=== PATIENT | male | born 1950 | race Caucasian/White ===

== ENCOUNTER 2016-05-01 10:56 | Emergency (ER) | payer MEDICARE, OTHER ==
[~2016-05-01] VITALS: Ht 162.6 cm; Wt 80.0 kg
[~2016-05-01 10:56] MED LIST: ASPI-650 PO; ATOR80TA75 PO; BENA10TA48 PO; CARV3.12 PO; CLON0.5T4 PO; FURO-110 PO; ISOS30TA5 PO; MONT10TA24 PO; OMEG500C PO; PYRI50CA PO; RANI150C11 PO; RANO500T2 PO
[2016-05-01 11:00] VITALS: Ht 162.6 cm; Wt 80.0 kg
[2016-05-01] MEDS ORDERED: NAPR-260 PO (12:52)
[2016-05-01] MEDS ORDERED: AMOX1TAB10 PO (12:52)
--- NOTE | 2016-05-01 12:59 | ERD ---
ER Documentation Chief Complaint Date/Time DATE: 05/01/16 TIME: 12:56 Chief Complaint pt bib family with c/o left ear swelling since yesterday HPI This is a 65-year-old male who presents to the emergency department today complaining of left ear pain that is sharp and stabbing and some swelling that started yesterday. Patient states he had a fever yesterday. Patient states he took [place] and ibuprofen. Patient states that 5 year 8- he took amoxicillin as he had many of his teeth removed and had dentures placed. Denies any sore throat, headache. ROS All systems reviewed and are negative except as per history of present illness. Medications Home Meds Active Scripts Naproxen* (Naprosyn*) 500 Mg Tablet, 500 MG PO BID Y for PAIN AND/OR INFLAMMATION, #30 TAB Prov:MALAIKA JUAREZ PA-C 05/01/16 Amoxicillin/Potassium Clav (Amox-Clav 875-125 mg Tablet) 875-125 mg Tab, 1 TAB PO BID for 10 Days, #20 TAB Prov:MALAIKA JUAREZ PA-C 05/01/16 Reported Medications Clonazepam* (Clonazepam*) 0.5 Mg Tablet, 0.5 MG PO DAILY 02/02/14 Pyridoxine Hcl* (Vitamin B-6*) 50 Mg Capsule, 100 MG PO DAILY 02/02/14 Furosemide* (Lasix*) 20 Mg Tablet, 20 MG PO Q48 PT TAKES LASIX 20 MG EVERY OTHER DAY. 02/02/14 Atorvastatin* (Atorvastatin*) 80 Mg Tablet, 80 MG PO DAILY 02/02/14 Montelukast Sodium* (Montelukast Sodium*) 10 Mg Tablet, 10 MG PO DAILY, TAB 0 Refills 07/19/13 [place]-3 Fatty Acids (Fish Oil) 500 Mg Capsule.dr, 1000 MG PO TID 07/19/13 Carvedilol* (Coreg*) 3.125 Mg Tablet, 3.125 MG PO DAILY, TAB 07/19/13 Isosorbide Mononitrate* (Isosorbide Mononitrate*) 30 Mg Tab.er.24h, 90 MG PO DAILY, TAB 07/19/13 Ranolazine* (Ranexa*) 500 Mg Tabsr, 1000 MG PO BID PT TAKES 2 TABS BID 1/16/13 Benazepril Hcl* (Benazepril Hcl*) 10 Mg Tablet, 10 MG PO BID 03/22/12 Aspirin (Aspirin) 81 Mg Tablet, 81 MG PO DAILY, 0 Refills 03/22/12 Ranitidine Hcl (Ranitidine Hcl) 150 Mg Capsule, 150 MG PO BID 03/22/12 Allergies Allergies: Coded Allergies: No Known Drug Allergies (Verified Allergy, Unknown, 07/19/13) PMhx/Soc History of Surgery: Yes (STENTS PLACEMENT X 12 SINCE 2004.) Anesthesia Reaction: No Hx Neurological Disorder: No Hx Respiratory Disorders: No Hx Cardiac Disorders: Yes (ME, HTN, 30%EF) Hx Psychiatric Problems: No Hx Miscellaneous Medical Probl: No Hx Alcohol Use: No Hx Substance Use: No Hx Tobacco Use: No (QUIT IN 2012) Smoking Status: Former smoker Physical Exam Vitals Vital Signs Date Time Temp Pulse Resp B/P Pulse Ox O2 Delivery O2 Flow Rate FiO2 05/01/16 11:00 97.5 68 16 117/65 100 Physical Exam Const: Talkative, laughing, no acute distress Head: Atraumatic Eyes: Normal Conjunctiva ENT: Right ear TM normal. Left ear mild TM erythema. Nose no drainage. Throat no erythema no exudate. Evidence of tooth removal. No evidence of abscess. Nontender tragus. Nontender mastoid. Neck: Full range of motion..~ No meningismus. Resp: Clear to auscultation bilaterally Cardio: Regular rate and rhythm, no murmurs Abd: Soft, non tender, non distended. Normal bowel sounds Skin: No petechiae or rashes Neur: Awake and alert Psych: Normal Mood and Affect Procedures/MDM This 65-year-old male who presents to the emergency department today complaining of left ear pain that started yesterday. Patient indicated that he had fevers. Patient is afebrile at this time. His oxygen saturations 100%. Physical exam patient had some mild TM erythema. There is no evidence of purulent drainage. Patient also had some tenderness down his TMJ joint and patient symptoms at this time may be related to otitis media versus dental pain versus TMJ symptom at this time. Given that the patient recently had surgical work done on his teeth I did give the patient a prescription for Augmentin. Of low suspicion for abscess, otitis externa, mastoiditis. I did instruct both the patient and the daughter to follow-up with her primary care physician in 2 days for further evaluation and management. I have explained to them that there are different antibiotics for different coverage and I felt that given the patient Augmentin at this time was the best choice to cover him for possible dental abscess versus otitis media. I will also give the patient a prescription for Naprosyn. At this time the patient is stable for discharge and outpatient management. Patient should follow up with their PCP in the next 1-2 days. They may return to the emergency department sooner for any persistent or worsening of symptoms. Patient and daughter understood and agreed with the plan. Departure Diagnosis: Primary Impression: Left ear pain Condition: Fair Patient Instructions: Otitis Media, Abx Tx (Adult) Referrals: RAJ MAJANO (ANAIT) (PCP) Additional Instructions: Call your primary care doctor TOMORROW for an appointment during the next 1-2 days.See the doctor sooner or return here if your condition worsens before your appointment time. Antibiotics as prescribed Take Naprosyn or Tylenol or Motrin for pain MALAIKA JUAREZ PA-C May 01, 2016 12:59
== END 2016-05-01 13:03 | disposition home or self-care (01) ==
LOC: FTE 10:56
DX: H92.02 Otalgia, left ear (principal); I10 Essential (primary) hypertension; Z87.891 Personal history of nicotine dependence; Z98.61 Coronary angioplasty status; Z79.82 Long term (current) use of aspirin
CPT/HCPCS: 99283

== ENCOUNTER 2016-06-15 18:44 | Inpatient (IN) | payer MEDICARE, OTHER ==
[~2016-06-15] VITALS: Ht 160 cm; Wt 82.8 kg
[~2016-06-15 18:44] MED LIST changes: +AMOX1TAB10 PO; +NAPR-260 PO
[2016-06-15] MEDS ORDERED: morphine 4 MG/ML VIAL IV STA (18:49)
[2016-06-15] MEDS ORDERED: ONDANSETRON 4 MG INJ IV STA (18:49)
[2016-06-15] MEDS ORDERED: NITROGLYCERIN 2% 1 GM OINT PKT TD STA (18:49)
[2016-06-15] MEDS ORDERED: NITROGLYCERIN (SL) 0.4 MG TAB SL PRN ×2 (19:00→23:00)
[2016-06-15 19:08] LABS: ADD SCAN DIFF NO
[2016-06-15 19:13] LABS: BASOPHILS % 0.2 % (0.0-2.0); EOSINOPHILS # 0.2 10^3/ul (0.0-0.5); EOSINOPHILS % 2.2 % (0.0-7.0); HEMATOCRIT 39.3 % (42.0-52.0); HEMOGLOBIN 13.3 g/dl (14.0-18.0); LYMPHOCYTES # 3.6 10^3/ul (0.8-2.9); LYMPHOCYTES % 44.6 % (15.0-51.0); MEAN CORPUSCULAR HEMOGLOBIN 30.4 pg (29.0-33.0); MEAN CORPUSCULAR HGB CONC 33.8 g/dl (32.0-37.0); MEAN CORPUSCULAR VOLUME 89.7 fl (82.0-101.0); MEAN PLATELET VOLUME 9.9 fl (7.4-10.4); MONOCYTE # 0.7 10^3/ul (0.3-0.9); NEUTROPHIL # 3.5 10^3/ul (1.6-7.5); NEUTROPHILS % 43.8 % (39.0-77.0); PLATELET COUNT 200 10^3/UL (140-415); RED BLOOD COUNT 4.38 10^6/ul (4.70-6.10)
[2016-06-15 19:25] LABS: INR 1.16; PROTIME 14.8 Sec (12.2-14.2); PT RATIO 1.2
[2016-06-15 19:26] LABS: PARTIAL THROMBOPLASTIN TIME 30.9 Sec (25.0-35.0)
[2016-06-15 19:27] LABS: CHLORIDE 107 mmol/L (97-110); POTASSIUM 3.8 mmol/L (3.5-5.1); SODIUM 141 mmol/L (135-144)
[2016-06-15 19:29] LABS: CREATININE 1.03 mg/dl (0.61-1.24)
[2016-06-15 19:30] LABS: ANION GAP 14 (8-16); BLOOD UREA NITROGEN 14 mg/dl (7-20); CARBON DIOXIDE 24 mmol/L (21-31); GLUCOSE 129 mg/dl (70-220)
--- NOTE | 2016-06-15 19:45 | RADRPT ---
PROCEDURE: XR Chest. CLINICAL INDICATION: Chest pain TECHNIQUE: A single portable view of the chest was obtained. COMPARISON: 10/26/2015 FINDINGS: The aorta is tortuous and atherosclerotic. The cardiomediastinal silhouette is otherwise within nor mal limits. The lungs and pleural spaces are clear. The soft tissues and osseous structures demons trate benign age related senescent changes. IMPRESSION: No acute cardiopulmonary disease. RPTAT: HPNM Physician Addison Date Time Electronically viewed and signed by Aj Whitlock Physician on 06/15/2016 19:44 /
[2016-06-15 20:21] LABS: TROPONIN-I < 0.012 ng/ml (0.00-0.12)
[2016-06-15] MEDS ORDERED: ONDANSETRON 4 MG INJ IV PRN ×2 (20:30→23:00)
[2016-06-15] MEDS ORDERED: ACETAMINOPHEN 325 MG TAB PO PRN ×2 (20:30→23:00)
[2016-06-15 21:13] VITALS: PULSE 60
[2016-06-15 21:22] VITALS: Ht 160 cm; Wt 82.8 kg
[2016-06-15 21:23] VITALS: BP 140/65; PULSE 63; RESP 19
[2016-06-15] MEDS ORDERED: RANO10002 PO (21:44)
[2016-06-15] MEDS ORDERED: MONT10TA21 PO (21:44)
[2016-06-15] MEDS ORDERED: CLOP75TA27 PO (21:44)
[2016-06-15] MEDS ORDERED: CHOL500010 PO (21:44)
[2016-06-15] MEDS ORDERED: AMLO2.5T2 PO (21:44)
[2016-06-15] MEDS ORDERED: PYRI50TA80 PO (21:44)
[2016-06-15] MEDS ORDERED: BENA10TA48 PO (21:44)
[2016-06-15] MEDS ORDERED: CARV6.25 PO (21:44)
[2016-06-15] MEDS ORDERED: RANI150C11 PO (21:44)
[2016-06-15] MEDS ORDERED: OMEG-80 PO (21:44)
[2016-06-15] MEDS ORDERED: ROSU20TA27 PO (21:49)
[2016-06-15] MEDS ORDERED: CLON0.5T26 PO (21:49)
[2016-06-15] MEDS ORDERED: ASPI-535 PO (21:49)
[2016-06-15] MEDS ORDERED: PROP50TA2 PO (21:49)
[2016-06-15] MEDS ORDERED: TAMS0.4C2 PO (21:49)
[2016-06-15] MEDS ORDERED: LAS20 PO (21:49)
[2016-06-15] MEDS ORDERED: ISOS60TA PO (21:49)
--- NOTE | 2016-06-15 21:54 | ERA ---
ER Documentation Chief Complaint Date/Time DATE: 06/15/16 TIME: 21:52 Chief Complaint bib ra c/o CP x 30min, intermittant all day, nonprovoked, nonradiating HPI Patient is a 65-year-old male with coronary artery disease and hypertension who presents with chest pain. The patient was brought in by ambulance. The symptoms started this morning. The pain is constant but comes and goes in intensity. He said the pain was initially 10 out of 10 but is now 4 out of 10 after aspirin and nitroglycerin. He is concerned for heart attack and says that he has 13 stents. Upon review of old medical records the patient has multiple visits to the ER for various complaints. 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 ROS All systems reviewed and are negative except as per history of present illness. Medications Home Meds Active Scripts Naproxen* (Naprosyn*) 500 Mg Tablet, 500 MG PO BID Y for PAIN AND/OR INFLAMMATION, #30 TAB Prov:MALAIKA JUAREZ PA-C 05/01/16 Amoxicillin/Potassium Clav (Amox-Clav 875-125 mg Tablet) 875-125 mg Tab, 1 TAB PO BID for 10 Days, #20 TAB Prov:MALAIKA JUAREZ PA-C 05/01/16 Reported Medications Furosemide (Lasix) 20 Mg Tab, 20 MG PO VERY OTHERDAY, TAB 06/15/16 Clonazepam (Clonazepam) 0.5 Mg Tab.rapdis, 0.5 MG PO 06/15/16 Tamsulosin Hcl* (Tamsulosin Hcl*) 0.4 Mg Cap.er.24h, 0.4 MG PO HS, CAP 06/15/16 Propylthiouracil* (Propylthiouracil*) 50 Mg Tablet, 50 MG PO DAILY, TAB 06/15/16 Rosuvastatin Calcium (Rosuvastatin Calcium) 20 Mg Tablet, 20 MG PO DAILY, TAB 06/15/16 Aspirin Ec (Aspir 81) 81 Mg Tablet.dr, 81 MG PO DAILY, #30 TAB 06/15/16 Isosorbide Mononitrate* (Isosorbide Mononitrate*) 60 Mg Tab.er.24h, 60 MG PO DAILY, TAB 06/15/16 Amlodipine Besylate* (Norvasc*) 2.5 Mg Tablet, 2.5 MG PO DAILY, TAB 06/15/16 Carvedilol* (Coreg*) 6.25 Mg Tablet, 6.25 MG PO BID, #60 TAB 06/15/16 Benazepril Hcl* (Benazepril Hcl*) 10 Mg Tablet, 10 MG PO BID, #60 TAB 06/15/16 Ranitidine Hcl (Ranitidine Hcl) 150 Mg Capsule, 150 MG PO BID, #60 CAP 06/15/16 Clopidogrel Bisulfate (Clopidogrel) 75 Mg Tablet, 75 MG PO DAILY, #30 TAB 06/15/16 Montelukast Sodium* (Singulair*) 10 Mg Tablet, 10 MG PO QHS, #30 TAB 06/15/16 Cholecalciferol (Vitamin D3) 5,000 Unit Tablet, 5000 UNIT PO DAILY, TAB 06/15/16 Pyridoxine Hcl (Vitamin B6) 50 Mg Tab, 50 MG PO DAILY, TAB 06/15/16 [place]-3S/Dha/Epa/Fish Oil/D3 (FISH OIL + D3 SOFTGEL) 1 Each Capsule, 1 EACH PO QAM, CAP 06/15/16 Ranolazine* (Ranexa*) 1,000 Mg Tab.sr.12h, 1000 MG PO Q12, TAB 06/15/16 Clonazepam* (Clonazepam*) 0.5 Mg Tablet, 0.5 MG PO DAILY 02/02/14 Pyridoxine Hcl* (Vitamin B-6*) 50 Mg Capsule, 100 MG PO DAILY 02/02/14 Furosemide* (Lasix*) 20 Mg Tablet, 20 MG PO Q48 PT TAKES LASIX 20 MG EVERY OTHER DAY. 02/02/14 Atorvastatin* (Atorvastatin*) 80 Mg Tablet, 80 MG PO DAILY 02/02/14 Montelukast Sodium* (Montelukast Sodium*) 10 Mg Tablet, 10 MG PO DAILY, TAB 0 Refills 07/19/13 [place]-3 Fatty Acids (Fish Oil) 500 Mg Capsule.dr, 1000 MG PO TID 07/19/13 Carvedilol* (Coreg*) 3.125 Mg Tablet, 3.125 MG PO DAILY, TAB 07/19/13 Isosorbide Mononitrate* (Isosorbide Mononitrate*) 30 Mg Tab.er.24h, 90 MG PO DAILY, TAB 07/19/13 Ranolazine* (Ranexa*) 500 Mg Tabsr, 1000 MG PO BID PT TAKES 2 TABS BID 03/22/12 Benazepril Hcl* (Benazepril Hcl*) 10 Mg Tablet, 10 MG PO BID 03/22/12 Aspirin (Aspirin) 81 Mg Tablet, 81 MG PO DAILY, 0 Refills 03/22/12 Ranitidine Hcl (Ranitidine Hcl) 150 Mg Capsule, 150 MG PO BID 03/22/12 Allergies Allergies: Coded Allergies: No Known Drug Allergies (Verified Allergy, Unknown, 07/19/13) PMhx/Soc History of Surgery: Yes (ANGIOGRAN LAST SEPTEMBER 2015) Anesthesia Reaction: No Hx Neurological Disorder: No Hx Respiratory Disorders: No Hx Cardiac Disorders: Yes (5 HEART ATTACKS CAD, ,HTN) Hx Psychiatric Problems: No Hx Miscellaneous Medical Probl: No Hx Alcohol Use: Yes (OCCASSIONALLY) Hx Substance Use: No Hx Tobacco Use: No (QUIT SMOKING 5YRS AGO) Smoking Status: Former smoker FmHx Family History: coronary disease Physical Exam Vitals Vital Signs Date Time Temp Pulse Resp B/P Pulse Ox O2 Delivery O2 Flow Rate FiO2 06/15/16 19:58 Nasal Cannula 2 06/15/16 19:55 65 100 Nasal Cannula 2.0 06/15/16 18:51 98.2 66 20 133/78 100 Physical Exam Const: No acute distress Head: Atraumatic Eyes: Normal Conjunctiva ENT: Normal External Ears, Nose and Mouth. Neck: Full range of motion..~ No meningismus. Resp: Clear to auscultation bilaterally Cardio: Regular rate and rhythm, no murmurs Abd: Soft, non tender, non distended. Normal bowel sounds Skin: No petechiae or rashes Back: No midline or flank tenderness Ext: No cyanosis, or edema Neur: Awake and alert Psych: Normal Mood and Affect Result Diagram: 06/15/16189906/15/161899 Results 24 hrs Laboratory Tests Test 06/15/16 19:00 White Blood Count 8.010^3/ul Red Blood Count 4.3810^6/ul Hemoglobin 13.3g/dl Hematocrit 39.3% Mean Corpuscular Volume 89.7fl Mean Corpuscular Hemoglobin 30.4pg Mean Corpuscular Hemoglobin Concent 33.8g/dl Red Cell Distribution Width 13.0% Platelet Count 34957^3/UL Mean Platelet Volume 9.9fl Neutrophils % 43.8% Lymphocytes % 44.6% Monocytes % 9.0% Eosinophils % 2.2% Basophils % 0.2% Nucleated Red Blood Cells % 0.0/100WBC Neutrophils # 3.510^3/ul Lymphocytes # 3.610^3/ul Monocytes # 0.710^3/ul Eosinophils # 0.210^3/ul Basophils # 0.010^3/ul Nucleated Red Blood Cells # 0.010^3/ul Prothrombin Time 14.8Sec Prothrombin Time Ratio 1.2 INR International Normalized Ratio 1.16 Activated Partial Thromboplast Time 30.9Sec Sodium Level 141mmol/L Potassium Level 3.8mmol/L Chloride Level 107mmol/L Carbon Dioxide Level 24mmol/L Anion Gap 14 Blood Urea Nitrogen 14mg/dl Creatinine 1.03mg/dl Glucose Level 129mg/dl Calcium Level 9.0mg/dl Troponin I < 0.012ng/ml Current Medications Medications (Trade) Dose Ordered Sig/Lenora Route PRN Reason Start Time Stop Time Status Last Admin Dose Admin Nitroglycerin (Nitroglycerin 2% Oint) 1 inch ONCE STAT TD 06/15/16 18:49 06/15/16 18:50 DC 06/15/16 19:11 Nitroglycerin (Nitroglycerin (Sl Tab) 0.4 Mg) 1 tab Q5M UP TO 3 DOSES PRN SL CHEST PAIN 06/15/16 19:00 06/15/16 19:12 Morphine Sulfate (morphine) 4 mg ONCE STAT IV 06/15/16 18:49 06/15/16 18:50 DC Ondansetron HCl (Zofran Inj) 4 mg ONCE STAT IV 06/15/16 18:49 06/15/16 18:50 DC Ondansetron HCl (Zofran Inj) 4 mg ER BRIDGE PRN IV NAUSEA AND/OR VOMITING 06/15/16 20:30 06/16/16 20:29 Acetaminophen (Tylenol Tab) 650 mg ER BRIDGE PRN PO MILD PAIN/FEVER 06/15/16 20:30 06/16/16 20:29 Procedures/MDM EKG read by me: Rate/Rhythm: Regular rate and rhythm at a normal rate Intervals: Normal Impression: No evidence of ischemia or arrhythmia PROCEDURE: XR Chest. CLINICAL INDICATION: Chest pain TECHNIQUE: A single portable view of the chest was obtained. COMPARISON: 10/26/2015 FINDINGS: The aorta is tortuous and atherosclerotic. The cardiomediastinal silhouette is otherwise within normal limits. The lungs and pleural spaces are clear. The soft tissues and osseous structures demonstrate benign age related senescent changes. IMPRESSION: No acute cardiopulmonary disease. RPTAT: HPNM Physician Addison Date Time Electronically viewed and signed by Aj Whitlock Physician on 06/15/2016 19 :44 Patient is a 65-year-old male with multiple cardiac risk factors who presents with chest pain. I am concerned for possible acute coronary syndrome. His initial EKG shows no acute ischemia. Chest x-ray shows no pneumonia or pneumothorax. Troponin was within normal limits. The patient was given aspirin nitroglycerin by paramedics and will be admitted to a telemetry bed. I spoke with the panel team for admission as his primary doctor does not have admitting privileges and he has Medicare A and B. He has anemia but does not require transfusion at this time. Departure Diagnosis: Primary Impression: Chest pain Qualified Code: R07.9 - Chest pain, unspecified type Additional Impression: Anemia Qualified Code: D64.9 - Anemia, unspecified type BRANDI RENEE MD Jun 15, 2016 21:54
[2016-06-15] MEDS ORDERED: morphine 10 MG INJ IM PRN (23:00)
[2016-06-16] VITALS (12 sets, daily range): BP systolic 113–131; BP diastolic 61–71; PULSE 59–67; RESP 16–20
[2016-06-16 01:11] LABS: CREATINE KINASE 73 IU/L (23-200)
[2016-06-16 01:37] LABS: CK-MB 0.67 ng/ml (0.0-2.4); TROPONIN-I < 0.012 ng/ml (0.00-0.12)
--- NOTE | 2016-06-16 03:19 | HP ---
Date/Time of Note Date/Time of Note DATE: 06/16/16 TIME: 03:01 Assessment/Plan VTE Prophylaxis VTE Prophylaxis Intervention: SCD's Lines/Catheters IV Catheter Type (from Nrsg): Saline Lock Urinary Cath still in place: No Assessment/Plan Assessment/Plan 1. Chest Pain - Oxygen, BB, statin, ACEI and as needed nitro and morphine - trop x 1 neg. will trend - Will notify Dr. 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 History of CAD, s/p multiple stent placement, including for in-stent restenosis - see above 3. Hypertension: BP within goal - cont meds with adjustment as needed 4. Dyslipidemia - Cont statin 5. BPH - cont med 6. Hyperthyroidism - cont PTU HPI/ROS Admit Date/Time Admit Date/Time Jun 15, 2016 at 20:32 Hx of Present Illness This is a 65-year-old Sinhala male with a past medical history of hypertension , hyperlipidemia, history of coronary artery disease, status post multiple coronary artery stent placement who was brought to ER for chest pain. He c/o intermittent sharp/pressure-like pain throughout the day acutely worsening with 10/10 intensity about 30 minutes prior to presentation. Pain improved to 4/10 after NGT x 3 and ASA 162 mg given by EMS. During last admission here in September of last year, he was brought in by Dr. August Brooks for a positive stress test and unstable angina and underwent a left heart catheterization which revealed in -stent restenosis. A drug-eluting stent was placed in mid circumflex in-stent restenosis. ER Course: Vitals and labs stable. trop x [address] with no ST elevation or depression. . PMH/Family/Social Past Medical History Medical History: high cholesterol, hypertension, hyperthyroid Past Surgical History Past Surgical Hx: other (cardiac stent) Social History Alcohol Use: occasionally Smoking Status: Former smoker Drug Use: none Exam/Review of Systems Vital Signs Vitals Vital Signs Date Time Temp Pulse Resp B/P Pulse Ox O2 Delivery O2 Flow Rate FiO2 06/16/16 00:46 98.3 66 18 121/63 97 06/15/16 21:54 Nasal Cannula 2.0 Intake and Output 06/15/16 06/15/16 06/16/16 15:00 23:00 07:00 Intake Total 60 ml Balance 60 ml Exam Constitutional: alert, oriented, well developed Head: atraumatic, normocephalic Eyes: EOMI, PERRL Respiratory: clear to auscultation, normal air movement Cardiovascular: nl pulses, regular rate and rhythm Gastrointestinal: non-tender, soft Extremities: normal pulses Labs Result Diagram: 06/15/16189906/15/161899 Medications Medications Current Medications Amlodipine Besylate (Norvasc) 2.5 mg DAILY PO ; Start 06/16/16 at 09:00 Aspirin (Halfprin) 81 mg DAILY PO ; Start 06/16/16 at 09:00 Benazepril HCl (Lotensin) 10 mg BID PO ; Start 06/16/16 at 09:00 Carvedilol (Coreg) 6.25 mg BID PO ; Start 06/16/16 at 09:00 Cholecalciferol (Vitamin D) 5,000 unit DAILY PO ; Start 06/16/16 at 09:00 Clopidogrel Bisulfate (plaVIX) 75 mg DAILY PO ; Start 06/16/16 at 09:00 Furosemide (Lasix) 20 mg DAILY@06 PO ; Start 06/16/16 at 06:00 Isosorbide Mononitrate (Imdur) 60 mg DAILY PO ; Start 06/16/16 at 09:00 Montelukast Sodium (Singulair) 10 mg QHS PO ; Start 06/16/16 at 21:00 Propylthiouracil (Ptu) 50 mg DAILY PO ; Start 06/16/16 at 09:00 Pyridoxine HCl (Vitamin B6) 50 mg DAILY PO ; Start 06/16/16 at 09:00 Ranitidine HCl (Zantac) 150 mg BID PO ; Start 06/16/16 at 09:00 Ranolazine (Ranexa) 1,000 mg Q12 PO ; Start 06/16/16 at 09:00 Tamsulosin HCl (Flomax) 0.4 mg HS PO ; Start 06/16/16 at 21:00 Fish Oil (Fish Oil) 1,000 mg DAILY PO ; Start 06/16/16 at 09:00 Atorvastatin Calcium (Lipitor) 80 mg DAILY@21 PO ; Start 06/16/16 at 21:00 Nitroglycerin (Nitroglycerin (Sl Tab) 0.4 Mg) 1 tab Q5M PRN SL ANGINA; Start at 23:00 Morphine Sulfate (morphine) 3 mg Q4H PRN IM PAIN; Start 06/15/16 at 23:00 Ondansetron HCl (Zofran Inj) 4 mg Q6H PRN IV NAUSEA AND/OR VOMITING; Start 01/21 at 23:00 Acetaminophen (Tylenol Tab) 650 mg Q6H PRN PO PAIN AND OR ELEVATED TEMP; Start 06/15/16 at 23:00 NAVARRO CASILLAS MD Jun 16, 2016 03:13
[2016-06-16] MEDS: FUROSEMIDE 20 MG TAB PO SCH (06:07)
[2016-06-16 07:43] LABS: ADD SCAN DIFF NO
[2016-06-16 07:49] LABS: BASOPHILS % 0.2 % (0.0-2.0); EOSINOPHILS # 0.2 10^3/ul (0.0-0.5); EOSINOPHILS % 1.8 % (0.0-7.0); HEMATOCRIT 41.2 % (42.0-52.0); HEMOGLOBIN 13.8 g/dl (14.0-18.0); LYMPHOCYTES # 3.2 10^3/ul (0.8-2.9); LYMPHOCYTES % 37.8 % (15.0-51.0); MEAN CORPUSCULAR HEMOGLOBIN 30.3 pg (29.0-33.0); MEAN CORPUSCULAR HGB CONC 33.5 g/dl (32.0-37.0); MEAN CORPUSCULAR VOLUME 90.5 fl (82.0-101.0); MEAN PLATELET VOLUME 9.9 fl (7.4-10.4); MONOCYTE # 0.6 10^3/ul (0.3-0.9); MONOCYTES % 7.5 % (0.0-11.0); NEUTROPHIL # 4.4 10^3/ul (1.6-7.5); NEUTROPHILS % 52.5 % (39.0-77.0); PLATELET COUNT 195 10^3/UL (140-415); RED BLOOD COUNT 4.55 10^6/ul (4.70-6.10); WHITE BLOOD COUNT 8.4 10^3/ul (4.8-10.8)
[2016-06-16 08:06] LABS: ALANINE AMINOTRANSFERASE 53 IU/L (13-69); ALBUMIN/GLOBULIN RATIO 1.29; ALKALINE PHOSPHATASE 77 IU/L (42-121); ANION GAP 8 (8-16); ASPARTATE AMINO TRANSFERASE 32 IU/L (15-46); BILIRUBIN,INDIRECT 0.5 mg/dl (0-1.1); BILIRUBIN,TOTAL 0.5 mg/dl (0.2-1.3); BLOOD UREA NITROGEN 14 mg/dl (7-20); CARBON DIOXIDE 27 mmol/L (21-31); CHLORIDE 108 mmol/L (97-110); CHOL/HDL RATIO 3.4 RATIO; CHOLESTEROL 184 mg/dl (100-200); CREATININE 0.92 mg/dl (0.61-1.24); GLUCOSE 86 mg/dl (70-220); HDL CHOLESTEROL 53 mg/dl (30-78); PHOSPHORUS 3.9 mg/dl (2.5-4.9); POTASSIUM 4.4 mmol/L (3.5-5.1); SODIUM 139 mmol/L (135-144); TOTAL PROTEIN 7.1 g/dl (6.1-8.1); TRIGLYCERIDES 188 mg/dl (0-149)
[2016-06-16 08:16] LABS: TROPONIN-I 0.015 ng/ml (0.00-0.12)
[2016-06-16 08:18] LABS: CK-MB 0.75 ng/ml (0.0-2.4)
[2016-06-16 08:52] LABS: THYROID STIMULATING HORMONE < 0.015 MIU/L (0.465-4.680)
[2016-06-16] MEDS: PYRIDOXINE 50 MG TAB PO SCH (08:58)
[2016-06-16] MEDS: RANOLAZINE (SR) 500 MG TAB PO SCH ×2 (08:58→20:44)
[2016-06-16] MEDS: FISH OIL 1,000 MG CAP PO SCH (08:58)
[2016-06-16] MEDS: ASPIRIN (EC) 81 MG TAB PO SCH (08:58)
[2016-06-16] MEDS: CLOPIDOGREL 75 MG TAB PO SCH (08:58)
[2016-06-16] MEDS: BENAZEPRIL 10 MG TAB PO SCH ×2 (08:59→20:46)
[2016-06-16] MEDS: PROPYLTHIOURACIL 50 MG TAB PO SCH (08:59)
[2016-06-16] MEDS: CHOLECALCIFEROL 1,000 UNIT TAB PO SCH (08:59)
[2016-06-16] MEDS: AMLODIPINE 2.5 MG TAB PO SCH (08:59)
[2016-06-16] MEDS: ISOSORBIDE MONONITRATE(SR)60 MG TAB PO SCH (09:00)
[2016-06-16] MEDS: RANITIDINE 150 MG TAB PO SCH ×2 (09:09→20:45)
--- NOTE | 2016-06-16 13:01 | PN ---
Date/Time of Note Date/Time of Note DATE: 06/16/16 TIME: 12:57 Assessment/Plan VTE Prophylaxis VTE Prophylaxis Intervention: LMWH Lines/Catheters [facility] Urinary Cath still in place: No Assessment/Plan Chief Complaint/Hosp Course Subjective: Nonexertional left-sided pressure chest pain at rest. No known aggravating or relieving factors. Lasted 15 minutes. Similar to previous angina. Took nitro and aspirin. Unrelieved and therefore came to ER. States he is adherent to his medications. No recent cough wheezing nausea vomiting travel edema. Positive diaphoresis. Objective: Vital signs stable. Sinus rhythm. Poor R-wave progression/age undetermined anteroseptal injury. Physical examination No pallor JVD Regular no murmur rub gallop CTA B but diminished bilaterally. No tachypnea Bowel sounds present nontender nondistended no RIG Extremities no edema or Homans sign Assessment and plan 1. Chest pain/stable angina. F/u w cardio recomm. Stable cont cont asa/statin/ bb/ACEi. 2. Chr cad/old DC. PCI 2015/in-stent restenosis. Cont asa/Brilinta etc. needs advanced care planning reevaluated 3. Past tobacco 4. COPD 5. Chronic hypertension 6. History of nonadherence 7. Chronic BPH 8. Ischemic cmy? EF =35-50% Problems: Exam/Review of Systems Vital Signs Vitals Vital Signs Date Time Temp Pulse Resp B/P Pulse Ox O2 Delivery O2 Flow Rate FiO2 06/16/16 12:14 59 06/16/16 05:38 98.0 19 131/71 98 Room Air 06/15/16 21:54 2.0 Intake and Output 06/15/16 06/15/16 06/16/16 15:00 23:00 07:00 Intake Total 60 ml 120 ml Balance 60 ml 120 ml Results Result Diagram: 06/16/16 0602 06/16/16 0600 Results 24 hrs Laboratory Tests Test 06/15/16 19:00 06/16/16 00:29 06/16/16 06:00 06/16/16 06:02 White Blood Count 8.0 # 8.4 Red Blood Count 4.38 L 4.55 L Hemoglobin 13.3 L 13.8 L Hematocrit 39.3 L 41.2 L Mean Corpuscular Volume 89.7 90.5 Mean Corpuscular Hemoglobin 30.4 30.3 Mean Corpuscular Hemoglobin Concent 33.8 33.5 Red Cell Distribution Width 13.0 13.0 Platelet Count 200 195 Mean Platelet Volume 9.9 9.9 Neutrophils % 43.8 52.5 Lymphocytes % 44.6 37.8 Monocytes % 9.0 7.5 Eosinophils % 2.2 1.8 Basophils % 0.2 0.2 Nucleated Red Blood Cells % 0.0 0.0 Neutrophils # 3.5 4.4 Lymphocytes # 3.6 H 3.2 H Monocytes # 0.7 0.6 Eosinophils # 0.2 0.2 Basophils # 0.0 0.0 Nucleated Red Blood Cells # 0.0 0.0 Prothrombin Time 14.8 H Prothrombin Time Ratio 1.2 INR International Normalized Ratio 1.16 Activated Partial Thromboplast Time 30.9 Sodium Level 141 139 Potassium Level 3.8 4.4 Chloride Level 107 108 Carbon Dioxide Level 24 27 Anion Gap 14 8 Blood Urea Nitrogen 14 14 Creatinine 1.03 0.92 Glucose Level 129 86 # Calcium Level 9.0 9.0 Troponin I < 0.012 < 0.012 0.015 Creatine Kinase 73 68 Creatine Kinase Index 0.9 1.1 Creatinine Kinase MB (Mass) 0.67 0.75 Hemoglobin A1c 5.4 Phosphorus Level 3.9 Magnesium Level 2.0 Total Bilirubin 0.5 Direct Bilirubin 0.00 Indirect Bilirubin 0.5 Aspartate Amino Transf (AST/SGOT) 32 Alanine Aminotransferase (ALT/SGPT) 53 Alkaline Phosphatase 77 Total Protein 7.1 Albumin 4.0 Globulin 3.10 Albumin/Globulin Ratio 1.29 Triglycerides Level 188 H Cholesterol Level 184 LDL Cholesterol, Calculated 93 HDL Cholesterol 53 Cholesterol/HDL Ratio 3.4 Thyroid Stimulating Hormone (TSH) < 0.015 L Free Thyroxine 1.24 Medications Medications Current Medications Amlodipine Besylate (Norvasc) 2.5 mg DAILY PO Last administered on 06/16/16 08 :59; Admin Dose 2.5 MG; Start 06/16/16 at 09:00 Aspirin (Halfprin) 81 mg DAILY PO Last administered on 06/16/16 08:58; Admin Dose 81 MG; Start 06/16/16 at 09:00 Benazepril HCl (Lotensin) 10 mg BID PO Last administered on 06/16/16 08:59; Admin Dose 10 MG; Start 06/16/16 at 09:00 Carvedilol (Coreg) 6.25 mg BID PO Last administered on 06/16/16 09:00; Admin Dose 6.25 MG; Start 06/16/16 at 09:00 Cholecalciferol (Vitamin D) 5,000 unit DAILY PO Last administered on 06/16/16 08:59; Admin Dose 5,000 UNIT; Start 06/16/16 at 09:00 Clopidogrel Bisulfate (plaVIX) 75 mg DAILY PO Last administered on 06/16/16 08 :58; Admin Dose 75 MG; Start 06/16/16 at 09:00 Furosemide (Lasix) 20 mg DAILY@06 PO Last administered on 06/16/16 06:07; Admin Dose 20 MG; Start 06/16/16 at 06:00 Isosorbide Mononitrate (Imdur) 60 mg DAILY PO Last administered on 06/16/16 09 :00; Admin Dose 60 MG; Start 06/16/16 at 09:00 Montelukast Sodium (Singulair) 10 mg QHS PO ; Start 06/16/16 at 21:00 Propylthiouracil (Ptu) 50 mg DAILY PO Last administered on 06/16/16 08:59; Admin Dose 50 MG; Start 06/16/16 at 09:00 Pyridoxine HCl (Vitamin B6) 50 mg DAILY PO Last administered on 06/16/16 08:58 ; Admin Dose 50 MG; Start 06/16/16 at 09:00 Ranitidine HCl (Zantac) 150 mg BID PO Last administered on 06/16/16 09:09; Admin Dose 150 MG; Start 06/16/16 at 09:00 Ranolazine (Ranexa) 1,000 mg Q12 PO Last administered on 06/16/16 08:58; Admin Dose 1,000 MG; Start 06/16/16 at 09:00 Tamsulosin HCl (Flomax) 0.4 mg HS PO ; Start 06/16/16 at 21:00 Fish Oil (Fish Oil) 1,000 mg DAILY PO Last administered on 06/16/16 08:58; Admin Dose 1,000 MG; Start 06/16/16 at 09:00 Atorvastatin Calcium (Lipitor) 80 mg DAILY@21 PO ; Start 06/16/16 at 21:00 Nitroglycerin (Nitroglycerin (Sl Tab) 0.4 Mg) 1 tab Q5M PRN SL ANGINA; Start at 23:00 Morphine Sulfate (morphine) 3 mg Q4H PRN IM PAIN; Start 06/15/16 at 23:00 Ondansetron HCl (Zofran Inj) 4 mg Q6H PRN IV NAUSEA AND/OR VOMITING; Start 01/21 at 23:00 Acetaminophen (Tylenol Tab) 650 mg Q6H PRN PO PAIN AND OR ELEVATED TEMP; Start 06/15/16 at 23:00 AGUSTIN AVENDAÑO MD Jun 16, 2016 13:01
[2016-06-16] MEDS ORDERED: ENOXAPARIN 80 MG/0.8 ML SYG SC SCH (13:30)
--- NOTE | 2016-06-16 15:01 | CONS ---
DATE OF ADMISSION: 06/15/2016 DATE OF CONSULTATION: 06/16/2016 REASON FOR CONSULTATION: Chest pain concerning for angina, assess for acute coronary syndrome. REQUESTING PHYSICIAN: Dr. Nair from the hospitalist service. HISTORY OF PRESENT ILLNESS: Mr. Anguiano is a 65-year-old male with history of hypertension, dysli pidemia, cardiomyopathy with decreased left ventricular ejection fraction, prior myocardial infarcti on, multiple prior PTCA and stent placement procedures, most recently receiving a PTCA and stent x1 to mid circumflex with 3.0 x 16 and PTCA with a cutting balloon to midcircumflex, PTCA with AngioScu lpt to in-stent restenosis in the LAD and additionally AngioSculpt to in-stent restenotic side and m id LAD x2, who now presents with complaints of recurrent substernal chest pain, worse with exertiona l activity. He describes a pressure-like sensation concerning for recurrent angina. Upon arrival, temperature of 98.2, blood pressure 133/78, pulse 60, respiratory rate 20, saturating 100%. The pat ient's labs revealed a white count of 8, hemoglobin 13.2, platelet count 200. Sodium of 141, potass ium 3.8, creatinine 1.0, BUN 14. Troponin negative. INR 1.1. The patient underwent a chest x-ray revealing no acute cardiopulmonary abnormalities. The patient's electrocardiogram with normal sinus rhythm, rate of 62, normal axis, normal intervals, with anteros eptal Q's and poor R-wave progression across the anterior precordial leads. Patient subsequently ad mitted to the floor and since admit to the floor continued to have chest pain. The patient has had additional troponins return negative x2 negative troponins. PAST MEDICAL HISTORY: As above in HPI. MEDICATIONS CURRENTLY IN HOSPITAL: 1. Singular. 2. Flomax 0.4 mg daily. 3. Lipitor 80 mg at bedtime. 4. Lovenox 80 mg subQ q.12h. 5. Norvasc 2.5 mg daily. 6. Aspirin 81 mg daily. 7. Benazepril 10 mg b.i.d. 8. Carvedilol 6.25 mg p.o. b.i.d. 9. Plavix 75 mg daily. 10. Imdur 60 mg daily. 11. PTU 50 mg daily. 12. Vitamin B6. 13. Zantac. 14. Ranexa 1000 mg q.12h. 15. Fish oil 1000 mg daily. 16. . 17. Morphine p.r.n. 18. Zofran p.r.n. 19. Tylenol p.r.n. ALLERGIES: NO KNOWN DRUG ALLERGIES. SOCIAL HISTORY: Remote tobacco. Social ETOH. No illicit drug use. FAMILY HISTORY: No history of sudden cardiac or early CAD. REVIEW OF SYSTEMS: As above in HPI. CONSTITUTIONAL: No fevers, chills. PULMONARY: Shortness of breath. CARDIOVASCULAR: Intermittent chest pain. GASTROINTESTINAL: No vomiting. GENITOURINARY: No hematuria. MUSCULOSKELETAL: Degenerative joint disease. PSYCHIATRIC: The patient denies depression. NEUROLOGIC: No documented history of CVA. PHYSICAL EXAMINATION: VITAL SIGNS: Temperature 98, blood pressure 131/71, pulse 60, respiration 19m, saturating 98%. GENERAL: The patient is alert, awake, complaining of substernal chest pain. NECK: JVP approximately 9 cm of water. CHEST: Fair movement throughout with mildly decreased breath sounds at bases bilaterally. HEART: Regular rate and rhythm. Normal S1, S2, I/ systolic murmur, laterally displaced PMI. ABDOMEN: Positive bowel sounds, soft. EXTREMITIES: No edema, 1+ pulses bilaterally, posterior tibial. LABORATORIES: As above in HPI, with most recent from today sodium 139, potassium 4.4, creatinine 0. 9, BUN 14. Hemoglobin A1c of 5.4. LDL 93, HDL 53. TSH suppressed at less than 0.015 with a normal free T4. IMAGING STUDIES: As above in HPI. No further imaging studies for my review at this time. ECG: As above in HPI. No further electrocardiograms for my review at this time. IMPRESSION: 1. Angina, recurrent with a history of multiple prior PTCA and stent placement procedures. 2. History of percutaneous transluminal coronary angioplasty and stent placement, most recently in 09/2015 to circumflex. 3. History of cardiomyopathy, decreased left ventricular ejection fraction last approximately 35% t o 40%. 4. Abnormal electrocardiogram, assess for acute coronary syndrome. 5. Hypertension, reasonable control. 6. Dyslipidemia. 7. History of remote tobacco intake. RECOMMENDATIONS: 1. At this time, would maintain the patient on telemetry monitoring to follow rhythm and rate contr ol closely. 2. Complete the patient's rule out for myocardial infarction to ensure the patient's angina has not resulted in non-ST elevation myocardial infarction or acute myocardial infarction. 3. Continue the patient's current aspirin and Plavix. 4. Additionally, continue the patient's current Norvasc, carvedilol and Imdur for blood pressure co ntrol and antianginal effects. 5. Discontinue the patient's Finasteride afterload reduction. 6. Follow the patient's volume status closely. 7. Continue the patient's statin therapy. We will decrease from 80 to 40 and we will decrease the patient's full dose of anticoagulation at this time given negative troponins. 8. Depending on the patient's ongoing symptomatology of chest pain, EKG abnormalities, the patient will likely benefit from further inpatient evaluation and assessment of anatomy with either stress t est or for ongoing symptoms directly to catheterization for left heart catheterization, given sympto ms consistent with angina. Thank you for allowing me to take part in the care of this patient. I will continue to follow along very closely with you. Further recommendations will be made as the patient progresses through his inpatient hospital clinical course. Dictated By: CHAN BOWDEN/HILDA Conf#: [id number] DID#: [id number] CC: NAVARRO NAIR MD;*EndCC*
[2016-06-16] MEDS: MONTELUKAST 10 MG TAB PO SCH (20:44)
[2016-06-16] MEDS: TAMSULOSIN (SR) 0.4 MG CAP PO SCH (20:45)
[2016-06-16] MEDS: ATORVASTATIN 80 MG TAB PO SCH (20:45)
[2016-06-17] VITALS (26 sets, daily range): BP systolic 101–193; BP diastolic 65–135; PULSE 54–75; RESP 12–26
[2016-06-17] MEDS: FUROSEMIDE 20 MG TAB PO SCH (06:00)
[2016-06-17] MEDS ORDERED: LIDOCAINE 1% (MDV) 20 ML INJ ONE (07:50)
[2016-06-17] MEDS ORDERED: IODIXANOL LOCM 100 ML BTL ONE ×2 (07:50→09:23)
[2016-06-17] MEDS ORDERED: NITROGLYCERIN (IC) 100 MCG/ML INJ ONE (07:51)
[2016-06-17] MEDS ORDERED: VERAPAMIL 5 MG INJ ONE (07:51)
[2016-06-17] MEDS ORDERED: MIDAZOLAM 1 MG/ML 2 ML INJ ONE (07:52)
[2016-06-17] MEDS ORDERED: HEPARIN 1000 UNITS/ML 10 ML INJ ONE (07:52)
[2016-06-17] MEDS ORDERED: FENTAnyl 50 MCG/ML VIAL ONE (07:52)
[2016-06-17] MEDS ORDERED: DIPHENHYDRAMINE 50 MG CAP PO ONE (08:00)
[2016-06-17] MEDS ORDERED: DIAZEPAM 5 MG TAB PO ONE (08:00)
[2016-06-17 08:05] LABS: ADD SCAN DIFF NO
[2016-06-17 08:11] LABS: BASOPHILS % 0.3 % (0.0-2.0); EOSINOPHILS # 0.1 10^3/ul (0.0-0.5); HEMATOCRIT 45.2 % (42.0-52.0); HEMOGLOBIN 14.6 g/dl (14.0-18.0); LYMPHOCYTES # 2.4 10^3/ul (0.8-2.9); LYMPHOCYTES % 34.9 % (15.0-51.0); MEAN CORPUSCULAR HEMOGLOBIN 29.4 pg (29.0-33.0); MEAN CORPUSCULAR HGB CONC 32.3 g/dl (32.0-37.0); MEAN CORPUSCULAR VOLUME 91.1 fl (82.0-101.0); MEAN PLATELET VOLUME 9.8 fl (7.4-10.4); MONOCYTE # 0.6 10^3/ul (0.3-0.9); NEUTROPHIL # 3.8 10^3/ul (1.6-7.5); NEUTROPHILS % 54.4 % (39.0-77.0); PLATELET COUNT 194 10^3/UL (140-415); RED BLOOD COUNT 4.96 10^6/ul (4.70-6.10); RED CELL DISTRIBUTION WIDTH 13.2 % (11.5-14.5)
[2016-06-17 08:21] LABS: INR 1.06; PROTIME 13.8 Sec (12.2-14.2); PT RATIO 1.1
[2016-06-17 08:25] LABS: CALCIUM 9.2 mg/dl (8.4-10.2); CREATININE 0.95 mg/dl (0.61-1.24); MAGNESIUM 2.1 mg/dl (1.7-2.5); PHOSPHORUS 4.2 mg/dl (2.5-4.9); POTASSIUM 4.3 mmol/L (3.5-5.1)
[2016-06-17] MEDS: PYRIDOXINE 50 MG TAB PO SCH (09:00)
[2016-06-17] MEDS: RANOLAZINE (SR) 500 MG TAB PO SCH ×2 (09:00→21:35)
[2016-06-17] MEDS: RANITIDINE 150 MG TAB PO SCH ×2 (09:00→20:49)
[2016-06-17] MEDS: ISOSORBIDE MONONITRATE(SR)60 MG TAB PO SCH (09:00)
[2016-06-17] MEDS: BENAZEPRIL 10 MG TAB PO SCH ×2 (09:00→20:48)
[2016-06-17] MEDS: AMLODIPINE 2.5 MG TAB PO SCH (09:00)
[2016-06-17] MEDS: ASPIRIN (EC) 81 MG TAB PO SCH (09:00)
[2016-06-17] MEDS: FISH OIL 1,000 MG CAP PO SCH (09:00)
[2016-06-17] MEDS: CLOPIDOGREL 75 MG TAB PO SCH (09:00)
[2016-06-17] MEDS: PROPYLTHIOURACIL 50 MG TAB PO SCH (09:00)
[2016-06-17] MEDS: CHOLECALCIFEROL 1,000 UNIT TAB PO SCH (09:00)
--- NOTE | 2016-06-17 09:04 | RADRPT ---
PROCEDURE: XR Chest. CLINICAL INDICATION: CHF. Shortness of breath. TECHNIQUE: Single frontal chest x-ray. COMPARISON: Chest radiograph 10/26/2015. FINDINGS: The cardiomediastinal silhouette is unremarkable. Aortic atherosclerotic vascular calcifications are identified. Mild linear atelectasis in the mid left lung zone. No pneumothorax, pleural effusion or consolidati on is seen. No acute osseous abnormality is noted. IMPRESSION: 1. Mild linear atelectasis in the mid left lung zone. 2. Aortic atherosclerosis. 3. Otherwise no acute cardiopulmonary abnormality. RPTAT: HFN .Kirill Du MD, Date Time Electronically viewed and signed by .Kirill Du MD, MD on 06/17/2016 09:04 .N/
[2016-06-17] MEDS ORDERED: BIVALIRUDIN 250MG /NS 50 ML 50 ML IVPB ONE (09:14)
[2016-06-17] MEDS ORDERED: IOHEXOL 350MG/ML 50 ML BTL ONE (09:23)
[2016-06-17] MEDS ORDERED: ASPIRIN 325 MG TAB ONE (10:12)
[2016-06-17] MEDS ORDERED: CLOPIDOGREL 300 MG TAB ONE (10:13)
[2016-06-17] MEDS ORDERED: SOD CHLORIDE 0.9% 1,000 ML IV SCH (10:18)
[2016-06-17] MEDS ORDERED: ZOLPIDEM 5 MG TAB PO PRN (10:30)
[2016-06-17] MEDS ORDERED: OXYCODONE/ACETAMINOPHEN (5/325) TAB PO PRN (10:30)
[2016-06-17] MEDS ORDERED: ACETAMINOPHEN 325 MG TAB PO PRN (10:30)
[2016-06-17] MEDS ORDERED: morphine 2 MG INJ IV PRN (10:30)
--- NOTE | 2016-06-17 10:47 | CONS ---
Date/Time of Note Date/Time of Note DATE: 06/17/16 TIME: 10:41 Assessment/Plan Assessment/Plan Chief Complaint/Hosp Course IMPRESSION: 1. Angina, recurrent with a history of multiple prior PTCA and stent placement procedures.-negative troponin x 3 but ongoing chest pain. Now POD#0 s/p PTCA alone to in-stent restenosis in mid LAD and in-stent restenosis in mid RCA 2. History of percutaneous transluminal coronary angioplasty and stent placement, most recently in 09/2015 to circumflex. 3. History of cardiomyopathy, decreased left ventricular ejection fraction last approximately 35% to 40%. 4. Abnormal electrocardiogram, assess for acute coronary syndrome. 5. Hypertension, reasonable control. 6. Dyslipidemia.-LDL 93 HDL 53 7. History of remote tobacco intake. Recc: -Tele/ICU post-op -serial ecg's -Continue current asa/Plavix post- cath -Continue curent BB/ACEI/oral nitrates -Continue statin/ranexa -D/C planhning for tomorow AM if stable/asymptomatic on current medications Problems: Consultation Date/Type/Reason Admit Date/Time Jun 15, 2016 at 20:32 Initial Consult Date 06/16/16 Type of Consultation: Cardiology Reason for Consultation Chest pain/angina Referring Provider: YELENA CABRAL MD Exam/Review of Systems Vital Signs Vitals Vital Signs Date Time Temp Pulse Resp B/P Pulse Ox O2 Delivery O2 Flow Rate FiO2 06/17/16 08:11 56 06/17/16 07:20 98.0 18 137/65 94 06/16/16 18:30 Room Air 06/15/16 21:54 2.0 Intake and Output 06/16/16 06/16/16 06/17/16 15:00 23:00 07:00 Intake Total 220 ml Balance 220 ml Exam Review of Systems: CONSTITUTIONAL: No fevers, chills. PULMONARY: No sob CARDIOVASCULAR: Intermittent chest pain GASTROINTESTINAL: No nausea/vomiting. GENITOURINARY: No hematuria/dysuria. MUSCULOSKELETAL: No myagias/arthalgias. PSYCHIATRIC: The patient denies depression. NEUROLOGIC: No weakness Constitutional: alert, oriented Psych: no complaints Head: normocephalic ENMT: mucosa pink and moist Neck: jvd (9 cm water), supple Respiratory: clear to auscultation Cardiovascular: regular rate and rhythm Gastrointestinal: non-tender, soft Extremities: edema (none) Neurological: other Results Result Diagram: 06/17/16 0740 06/17/16 0740 Results 24 hrs Laboratory Tests Test 06/17/16 07:40 White Blood Count 7.0 Red Blood Count 4.96 Hemoglobin 14.6 Hematocrit 45.2 Mean Corpuscular Volume 91.1 Mean Corpuscular Hemoglobin 29.4 Mean Corpuscular Hemoglobin Concent 32.3 Red Cell Distribution Width 13.2 Platelet Count 194 Mean Platelet Volume 9.8 Neutrophils % 54.4 Lymphocytes % 34.9 Monocytes % 8.0 Eosinophils % 2.0 Basophils % 0.3 Nucleated Red Blood Cells % 0.0 Neutrophils # 3.8 Lymphocytes # 2.4 Monocytes # 0.6 Eosinophils # 0.1 Basophils # 0.0 Nucleated Red Blood Cells # 0.0 Prothrombin Time 13.8 Prothrombin Time Ratio 1.1 INR International Normalized Ratio 1.06 Sodium Level 140 Potassium Level 4.3 Chloride Level 107 Carbon Dioxide Level 24 Anion Gap 13 Blood Urea Nitrogen 17 Creatinine 0.95 Glucose Level 101 Hemoglobin A1c 5.4 Calcium Level 9.2 Phosphorus Level 4.2 Magnesium Level 2.1 Lipase 66 Medications Medications Current Medications Amlodipine Besylate (Norvasc) 2.5 mg DAILY PO Last administered on 06/16/16 08 :59; Admin Dose 2.5 MG; Start 06/16/16 at 09:00 Aspirin (Halfprin) 81 mg DAILY PO Last administered on 06/16/16 08:58; Admin Dose 81 MG; Start 06/16/16 at 09:00 Benazepril HCl (Lotensin) 10 mg BID PO Last administered on 06/16/16 20:46; Admin Dose 10 MG; Start 06/16/16 at 09:00 Carvedilol (Coreg) 6.25 mg BID PO Last administered on 06/16/16 20:45; Admin Dose 6.25 MG; Start 06/16/16 at 09:00 Cholecalciferol (Vitamin D) 5,000 unit DAILY PO Last administered on 06/16/16 08:59; Admin Dose 5,000 UNIT; Start 06/16/16 at 09:00 Clopidogrel Bisulfate (plaVIX) 75 mg DAILY PO Last administered on 06/16/16 08 :58; Admin Dose 75 MG; Start 06/16/16 at 09:00 Furosemide (Lasix) 20 mg DAILY@06 PO Last administered on 06/16/16 06:07; Admin Dose 20 MG; Start 06/16/16 at 06:00 Isosorbide Mononitrate (Imdur) 60 mg DAILY PO Last administered on 06/16/16 09 :00; Admin Dose 60 MG; Start 06/16/16 at 09:00 Montelukast Sodium (Singulair) 10 mg QHS PO Last administered on 06/16/16 20: 44; Admin Dose 10 MG; Start 06/16/16 at 21:00 Propylthiouracil (Ptu) 50 mg DAILY PO Last administered on 06/16/16 08:59; Admin Dose 50 MG; Start 06/16/16 at 09:00 Pyridoxine HCl (Vitamin B6) 50 mg DAILY PO Last administered on 06/16/16 08:58 ; Admin Dose 50 MG; Start 06/16/16 at 09:00 Ranitidine HCl (Zantac) 150 mg BID PO Last administered on 06/16/16 20:45; Admin Dose 150 MG; Start 06/16/16 at 09:00 Ranolazine (Ranexa) 1,000 mg Q12 PO Last administered on 06/16/16 20:44; Admin Dose 1,000 MG; Start 06/16/16 at 09:00 Tamsulosin HCl (Flomax) 0.4 mg HS PO Last administered on 06/16/16 20:45; Admin Dose 0.4 MG; Start 06/16/16 at 21:00 Fish Oil (Fish Oil) 1,000 mg DAILY PO Last administered on 06/16/16 08:58; Admin Dose 1,000 MG; Start 06/16/16 at 09:00 Atorvastatin Calcium (Lipitor) 80 mg DAILY@21 PO Last administered on 20:45; Admin Dose 80 MG; Start 06/16/16 at 21:00 Nitroglycerin (Nitroglycerin (Sl Tab) 0.4 Mg) 1 tab Q5M PRN SL ANGINA; Start at 23:00 Morphine Sulfate (morphine) 3 mg Q4H PRN IM PAIN; Start 06/15/16 at 23:00 Ondansetron HCl (Zofran Inj) 4 mg Q6H PRN IV NAUSEA AND/OR VOMITING; Start 01/21 at 23:00 Acetaminophen (Tylenol Tab) 650 mg Q6H PRN PO PAIN AND OR ELEVATED TEMP; Start 06/15/16 at 23:00 Miscellaneous Information (* Miscellaneous Pharmacy Order) Hold all Metformin ... ONCE ONCE XX ; Start 06/17/16 at 10:30; Stop 06/17/16 at 10:31; Status UNV Acetaminophen (Tylenol Tab) 650 mg Q4H PRN PO NON-CARDIAC PAIN LEVEL 1-3; Start 06/17/16 at 10:30; Status UNV Oxycodone/ Acetaminophen (Percocet (5/ 325)) 1 tab Q4H PRN PO REPORTED NON- CARDIAC PAIN 4-7; Start 06/17/16 at 10:30; Status UNV Morphine Sulfate 1 mg 1 mg Q1H PRN IV PAIN NOT RELIEVED BY OTHERS; Start at 10:30; Status UNV Sodium Chloride (NS) 1,000 ml @ 75 mls/hr [id number] IV ; Start 06/17/16 at 10:18 ; Stop 06/17/16 at 23:37; Status UNV CHAN OTTO Jun 17, 2016 10:47
--- NOTE | 2016-06-17 13:54 | PN ---
Date/Time of Note Date/Time of Note DATE: 06/17/16 TIME: 13:51 Assessment/Plan VTE Prophylaxis VTE Prophylaxis Intervention: heparin Lines/Catheters IV [facility]ter [facility] Urinary Cath still in place: No Assessment/Plan Chief Complaint/Hosp Course S: 06/16-Nonexertional left-sided pressure chest pain at rest. No known aggravating or relieving factors. Lasted 15 minutes. Similar to previous angina. Took nitro and aspirin. Unrelieved and therefore came to ER. States he is adherent to his medications. No recent cough wheezing nausea vomiting travel edema. Positive diaphoresis. 06/17- no cp/dyspnea; sp cath O: Vss. PE No pallor JVD Reg; no m/r/g CTAB+/ but dimin bilat. Bs +nt nd r/r/g Ext no edema or Homans sign A/P 1. ACS. In-stent restenosis-mid LAD/mid RCAF. Stable cont cont asa/statin/bb/ ACEi/cnnlhm-hpvivrv-prj. 2. 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 PCI 2015/in-stent restenosis. Cont asa/Brilinta etc. needs advanced care planning reevaluated 3. Past tobacco 4. COPD 5. Chr htn 6. Ho nonadherence 7. Chr BPH 8. Ischemic cmy? EF =35-50% Problems: Exam/Review of Systems Vital Signs Vitals Vital Signs Date Time Temp Pulse Resp B/P Pulse Ox O2 Delivery O2 Flow Rate FiO2 06/17/16 13:00 55 17 122/106 99 Room Air 06/17/16 11:00 97.6 06/15/16 21:54 2.0 Intake and Output 06/16/16 06/16/16 06/17/16 15:00 23:00 07:00 Intake Total 220 ml Balance 220 ml Results Result Diagram: 06/17/16 0740 06/17/16 0740 Results 24 hrs Laboratory Tests Test 06/17/16 07:40 White Blood Count 7.0 Red Blood Count 4.96 Hemoglobin 14.6 Hematocrit 45.2 Mean Corpuscular Volume 91.1 Mean Corpuscular Hemoglobin 29.4 Mean Corpuscular Hemoglobin Concent 32.3 Red Cell Distribution Width 13.2 Platelet Count 194 Mean Platelet Volume 9.8 Neutrophils % 54.4 Lymphocytes % 34.9 Monocytes % 8.0 Eosinophils % 2.0 Basophils % 0.3 Nucleated Red Blood Cells % 0.0 Neutrophils # 3.8 Lymphocytes # 2.4 Monocytes # 0.6 Eosinophils # 0.1 Basophils # 0.0 Nucleated Red Blood Cells # 0.0 Prothrombin Time 13.8 Prothrombin Time Ratio 1.1 INR International Normalized Ratio 1.06 Sodium Level 140 Potassium Level 4.3 Chloride Level 107 Carbon Dioxide Level 24 Anion Gap 13 Blood Urea Nitrogen 17 Creatinine 0.95 Glucose Level 101 Hemoglobin A1c 5.4 Calcium Level 9.2 Phosphorus Level 4.2 Magnesium Level 2.1 Lipase 66 Medications Medications Current Medications Amlodipine Besylate (Norvasc) 2.5 mg DAILY PO Last administered on 06/16/16 08 :59; Admin Dose 2.5 MG; Start 06/16/16 at 09:00 Aspirin (Halfprin) 81 mg DAILY PO Last administered on 06/16/16 08:58; Admin Dose 81 MG; Start 06/16/16 at 09:00 Benazepril HCl (Lotensin) 10 mg BID PO Last administered on 06/16/16 20:46; Admin Dose 10 MG; Start 06/16/16 at 09:00 Carvedilol (Coreg) 6.25 mg BID PO Last administered on 06/16/16 20:45; Admin Dose 6.25 MG; Start 06/16/16 at 09:00 Cholecalciferol (Vitamin D) 5,000 unit DAILY PO Last administered on 06/16/16 08:59; Admin Dose 5,000 UNIT; Start 06/16/16 at 09:00 Clopidogrel Bisulfate (plaVIX) 75 mg DAILY PO Last administered on 06/16/16 08 :58; Admin Dose 75 MG; Start 06/16/16 at 09:00 Furosemide (Lasix) 20 mg DAILY@06 PO Last administered on 06/16/16 06:07; Admin Dose 20 MG; Start 06/16/16 at 06:00 Isosorbide Mononitrate (Imdur) 60 mg DAILY PO Last administered on 06/16/16 09 :00; Admin Dose 60 MG; Start 06/16/16 at 09:00 Montelukast Sodium (Singulair) 10 mg QHS PO Last administered on 06/16/16 20: 44; Admin Dose 10 MG; Start 06/16/16 at 21:00 Propylthiouracil (Ptu) 50 mg DAILY PO Last administered on 06/16/16 08:59; Admin Dose 50 MG; Start 06/16/16 at 09:00 Pyridoxine HCl (Vitamin B6) 50 mg DAILY PO Last administered on 06/16/16 08:58 ; Admin Dose 50 MG; Start 06/16/16 at 09:00 Ranitidine HCl (Zantac) 150 mg BID PO Last administered on 06/16/16 20:45; Admin Dose 150 MG; Start 06/16/16 at 09:00 Ranolazine (Ranexa) 1,000 mg Q12 PO Last administered on 06/16/16 20:44; Admin Dose 1,000 MG; Start 06/16/16 at 09:00 Tamsulosin HCl (Flomax) 0.4 mg HS PO Last administered on 06/16/16 20:45; Admin Dose 0.4 MG; Start 06/16/16 at 21:00 Fish Oil (Fish Oil) 1,000 mg DAILY PO Last administered on 06/16/16 08:58; Admin Dose 1,000 MG; Start 06/16/16 at 09:00 Atorvastatin Calcium (Lipitor) 80 mg DAILY@21 PO Last administered on 20:45; Admin Dose 80 MG; Start 06/16/16 at 21:00 Nitroglycerin (Nitroglycerin (Sl Tab) 0.4 Mg) 1 tab Q5M PRN SL ANGINA; Start at 23:00 Morphine Sulfate (morphine) 3 mg Q4H PRN IM PAIN; Start 06/15/16 at 23:00 Ondansetron HCl (Zofran Inj) 4 mg Q6H PRN IV NAUSEA AND/OR VOMITING; Start 01/21 at 23:00 Acetaminophen (Tylenol Tab) 650 mg Q4H PRN PO NON-CARDIAC PAIN LEVEL 1-3; Start 06/17/16 at 10:30 Oxycodone/ Acetaminophen (Percocet (5/ 325)) 1 tab Q4H PRN PO REPORTED NON- CARDIAC PAIN 4-7 Last administered on 06/17/16 12:21; Admin Dose 1 TAB; Start 06/17/16 at 10:30 Morphine Sulfate 1 mg 1 mg Q1H PRN IV PAIN NOT RELIEVED BY OTHERS; Start at 10:30 Sodium Chloride (NS) 1,000 ml @ 75 mls/hr [id number] IV Last administered on 06/17t 12:13; Admin Dose 75 MLS/HR; Start 06/17/16 at 10:18; Stop 06/17/16 at 23: 37 AGUSTIN AVENDAÑO MD Jun 17, 2016 13:54
[2016-06-17] MEDS: TAMSULOSIN (SR) 0.4 MG CAP PO SCH (20:48)
[2016-06-17] MEDS: ATORVASTATIN 80 MG TAB PO SCH (20:49)
[2016-06-17] MEDS: MONTELUKAST 10 MG TAB PO SCH (20:50)
[2016-06-18] VITALS (11 sets, daily range): BP systolic 102–137; BP diastolic 57–103; PULSE 55–79; RESP 17–20
[2016-06-18 04:45] LABS: ADD SCAN DIFF NO
[2016-06-18 04:53] LABS: BASOPHILS % 0.3 % (0.0-2.0); EOSINOPHILS # 0.2 10^3/ul (0.0-0.5); EOSINOPHILS % 2.4 % (0.0-7.0); HEMATOCRIT 41.4 % (42.0-52.0); HEMOGLOBIN 13.4 g/dl (14.0-18.0); LYMPHOCYTES # 3.1 10^3/ul (0.8-2.9); LYMPHOCYTES % 35.7 % (15.0-51.0); MEAN CORPUSCULAR HEMOGLOBIN 29.8 pg (29.0-33.0); MEAN CORPUSCULAR HGB CONC 32.4 g/dl (32.0-37.0); MEAN PLATELET VOLUME 9.8 fl (7.4-10.4); MONOCYTE # 0.8 10^3/ul (0.3-0.9); MONOCYTES % 9.6 % (0.0-11.0); NEUTROPHIL # 4.5 10^3/ul (1.6-7.5); NEUTROPHILS % 51.7 % (39.0-77.0); PLATELET COUNT 167 10^3/UL (140-415); RED CELL DISTRIBUTION WIDTH 13.2 % (11.5-14.5); WHITE BLOOD COUNT 8.7 10^3/ul (4.8-10.8)
[2016-06-18 05:17] LABS: MAGNESIUM 1.9 mg/dl (1.7-2.5)
[2016-06-18 05:44] LABS: POTASSIUM 4.8 mmol/L (3.5-5.1)
[2016-06-18 05:46] LABS: CREATININE 0.98 mg/dl (0.61-1.24)
[2016-06-18 05:47] LABS: CALCIUM 8.9 mg/dl (8.4-10.2)
[2016-06-18] MEDS: FUROSEMIDE 20 MG TAB PO SCH (05:53)
--- NOTE | 2016-06-18 08:07 | CARRPT ---
DATE OF PROCEDURE: 06/16/2016 TYPE OF PROCEDURE: 1. Left heart catheterization. 2. Measurement of left ventricular end-diastolic pressure. 3. Percutaneous transluminal coronary angioplasty to mid right coronary artery. 4. Percutaneous transluminal coronary angioplasty to mid LAD. ATTENDING PHYSICIAN: Chan Brooks MD REFERRING PHYSICIAN: Self-referred. INDICATIONS: Chest pain consistent with angina, history of PTCA and stent placement. TYPE OF ANESTHESIA: Conscious and local. BRIEF HISTORY AND HOSPITAL COURSE: Mr. Anguiano is a 65-year-old male with history of hypertension , dyslipidemia, coronary artery disease, status post multiple prior PTCA and stent placements, most recently with drug-eluting stent to circumflex and PTCA to LAD in 09/2015, who now represents with c omplaints of chest pain consistent with angina. Given these findings, the patient has been referred and presented today in order to undergo left heart catheterization to assess for the possibility of significant obstructive coronary artery disease lending to symptoms of chest pain and subsequent ad sandi to the hospital. PROCEDURE: After informed consent was obtained, the patient was brought to [facility] cardiac catheterization lab where his right and left groins were prepped and draped in the usual sterile fashion. Lidocaine 2% was infiltrated into the right radial area in order to ac hieve adequate local anesthesia. Using modified Seldinger technique, the radial artery was cannulat ed and a 6-[place]oc[place] arterial sheath was placed. A 6-[place] JL3.5 catheter was used to cannulate the l eft main coronary ostium. With contrast injection, multiple views of the left coronary arterial sys tem were obtained. The JL3.5 was removed over a guidewire and a JR4 was used to cannulate the right coronary arterial ostium. With contrast injection, multiple views of the right coronary arterial s ystem obtained. The JR4 was then used to additionally cross the aortic valve and measure patient's left ventricular end-diastolic pressure, then pulled back across the aortic valve to assess for sign ificant gradient, which there was not and removed. At this time, given the finding of significant r ecurrent obstructive lesion, we moved directly into an interventional procedure. The patient was gi gerard an Angiomax bolus continuous infusion. It should be noted that the patient had received a radia l cocktail at the onset of procedure with units of heparin, 2.5 mg of verapamil and 200 mcg of nitroglycerin. Subsequently, at this time, the patient's left main was cannulated with a XBLAD3 gu elaine and at 0.014 Balance middleweight guidewire was passed distal to the lesion in the LAD. The les ion was treated with initially 3.0 x 12 mm noncompliant up to 22 atmospheres x2. This was removed a nd a 3.5 x 16 mm noncompliant was further used to post-dilate the stent up to 22 atmospheres x2. Th e balloons were removed. Followup angiogram was obtained, now revealing significantly improved lum inal diameter, excellent flow and no signs of complication including perforation or dissection. Sub sequently, at this time, the interventional guide and guidewire were removed, and attention was now turned to the right coronary artery. It had an area of in-stent restenosis in the mid portion. Sub sequently, a JR guide was used to cannulate the right coronary arterial ostium. A 0.014 Balance Mid dleweight guidewire was passed distal to the lesion and the lesion was ballooned with a 3.0 x 12 mm noncompliant balloon throughout the length of the area of in-stent restenosis up to approximately 20 to 22 atmospheres multiple times. The balloon was removed. Followup angiogram was obtained reveal ing excellent result for just a balloon angioplasty, with significantly increased luminal diameter a nd no signs of complication including perforation or dissection. Subsequently, at this time, the in terventional guide and guidewire were removed. This completed the procedure. There were no noted c omplications. FINDINGS: Coronary angiography: Left main 4 mm with an eccentric-appearing hazy most probable 30% distal left main stenosis. The circumflex proximally is a 3 mm vessel and it has a widely patent stent in this section. The circumflex at the AV groove is free of any significant focal stenoses. There is a si zable obtuse marginal that branches midway down that is stented throughout its proximal portion, has in-stent restenosis up to approximately 30% in this vessel. The LAD proximally is a 3 mm vessel an d has a long stented zone from ostium to mid with an area of in-stent restenosis in the midportion u p to approximately 70% and then just at the distal end of the stented zone, patient has area of sten osis up to approximately 40% after the stented zone and an area of the vessel where it becomes a sub -2 mm portion of the vessel. The right coronary artery proximally is a 3 mm vessel, has a long sten freddie zone primarily from proximal to distal with the patient just at the midportion at its bend havin g in-stent restenosis up to approximately 70% and the rest of the stented zone was widely patent wit h minimal in-stent restenosis up to approximately at most 30%. Measurement of left ventricular end-diastolic pressure of 11 to 12. PTCA within the LAD: Prior to PTCA in LAD, the patient had in-stent restenosis up to approximately 70%. Post-PTCA, the patient had residual in-stent restenosis more likely a bend with heavy calcifie d portion outside of the stent up to approximately 30%. PTCA within the right coronary artery: Prior to PTCA in right coronary artery, the patient had an i n-stent restenosis section up to approximately 70% to 80%. Post-PTCA, the patient had in-stent rest enosis in that section up to approximately 20% to 30%. TOTAL FLUOROSCOPY TIME: 21 minutes. TOTAL CONTRAST: 120 mL. IMPRESSION: 1. Multivessel obstructive coronary artery disease involving in-stent restenotic sections in the pa tient's mid right coronary artery in the patient's mid left anterior descending, status post success ful balloon angioplasty with noncompliant balloons to mid right coronary artery in-stent restenosis and to mid left anterior descending in-stent restenotic section. 2. Low normal left heart filling pressures. 3. No significant aortic stenosis by gradient. RECOMMENDATIONS: In light of procedure and findings at this time would: 1. Maximize medical management. 2. Aggressive risk factor reduction. 3. The patient will be readmitted to the floor for post-catheterization observation and probably to the ICU with close followup and continued management of his presenting symptoms. Dictated By: CHAN BOWDEN/HILDA Conf#: [id number] DID#: [id number] CC: YELENA CABRAL MD;*EndCC*
[2016-06-18] MEDS: FISH OIL 1,000 MG CAP PO SCH (08:33)
[2016-06-18] MEDS: BENAZEPRIL 10 MG TAB PO SCH (08:33)
[2016-06-18] MEDS: CHOLECALCIFEROL 1,000 UNIT TAB PO SCH (08:34)
[2016-06-18] MEDS: ASPIRIN (EC) 81 MG TAB PO SCH (08:34)
[2016-06-18] MEDS: AMLODIPINE 2.5 MG TAB PO SCH (08:35)
[2016-06-18] MEDS: PROPYLTHIOURACIL 50 MG TAB PO SCH (08:35)
[2016-06-18] MEDS: ISOSORBIDE MONONITRATE(SR)60 MG TAB PO SCH (08:35)
[2016-06-18] MEDS: RANITIDINE 150 MG TAB PO SCH (08:35)
[2016-06-18] MEDS: CLOPIDOGREL 75 MG TAB PO SCH (08:35)
[2016-06-18] MEDS: RANOLAZINE (SR) 500 MG TAB PO SCH (08:36)
[2016-06-18] MEDS: PYRIDOXINE 50 MG TAB PO SCH (08:36)
--- NOTE | 2016-06-18 10:44 | CONS ---
Date/Time of Note Date/Time of Note DATE: 06/18/16 TIME: 10:42 Assessment/Plan Assessment/Plan Chief Complaint/Hosp Course IMPRESSION: 1. Angina, recurrent with a history of multiple prior PTCA and stent placement procedures.-negative troponin x 3 but ongoing chest pain. Now POD#1 s/p PTCA alone to in-stent restenosis in mid LAD and in-stent restenosis in mid RCA-no recurrent chest pain 2. History of percutaneous transluminal coronary angioplasty and stent placement, most recently in 09/2015 to circumflex. 3. History of cardiomyopathy, decreased left ventricular ejection fraction last approximately 35% to 40%. 4. Abnormal electrocardiogram, assess for acute coronary syndrome. 5. Hypertension, reasonable control. 6. Dyslipidemia.-LDL 93 HDL 53 7. History of remote tobacco intake. Recc: -Tele -Continue current asa/Plavix -Continue curent BB/ACEI/oral nitrates -Continue statin/ranexa -D/C planning with outpatient f/u 2 weeks. Problems: Consultation Date/Type/Reason Admit Date/Time Jun 17, 2016 at 13:55 Initial Consult Date 06/16/16 Type of Consultation: Cardiology Reason for Consultation angina Referring Provider: YELENA CABRAL MD Exam/Review of Systems Vital Signs Vitals Vital Signs Date Time Temp Pulse Resp B/P Pulse Ox O2 Delivery O2 Flow Rate FiO2 06/18/16 10:00 64 19 120/75 97 Room Air 06/18/16 08:00 98.2 06/15/16 21:54 2.0 Intake and Output 06/17/16 06/17/16 06/18/16 15:00 23:00 07:00 Intake Total 390 ml 1135 ml 415 ml Output Total 580 ml 200 ml 500 ml Balance -190 ml 935 ml -85 ml Exam Review of Systems: CONSTITUTIONAL: No fevers, chills. PULMONARY: No sob CARDIOVASCULAR: No chest pain/palpitations GASTROINTESTINAL: No nausea/vomiting. GENITOURINARY: No hematuria/dysuria. MUSCULOSKELETAL: No myagias/arthalgias. PSYCHIATRIC: The patient denies depression. NEUROLOGIC: No weakness Constitutional: alert, oriented Psych: no complaints Head: normocephalic ENMT: mucosa pink and moist Neck: jvd, supple Respiratory: diminished breath sounds Cardiovascular: regular rate and rhythm Gastrointestinal: non-tender, soft Musculoskeletal: muscle tone (normal) Extremities: edema (none) Neurological: other (Nom focal deficits) Results Result Diagram: 06/18/16 0420 06/18/16 0420 Results 24 hrs Laboratory Tests Test 06/18/16 04:20 White Blood Count 8.7 # Red Blood Count 4.50 L Hemoglobin 13.4 L Hematocrit 41.4 L Mean Corpuscular Volume 92.0 Mean Corpuscular Hemoglobin 29.8 Mean Corpuscular Hemoglobin Concent 32.4 Red Cell Distribution Width 13.2 Platelet Count 167 Mean Platelet Volume 9.8 Neutrophils % 51.7 Lymphocytes % 35.7 Monocytes % 9.6 Eosinophils % 2.4 Basophils % 0.3 Nucleated Red Blood Cells % 0.0 Neutrophils # 4.5 Lymphocytes # 3.1 H Monocytes # 0.8 Eosinophils # 0.2 Basophils # 0.0 Nucleated Red Blood Cells # 0.0 Sodium Level 142 Potassium Level 4.8 Chloride Level 108 Carbon Dioxide Level 24 Anion Gap 15 Blood Urea Nitrogen 12 Creatinine 0.98 Glucose Level 90 Calcium Level 8.9 Phosphorus Level 4.0 Magnesium Level 1.9 Cholesterol Level 159 Medications Medications Current Medications Amlodipine Besylate (Norvasc) 2.5 mg DAILY PO Last administered on 06/18/16 08 :35; Admin Dose 2.5 MG; Start 06/16/16 at 09:00 Aspirin (Halfprin) 81 mg DAILY PO Last administered on 06/18/16 08:34; Admin Dose 81 MG; Start 06/16/16 at 09:00 Benazepril HCl (Lotensin) 10 mg BID PO Last administered on 06/18/16 08:33; Admin Dose 10 MG; Start 06/16/16 at 09:00 Carvedilol (Coreg) 6.25 mg BID PO Last administered on 06/18/16 08:34; Admin Dose 6.25 MG; Start 06/16/16 at 09:00 Cholecalciferol (Vitamin D) 5,000 unit DAILY PO Last administered on 06/18/16 08:34; Admin Dose 5,000 UNIT; Start 06/16/16 at 09:00 Clopidogrel Bisulfate (plaVIX) 75 mg DAILY PO Last administered on 06/18/16 08 :35; Admin Dose 75 MG; Start 06/16/16 at 09:00 Furosemide (Lasix) 20 mg DAILY@06 PO Last administered on 06/18/16 05:53; Admin Dose 20 MG; Start 06/16/16 at 06:00 Isosorbide Mononitrate (Imdur) 60 mg DAILY PO Last administered on 06/18/16 08 :35; Admin Dose 60 MG; Start 06/16/16 at 09:00 Montelukast Sodium (Singulair) 10 mg QHS PO Last administered on 06/17/16 20: 50; Admin Dose 10 MG; Start 06/16/16 at 21:00 Propylthiouracil (Ptu) 50 mg DAILY PO Last administered on 06/18/16 08:35; Admin Dose 50 MG; Start 06/16/16 at 09:00 Pyridoxine HCl (Vitamin B6) 50 mg DAILY PO Last administered on 06/18/16 08:36 ; Admin Dose 50 MG; Start 06/16/16 at 09:00 Ranitidine HCl (Zantac) 150 mg BID PO Last administered on 06/18/16 08:35; Admin Dose 150 MG; Start 06/16/16 at 09:00 Ranolazine (Ranexa) 1,000 mg Q12 PO Last administered on 06/18/16 08:36; Admin Dose 1,000 MG; Start 06/16/16 at 09:00 Tamsulosin HCl (Flomax) 0.4 mg HS PO Last administered on 06/16/16 20:45; Admin Dose 0.4 MG; Start 06/16/16 at 21:00 Fish Oil (Fish Oil) 1,000 mg DAILY PO Last administered on 06/18/16 08:33; Admin Dose 1,000 MG; Start 06/16/16 at 09:00 Atorvastatin Calcium (Lipitor) 80 mg DAILY@21 PO Last administered on 20:49; Admin Dose 80 MG; Start 06/16/16 at 21:00 Nitroglycerin (Nitroglycerin (Sl Tab) 0.4 Mg) 1 tab Q5M PRN SL ANGINA; Start at 23:00 Morphine Sulfate (morphine) 3 mg Q4H PRN IM PAIN; Start 06/15/16 at 23:00 Ondansetron HCl (Zofran Inj) 4 mg Q6H PRN IV NAUSEA AND/OR VOMITING; Start 01/21 at 23:00 Acetaminophen (Tylenol Tab) 650 mg Q4H PRN PO NON-CARDIAC PAIN LEVEL 1-3; Start 06/17/16 at 10:30 Oxycodone/ Acetaminophen (Percocet (5/ 325)) 1 tab Q4H PRN PO REPORTED NON- CARDIAC PAIN 4-7 Last administered on 06/17/16t 12:21; Admin Dose 1 TAB; Start 06/17/16 at 10:30 Morphine Sulfate (morphine) 1 mg Q1H PRN IV PAIN NOT RELIEVED BY OTHERS; Start 06/17/16 at 10:30 CHAN OTTO Jun 18, 2016 10:43
--- NOTE | 2016-06-18 12:05 | PDOCDIS ---
Discharge Instructions DIAGNOSIS Discharge Diagnosis: cad CONDITION Patient Condition: Stable HOME CARE INSTRUCTIONS: Special Diet: cardiac diet ACTIVITY: Activity Restrictions: Slowly Increase Activity Do not Drive FOLLOW UP/APPOINTMENTS Appointments PCP 1wk Cardio 2wks AGUSTIN AVENDAÑO MD Jun 18, 2016 12:05
--- NOTE | 2016-06-18 12:28 | DS ---
DATE OF ADMISSION: 06/17/2016 DATE OF DISCHARGE: 06/18/2016 PRIMARY CARE PHYSICIAN: Unknown. CHILDREN'S TUTOR: Dr. Brooks DIAGNOSIS ON ADMISSION: Acute coronary syndrome. DIAGNOSES ON DISCHARGE: 1. Acute coronary syndrome. 2. Past tobacco. 3. Prediabetes. HOSPITAL COURSE: This is a 65-year-old gentleman with coronary artery disease, smoking and stents, admitted with angina-like symptoms. Ruled out for ACS by enzymes and EKG. He underwent cardiac cat heterization under Dr. Brooks. Please see operative report for complete details. Essentially he w as found to have in-stent restenotic sections in the mid RCA and the patient's mid LAD. Both requir ed successful balloon angioplasty. The patient was already maximized medically with active therapy for risk factor modification. Twenty-four hours later the patient left AMA. I am unable to give any instructions, as he is not he re. 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 He needs advanced care planning established, as he has a high risk of a repeat event. We will have to defer to primary once the patient establishes some sort of adherence. 1. Chronic ischemic cardiomyopathy, EF of 35 to 50. 2. Chronic nonadherence. 3. Chronic benign prostatic hypertrophy. 4. Chronic hypertension. 5. Chronic obstructive pulmonary disease. 6. Past tobacco abuse. LABORATORY: BMP unremarkable. Total cholesterol 159, triglycerides 188, LDL of 93, a little high. HDL of 53. Lipase of 66. TSH is 0.015. Free T4 of 1.2. LFTs okay. A1c of 5.4. INR 1. White no l count of 8. Hemoglobin and hematocrit of 13 and 41, platelets of 167. Vital signs stable. STOPPED MEDICATIONS: 1. Clonazepam. 2. Naproxen 3. Crestor, as he is already on Lipitor. CONTINUED MEDICATIONS: 1. Norvasc 2.5 daily. 2. Amoxicillin. 3. Augmentin to finish its course. 4. Aspirin 81. 5. Lipitor 80. 6. Benazepril 10 b.i.d. 7. Coreg 6.25 b.i.d. 8. Vitamin D3 5000 units daily. 9. Plavix 75 daily. 10. Lasix 20 mg every other day. 11. Isosorbide mononitrate 90 mg daily. 12. Singulair 10. 13. [place] 3 three times daily. 14. 50 mg daily. 15. B6 50 mg daily. 16. Ranitidine 150 b.i.d. 17. Ranexa 1000 mg b.i.d. 18. Flomax 0.4 daily. ALTERED MEDICATIONS: None. NEW MEDICATIONS: None. Dictated By: AGUSTIN LIMA/HILDA Conf#: [id number] DID#: [id number] CC: CHAN BROOKS MD;*End*
--- NOTE | 2016-06-18 20:56 | RADRPT ---
Vent Rate: 54 bpm RR Interval: 0 msec [place] Interval: 154 msec QRS Duration: 80 msec QT Interval: 448 msec QTC Interval: 424 msec P-R-T [place]: 65 - -5 - 30 degrees Sinus bradycardia Anteroseptal infarct , age undetermined Abnormal ECG Electronically Signed By: Richard Jaramillo [id number]
--- NOTE | 2016-06-18 20:58 | RADRPT ---
Vent Rate: 55 bpm RR Interval: 0 msec [place] Interval: 154 msec QRS Duration: 74 msec QT Interval: 434 msec QTC Interval: 415 msec P-R-T [place]: 62 - -36 - 40 degrees Sinus bradycardia Left axis deviation Anteroseptal infarct , age undetermined Abnormal ECG Electronically Signed By: Richard Jaramillo [id number]
--- NOTE | 2016-06-18 21:02 | RADRPT ---
Vent Rate: 58 bpm RR Interval: 0 msec [place] Interval: 146 msec QRS Duration: 80 msec QT Interval: 436 msec QTC Interval: 428 msec P-R-T [place]: 62 - -29 - 45 degrees Sinus bradycardia Anteroseptal infarct , age undetermined Abnormal ECG Electronically Signed By: Richard Jaramillo [id number]
[2016-06-22 13:46] LABS: TSH RECEPTOR ANTIBODY 36 (< OR = 16)
== END 2016-06-18 11:06 | disposition left against medical advice (07) | DRG 251 ==
LOC: E/R 18:44 → MS4 20:32 → ICU 06-17 10:34 → OBSVTOIN 06-17 13:55
PROVIDERS: ADMIT Internal Medicine; ATTEND Internal Medicine
PROC: 02713ZZ Dilation of Coronary Artery, Two Arteries, Percutaneous Approach (ICD-10-PCS; principal; 2016-06-16)
PROC: 4A023N7 Measurement of Cardiac Sampling and Pressure, Left Heart, Percutaneous Approach (ICD-10-PCS; 2016-06-16)
PROC: B2011ZZ Plain Radiography of Multiple Coronary Arteries using Low Osmolar Contrast (ICD-10-PCS; 2016-06-16)
DX: T82.855A Stenosis of coronary artery stent, initial encounter (principal); J44.9 Chronic obstructive pulmonary disease, unspecified; I10 Essential (primary) hypertension; I25.119 Atherosclerotic heart disease of native coronary artery with unspecified angina pectoris; E78.5 Hyperlipidemia, unspecified; Z95.5 Presence of coronary angioplasty implant and graft; D64.9 Anemia, unspecified; Z87.891 Personal history of nicotine dependence; N40.0 Benign prostatic hyperplasia without lower urinary tract symptoms; I25.2 Old myocardial infarction
CPT/HCPCS: 36415; 71010; 80048; 80053; 80061; 82465; 82550; 82553; 83036; 83690; 83735; 84100; 84235; 84439; 84443; 84484; 85025; 85610; 85730; 87081; 92920; 93005; 93458; 99217; G0378; C1725; C1769; C1887; J0583; J1644; J2250; J2270; J2405; J3010; J7030; Q9967

== ENCOUNTER 2016-11-27 19:09 | Inpatient (IN) | payer MEDICARE, OTHER ==
[~2016-11-27] VITALS: Ht 160 cm; Wt 83.5 kg
[~2016-11-27 19:09] MED LIST changes: +AMLO2.5T2 PO; +ASPI-535 PO; -CARV3.12 PO; +CARV6.25 PO; +CHOL500010 PO; -CLON0.5T4 PO; +CLOP75TA27 PO; +LAS20 PO; +MONT10TA21 PO; -NAPR-260 PO; +PROP50TA2 PO; +PYRI50TA80 PO; +RANO10002 PO; +TAMS0.4C2 PO
[2016-11-27] MEDS ORDERED: NITROGLYCERIN 50 MG/D5W (PMX) 250 ML IV STA (19:27)
--- NOTE | 2016-11-27 19:30 | ERA ---
ER Documentation Chief Complaint Date/Time DATE: 11/27/16 TIME: 19:29 Chief Complaint PETER RA90 from home,chest pressure pain since 1830,rec'd aspirin & 1 nitro HPI 66-year-old male with history of hypertension, cardiac disease status post multiple PCI's most recently 06/17/2016, COPD and BPH presents to the ED by rescue ambulance for evaluation of chest pain. Patient admits to chronic chest pain for the last 2 weeks has been increasing in intensity and severity. This afternoon while sitting in a chair at unprovoked, severe, nonradiating, pressure -like substernal chest pain with shortness of breath, nausea but no vomiting and diaphoresis. Unrelieved by sublingual nitroglycerin and aspirin hence paramedics were called. Pain is improved from a 7 down to a 6 but still described as severe. Denies leg pain or swelling. No headache or visual changes. Denies leg pain or swelling. No abdominal pain or back pain. No URI symptoms or cough. No fevers or chills. ROS All systems reviewed and are negative except as per history of present illness. Medications Home Meds Active Scripts Amoxicillin/Potassium Clav (Amox-Clav 875-125 mg Tablet) 875-125 mg Tab, 1 TAB PO BID for 10 Days, #20 TAB Prov:MALAIKA JUAREZ PA-C 05/01/16 Reported Medications Furosemide (Lasix) 20 Mg Tab, 20 MG PO VERY OTHERDAY, TAB 06/15/16 Tamsulosin Hcl* (Tamsulosin Hcl*) 0.4 Mg Cap.er.24h, 0.4 MG PO HS, CAP 06/15/16 Propylthiouracil* (Propylthiouracil*) 50 Mg Tablet, 50 MG PO DAILY, TAB 06/15/16 Aspirin Ec (Aspir 81) 81 Mg Tablet.dr, 81 MG PO DAILY, #30 TAB 06/15/16 Amlodipine Besylate* (Norvasc*) 2.5 Mg Tablet, 2.5 MG PO DAILY, TAB 06/15/16 Carvedilol* (Coreg*) 6.25 Mg Tablet, 6.25 MG PO BID, #60 TAB 06/15/16 Benazepril Hcl* (Benazepril Hcl*) 10 Mg Tablet, 10 MG PO BID, #60 TAB 06/15/16 Ranitidine Hcl (Ranitidine Hcl) 150 Mg Capsule, 150 MG PO BID, #60 CAP 06/15/16 Clopidogrel Bisulfate (Clopidogrel) 75 Mg Tablet, 75 MG PO DAILY, #30 TAB 06/15/16 Montelukast Sodium* (Singulair*) 10 Mg Tablet, 10 MG PO QHS, #30 TAB 06/15/16 Cholecalciferol (Vitamin D3) 5,000 Unit Tablet, 5000 UNIT PO DAILY, TAB 06/15/16 Pyridoxine Hcl (Vitamin B6) 50 Mg Tab, 50 MG PO DAILY, TAB 06/15/16 Ranolazine* (Ranexa*) 1,000 Mg Tab.sr.12h, 1000 MG PO Q12, TAB 06/15/16 Pyridoxine Hcl* (Vitamin B-6*) 50 Mg Capsule, 100 MG PO DAILY 02/02/14 Furosemide* (Lasix*) 20 Mg Tablet, 20 MG PO Q48 PT TAKES LASIX 20 MG EVERY OTHER DAY. 02/02/14 Atorvastatin* (Atorvastatin*) 80 Mg Tablet, 80 MG PO DAILY 02/02/14 Montelukast Sodium* (Montelukast Sodium*) 10 Mg Tablet, 10 MG PO DAILY, TAB 0 Refills 07/19/13 [place]-3 Fatty Acids (Fish Oil) 500 Mg Capsule.dr, 1000 MG PO TID 07/19/13 Isosorbide Mononitrate* (Isosorbide Mononitrate*) 30 Mg Tab.er.24h, 90 MG PO DAILY, TAB 07/19/13 Ranolazine* (Ranexa*) 500 Mg Tabsr, 1000 MG PO BID PT TAKES 2 TABS BID 03/22/12 Aspirin (Aspirin) 81 Mg Tablet, 81 MG PO DAILY, 0 Refills 03/22/12 Ranitidine Hcl (Ranitidine Hcl) 150 Mg Capsule, 150 MG PO BID 03/22/12 Allergies Allergies: Coded Allergies: No Known Drug Allergies (Verified Allergy, Unknown, 06/18/16) PMhx/Soc Reviewed in chart. As per HPI. History of Surgery: Yes ([facility] LAST SEPTEMBER 2015) Anesthesia Reaction: No Hx Neurological Disorder: No Hx Respiratory Disorders: No Hx Cardiac Disorders: Yes (5 HEART ATTACKS CAD, ,HTN) Hx Psychiatric Problems: No Hx Miscellaneous Medical Probl: No Hx Alcohol Use: Yes (OCCASSIONALLY) Hx Substance Use: No Hx Tobacco Use: No (QUIT SMOKING 5YRS AGO) Smoking Status: Former smoker FmHx Reviewed in chart. As per HPI. Physical Exam Vitals Vital Signs Date Time Temp Pulse Resp B/P Pulse Ox O2 Delivery O2 Flow Rate FiO2 11/27/16 21:45 58 19 124/79 99 Nasal Cannula 2.0 11/27/16 21:35 62 19 109/90 99 Nasal Cannula 2.0 11/27/16 21:25 60 16 126/70 99 Nasal Cannula 2.0 11/27/16 21:20 60 16 129/84 99 Nasal Cannula 2.0 11/27/16 21:15 60 16 121/71 99 Nasal Cannula 2.0 11/27/16 21:10 60 16 121/70 99 Nasal Cannula 2.0 11/27/16 21:05 59 16 115/69 99 Nasal Cannula 2.0 11/27/16 21:00 60 17 121/71 99 Nasal Cannula 2.0 11/27/16 20:55 60 14 120/65 99 Nasal Cannula 2.0 11/27/16 20:45 68 17 122/76 99 Nasal Cannula 2.0 11/27/16 20:31 62 17 118/65 99 Nasal Cannula 2.0 11/27/16 20:12 66 18 133/75 98 Room Air 2.0 Nasal Cannula 11/27/16 19:23 66 18 129/65 97 Room Air 11/27/16 19:11 98.0 70 18 156/77 97 Physical Exam Const: Alert, Moderate distress Head: Atraumatic Eyes: Normal Conjunctiva ENT: Normal External Ears, Nose and Mouth. Neck: Full range of motion. JVD. Resp: Clear to auscultation bilaterally Cardio: Regular rate and rhythm, no murmurs. No chest wall tenderness. Abd: Soft, non tender, pes, non distended. Normal bowel sounds Skin: No petechiae or rashes Back: No midline or flank tenderness Ext: No cyanosis, or edema Neur: Awake and alert Psych: Normal Mood and Affect Result Diagram: 11/29/1645111/29/16451 Results 24 hrs Laboratory Tests Test 11/27/16 19:35 White Blood Count 9.310^3/ul Red Blood Count 4.4810^6/ul Hemoglobin 13.5g/dl Hematocrit 40.5% Mean Corpuscular Volume 90.4fl Mean Corpuscular Hemoglobin 30.1pg Mean Corpuscular Hemoglobin Concent 33.3g/dl Red Cell Distribution Width 13.8% Platelet Count 31720^3/UL Mean Platelet Volume 9.9fl Neutrophils % 43.4% Lymphocytes % 46.2% Monocytes % 8.0% Eosinophils % 1.8% Basophils % 0.4% Nucleated Red Blood Cells % 0.0/100WBC Neutrophils # 4.010^3/ul Lymphocytes # 4.310^3/ul Monocytes # 0.710^3/ul Eosinophils # 0.210^3/ul Basophils # 0.010^3/ul Nucleated Red Blood Cells # 0.010^3/ul Sodium Level 142mmol/L Potassium Level 4.2mmol/L Chloride Level 107mmol/L Carbon Dioxide Level 24mmol/L Anion Gap 15 Blood Urea Nitrogen 20mg/dl Creatinine 1.34mg/dl Glucose Level 110mg/dl Calcium Level 8.9mg/dl Magnesium Level 1.8mg/dl Total Bilirubin 0.1mg/dl Direct Bilirubin 0.00mg/dl Indirect Bilirubin 0.1mg/dl Aspartate Amino Transf (AST/SGOT) 28IU/L Alanine Aminotransferase (ALT/SGPT) 50IU/L Alkaline Phosphatase 130IU/L Troponin I < 0.012ng/ml B-Type Natriuretic Peptide 213PG/ML Total Protein 7.2g/dl Albumin 4.2g/dl Globulin 3.00g/dl Albumin/Globulin Ratio 1.40 Current Medications Medications (Trade) Dose Ordered Sig/Lenora Route PRN Reason Start Time Stop Time Status Last Admin Dose Admin Nitroglycerin/ Dextrose (Nitroglycerin 50 Mg/D5W (Pmx)) 250 ml @ 6 mls/hr ONCE STAT IV 11/27/16 19:27 11/28/16 10:15 DC 11/27/16 19:42 Morphine Sulfate (morphine) 2 mg STK-MED ONCE .ROUTE 11/27/16 21:27 11/27/16 21:28 DC Ondansetron HCl (Zofran Inj) 4 mg STK-MED ONCE .ROUTE 11/27/16 21:31 11/27/16 21:32 DC Miscellaneous Medication (Gi Cocktail (2)) 40 ml STK-MED ONCE .ROUTE 11/27/16 21:36 11/27/16 21:37 DC Acetaminophen (Tylenol Tab) 325 mg STK-MED ONCE .ROUTE 11/27/16 22:03 11/27/16 22:04 DC EKG: Time: 19: 18. Sinus rhythm with occasional PVCs. Q T waves in leads III and aVF, V1 through V4. No acute ST segment elevation or depression. EP interpretation: Abnormal ECG. EKG: Time: 21:39. Sinus rhythm. Ventricular rate 58. No acute ST segment elevation depression. No ectopy. Unchanged from previous. EP interpretation: Abnormal ECG. EKG: Time: 22:22. During an episode of severe chest pain. Sinus rhythm. Ventricular rate 59. Q waves in leads V1 through V4. No acute ST segment elevation or depression. No ectopy. EP interpretation: Abnormal ECG. Unchanged. PROCEDURE: XR Chest. EP interpretation: Cardiomegaly, NAD, unchanged from CLINICAL INDICATION: Chest pain TECHNIQUE: AP Portable chest. COMPARISON: 10/26/2015 FINDINGS: There is mild cardiomegaly. Atherosclerotic calcifications are noted in the aorta. The lungs are clear. The osseous structures are unremarkable. IMPRESSION: No acute findings. RPTAT: HIKT .Shady Rosales MD, MD Date Time Electronically viewed and signed by .Shady Rosales MD, MD on 11/27/2016 20:45 .T/ Procedures/MDM DOCUMENTS REVIEWED: ED nurse, prior ED, prior records MEDICAL DECISION MAKIN-year-old male with history of hypertension, cardiac disease status post multiple PCI's most recently 06/17/2016, COPD and BPH presents to the ED by rescue ambulance for evaluation of chest pain. Presentation consistent with ACS and unstable angina. Ongoing chest pain despite IV nitro but no acute ischemic EKG changes or elevated troponin. No pneumonia, pneumothorax or CHF. No signs or pumonary embolis or aortic dissection. Admit to ICU for urgent cardiology consultation, further valuation and management. Counseled patient and family regarding diagnosis, diagnostic results and plan for admission. CRITICAL CARE TIME: Due to the high probability of sudden clinically significant respiratory, hemodynamic and cardiovascular cardiovascular deterioration, this patient with chest pain and ACS required multiple, frequent reevaluations of vital signs and response to therapy. Additional critical care time was spent in interpretation of relevant clinical data including labs, seriel EKG's imaging studies, obtaining supplemental history from EMS and family , extensive review of medical records and arranging for admission and ongoing care with Dr Woody. TOTAL CRITICAL CARE TIME: 35 minutes not including other separately reportable procedures. CALLS/CONSULTS: Time 21:00, Dr. Woody. PATIENT CARE TRANSITIONED: Time: 21:00, Dr. Woody. Departure Diagnosis: Primary Impression: Chest pain with high risk for cardiac etiology Additional Impressions: Unstable angina Acute coronary syndrome S/P coronary artery stent placement Hypertension Qualified Code: I10 - Essential hypertension Condition: Critical FERMIN SANDS MD Nov 27, 2016 19:30 11/28/16 09:00 Nitroglycerin/ Dextrose (Nitroglycerin 50 Mg/D5W (Pmx)) 250 ml @ 0 mls/hr TITRATE IV 11/27/16 23:30 EKG: Time: 19: 18. Sinus rhythm with occasional PVCs. Q T waves in leads III and aVF, V1 through V4. No acute ST segment elevation or depression. EP interpretation: Abnormal ECG. EKG: Time: 21:39. Sinus rhythm. Ventricular rate 58. No acute ST segment elevation depression. No ectopy. Unchanged from previous. EP interpretation: Abnormal ECG. EKG: Time: 22:22. During an episode of severe chest pain. Sinus rhythm. Ventricular rate 59. Q waves in leads V1 through V4. No acute ST segment elevation or depression. No ectopy. EP interpretation: Abnormal ECG. Unchanged. PROCEDURE: XR Chest. CLINICAL INDICATION: Chest pain TECHNIQUE: AP Portable chest. COMPARISON: 10/26/2015 FINDINGS: There is mild cardiomegaly. Atherosclerotic calcifications are noted in the aorta. The lungs are clear. The osseous structures are unremarkable. IMPRESSION: No acute findings. RPTAT: HIKT .Shady Rosales MD, MD Date Time Electronically viewed and signed by .Shady Rosales MD, MD on 11/27/2016 20:45 .T/ Procedures/MDM DOCUMENTS REVIEWED: ED nurse, prior ED, prior records PROCEDURES: [] ED COURSE: [] REEXAMINATION/REEVALUATION: Time:[] MEDICAL DECISION MAKIN-year-old male with history of hypertension, cardiac disease status post multiple PCI's most recently 06/17/2016, COPD and BPH presents to the ED by rescue ambulance for evaluation of chest pain. Counseled [patient and family] regarding diagnosis, diagnostic results and plan for admission. CALLS/CONSULTS: Time[], [], Recommends []. PATIENT CARE TRANSITIONED: Time: []Dr. []. Departure Diagnosis: Primary Impression: Chest pain with high risk for cardiac etiology Condition: FERMIN Waggoner MD Nov 27, 2016 19:30
[2016-11-27 19:49] LABS: BASOPHILS % 0.4 % (0.0-2.0); EOSINOPHILS # 0.2 10^3/ul (0.0-0.5); EOSINOPHILS % 1.8 % (0.0-7.0); HEMATOCRIT 40.5 % (42.0-52.0); HEMOGLOBIN 13.5 g/dl (14.0-18.0); LYMPHOCYTES # 4.3 10^3/ul (0.8-2.9); LYMPHOCYTES % 46.2 % (15.0-51.0); MEAN CORPUSCULAR HEMOGLOBIN 30.1 pg (29.0-33.0); MEAN CORPUSCULAR HGB CONC 33.3 g/dl (32.0-37.0); MEAN CORPUSCULAR VOLUME 90.4 fl (82.0-101.0); MEAN PLATELET VOLUME 9.9 fl (7.4-10.4); MONOCYTE # 0.7 10^3/ul (0.3-0.9); NEUTROPHILS % 43.4 % (39.0-77.0); PLATELET COUNT 197 10^3/UL (140-415); RED BLOOD COUNT 4.48 10^6/ul (4.70-6.10); RED CELL DISTRIBUTION WIDTH 13.8 % (11.5-14.5); WHITE BLOOD COUNT 9.3 10^3/ul (4.8-10.8)
[2016-11-27 20:12] LABS: ALANINE AMINOTRANSFERASE 50 IU/L (13-69); ALBUMIN 4.2 g/dl (3.3-4.9); ALKALINE PHOSPHATASE 130 IU/L (42-121); ANION GAP 15 (8-16); ASPARTATE AMINO TRANSFERASE 28 IU/L (15-46); BILIRUBIN,INDIRECT 0.1 mg/dl (0-1.1); BILIRUBIN,TOTAL 0.1 mg/dl (0.2-1.3); BLOOD UREA NITROGEN 20 mg/dl (7-20); CALCIUM 8.9 mg/dl (8.4-10.2); CARBON DIOXIDE 24 mmol/L (21-31); CHLORIDE 107 mmol/L (97-110); CREATININE 1.34 mg/dl (0.61-1.24); GLUCOSE 110 mg/dl (70-220); MAGNESIUM 1.8 mg/dl (1.7-2.5); POTASSIUM 4.2 mmol/L (3.5-5.1); SODIUM 142 mmol/L (135-144); TOTAL PROTEIN 7.2 g/dl (6.1-8.1)
[2016-11-27 20:24] LABS: B-TYPE NATRIURETIC PEPTIDE 213 PG/ML (0-125)
[2016-11-27 20:28] LABS: TROPONIN-I < 0.012 ng/ml (0.00-0.12)
--- NOTE | 2016-11-27 20:45 | RADRPT ---
PROCEDURE: XR Chest. CLINICAL INDICATION: Chest pain TECHNIQUE: AP Portable chest. COMPARISON: 10/26/2015 FINDINGS: There is mild cardiomegaly. Atherosclerotic calcifications are noted in the aorta. The lungs are cl ear. The osseous structures are unremarkable. IMPRESSION: No acute findings. RPTAT: HIKT .Shady Rosales MD, MD Date Time Electronically viewed and signed by .Shady Rosales MD, MD on 11/27/2016 20:45 .T/
[2016-11-27] MEDS ORDERED: morphine 2 MG INJ ONE (21:27)
[2016-11-27] MEDS ORDERED: ONDANSETRON 4 MG INJ ONE (21:31)
[2016-11-27] MEDS: morphine 2 MG INJ IV PRN (21:34)
[2016-11-27] MEDS: ONDANSETRON 4 MG INJ IV PRN (21:34)
[2016-11-27] MEDS ORDERED: LIDOCAINE/MYLANTA 40 ML BTL ONE (21:36)
[2016-11-27] MEDS ORDERED: ACETAMINOPHEN 325 MG TAB ONE (22:03)
[2016-11-27] MEDS ORDERED: BISACODYL (EC) 5 MG TAB PO PRN (23:00)
[2016-11-27] MEDS ORDERED: DOCUSATE SODIUM 100 MG CAP PO PRN (23:00)
[2016-11-27] MEDS ORDERED: NACL 0.9% 3 ML SYG IV SCH (23:00)
[2016-11-27] MEDS ORDERED: ACETAMINOPHEN 650MG/20.3ML CUP PO PRN (23:30)
[2016-11-27] MEDS ORDERED: ONDANSETRON 4 MG INJ IV PRN (23:30)
[2016-11-27] MEDS ORDERED: NITROGLYCERIN 50 MG/D5W (PMX) 250 ML IV SCH (23:30)
[2016-11-27] MEDS: ACETAMINOPHEN 325 MG TAB PO PRN (23:32)
[2016-11-28] VITALS (88 sets, daily range): BP systolic 87–149; BP diastolic 51–91; PULSE 54–68; RESP 10–36; Ht 160 cm; Wt 83.5 kg
[2016-11-28 03:15] LABS: TROPONIN-I 0.016 ng/ml (0.00-0.12)
[2016-11-28 03:30] LABS: CK-MB 1.04 ng/ml (0.0-2.4)
[2016-11-28] MEDS ORDERED: PANTOPRAZOLE 40 MG INJ IV SCH (06:00)
[2016-11-28] MEDS: ONDANSETRON 4 MG INJ IV PRN (06:40)
[2016-11-28] MEDS: morphine 2 MG INJ IV PRN (06:41)
--- NOTE | 2016-11-28 06:52 | HP ---
Date/Time of Note Date/Time of Note DATE: 11/28/16 TIME: 06:40 Assessment/Plan VTE Prophylaxis VTE Prophylaxis Intervention: LMWH, SCD's Lines/Catheters IV Catheter Type (from Nrs): Peripheral IV Assessment/Plan Chief Complaint/Hosp Course This is a 66-year-old male being admitted to the ICU floor for: #1 chest pain: Concern for ACS. Patient has a significant cardiac history. He appeared in active discomfort during my examination. As he needed nitro drip titration he was admitted to the ICU. Will continue to trend cardiac enzymes, first set was negative. Will continue aspirin/Plavix/statin. Will hold off on beta-alexx and MICHAEL inhibitor at this time secondary to borderline hypotension with nitro drip. Will consult cardiology. 2. History of CAD, s/p multiple stent placement, including for in-stent restenosis. Continue Plavix/aspirin/statin. Will hold off on beta-alexx and MICHAEL at this time secondary to patient being on nitro drip for hypotension. 3. Hypertension: Hold medications at this time secondary to patient being on nitro drip and with his blood pressure being borderline hypotensive. 4. Dyslipidemia: Continue statin 5. BPH We will hold Flomax at this time and resume once more stable blood pressures are achieved. 6. Hyperthyroidism: cont PTU, will check a TSH #7 DVT and GI prophylaxis: Lovenox, acid alexx Further treatment strategy will be implemented as per the clinical course Problems: HPI/ROS Admit Date/Time Admit Date/Time Nov 27, 2016 at 22:34 Hx of Present Illness Chief complaint: Left-sided chest pain 66-year-old male with history of hypertension, cardiac disease status post multiple PCI's most recently 06/17/2016, COPD and BPH presents to the ED by rescue ambulance for evaluation of chest pain. Patient admits to chronic chest pain for the last 2 weeks has been increasing in intensity and severity. This afternoon while sitting in a chair at unprovoked, severe, nonradiating, pressure -like substernal chest pain with shortness of breath, nausea but no vomiting and diaphoresis. Unrelieved by sublingual nitroglycerin and aspirin hence paramedics were called. Pain is improved from a 7 down to a 6 but still described as severe. Denies leg pain or swelling. No headache or visual changes. Denies leg pain or swelling. No abdominal pain or back pain. No URI symptoms or cough. No fevers or chills. Upon my examination at the bedside patient continued to have chest pain while on nitro drip. Nitro drip required titration. He also received morphine, though patient states that he gets a odd feeling when he has morphine including nausea for which she was given Zofran. Allergies: NKDA Medications: See [place] Const: As per HPI Eyes : No pain discharge or redness or change in visual acuity ENT: No pain, sore throat, congestion, congestion, dysphagia or discharge Respiratory: No shortness of breath, cough, sputum, wheezing, or pleuritic pain Cardiovascular: As per HPI GI : no change in appetite, abdominal pain, nausea, vomiting, diarrhea, constipation, or change in the color his stool Genitourinary: No dysuria, hematuria, flank pain , discharge or CVA tenderness Musculoskeletal: No joint pain, back pain, neck pain, restricted range of motion in neck or joints Skin: No rash, bruising or hives Neuro: No headache, dizziness, syncope, seizure, focal weakness Endocrine: No polyuria, polydipsia, temperature intolerance Psych: No hallucination, depression, anxiety or suicidal ideation PMH/Family/Social Past Medical History Coronary artery disease, hypertension, hyperlipidemia, hypothyroidism, PR 5 Past Surgical History cardiac stent 13, appendectomy Past Surgical Hx: other Family History Significant Family History: heart disease Social History Alcohol Use: none Smoking Status: Former smoker (Quit 3 years ago, but had approximately a 30- pack-year history) Drug Use: none Exam/Review of Systems Vital Signs Vitals Vital Signs Date Time Temp Pulse Resp B/P Pulse Ox O2 Delivery O2 Flow Rate FiO2 11/28/16 04:15 58 14 101/67 96 11/28/16 03:00 98.0 11/28/16 02:00 Room Air 11/27/16 22:51 2.0 Intake and Output 11/27/16 11/27/16 11/28/16 15:00 23:00 07:00 Intake Total 52.5 ml Output Total 250 ml Balance -197.5 ml Exam Exam General: Patient is sitting in bed having active episodes of chest pain throughout my exam. Nitro and morphine being given during the examination HEENT: Atraumatic, normocephalic. The pupils are equal, round and reactive. Extraocular motor are intact Neck: Supple with full range of motion. No rigidity or meningismus Chest: Nontender Lungs: Clear to auscultation bilaterally no crackles rales or wheezing Heart: Normal S1-S2, Regular rhythm and rate. No murmur, S3, or S4 Abdomen: Soft , nontender, nondistended , bowel sounds are present. No guarding no rebound tenderness , No masses or organomegaly. No costovertebral temporal angle mass Extremities: Normal to inspection, no edema no cyanosis Neurologic: Normal mental status, speech normal, cranial nerves II through XII are intact, motor and sensory are intact, no focal weakness Additional Comments EKG: Time: 19: 18. Sinus rhythm with occasional PVCs. Q T waves in leads III and aVF, V1 through V4. No acute ST segment elevation or depression. EP interpretation: Abnormal EKG: Time: 21:39. Sinus rhythm. Ventricular rate 58. No acute ST segment elevation depression. No ectopy. Unchanged from previous. EP interpretation: Abnormal ECG. EKG: Time: 22:22. During an episode of severe chest pain. Sinus rhythm. Ventricular rate 59. Q waves in leads V1 through V4. No acute ST segment elevation or depression. No ectopy. EP interpretation: Abnormal ECG. Unchanged. As per ED physician documentation PROCEDURE: XR Chest. CLINICAL INDICATION: Chest pain TECHNIQUE: AP Portable chest. COMPARISON: 10/26/2015 FINDINGS: There is mild cardiomegaly. Atherosclerotic calcifications are noted in the aorta. The lungs are clear. The osseous structures are unremarkable. IMPRESSION: No acute findings. RPTAT: HIKT .Shady Rosales MD, MD Date Time Electronically viewed and signed by .Shady Rosales MD, on 11/27/2016 20:45 .T/ Labs Result Diagram: 11/27/16193411/27/161934 Medications Medications Current Medications Ondansetron HCl (Zofran Inj) 4 mg Q6H PRN IV NAUSEA AND/OR VOMITING Last administered on 11/27/16t 21:34; Admin Dose 4 MG; Start 11/27/16 at 23:00 Acetaminophen (Tylenol Tab) 650 mg Q6H PRN PO PAIN LEVEL 1-3 OR FEVER Last administered on 11/27/16 23:32; Admin Dose 650 MG; Start 11/27/16 at 23:00 Docusate Sodium (Colace) 100 mg Q12H PRN PO CONSTIPATION; Start 11/27/16 at 23: 00 Bisacodyl (Dulcolax) 5 mg DAILY PRN PO CONSTIPATION; Start 11/27/16 at 23:00 Famotidine (Pepcid) 20 mg Q12 PO ; Start 11/28/16 at 09:00 Enoxaparin Sodium (Lovenox) 40 mg DAILY SC ; Start 11/28/16 at 09:00 Ondansetron HCl (Zofran Inj) 4 mg Q6H PRN IV NAUSEA AND/OR VOMITING; Start at 23:30 Acetaminophen (Tylenol Liquid) 650 mg Q6H PRN PO PAIN LEVEL 1-3 OR FEVER; Start 11/27/16 at 23:30 Morphine Sulfate (morphine) 2 mg Q4H PRN IV PAIN LEVEL 7-10 Last administered on 11/27/16 21:34; Admin Dose 2 MG; Start 11/27/16 at 23:30 Pantoprazole (Protonix Iv) 40 mg DAILY@06 IV Last administered on 11/28/16 06: 31; Admin Dose 40 MG; Start 11/28/16 at 06:00 Enoxaparin Sodium 40 mg 40 mg DAILY SC ; Start 11/28/16 at 09:00 Nitroglycerin/ Dextrose (Nitroglycerin 50 Mg/D5W (Pmx)) 250 ml @ 0 mls/hr TITRATE IV ; Start 11/27/16 at 23:30 ALEX GRACIA Nov 28, 2016 06:52
[2016-11-28 07:37] LABS: BASOPHILS % 0.4 % (0.0-2.0); EOSINOPHILS # 0.1 10^3/ul (0.0-0.5); EOSINOPHILS % 1.6 % (0.0-7.0); HEMATOCRIT 38.3 % (42.0-52.0); HEMOGLOBIN 13.2 g/dl (14.0-18.0); LYMPHOCYTES # 2.8 10^3/ul (0.8-2.9); LYMPHOCYTES % 36.3 % (15.0-51.0); MEAN CORPUSCULAR HGB CONC 34.5 g/dl (32.0-37.0); MEAN CORPUSCULAR VOLUME 89.9 fl (82.0-101.0); MEAN PLATELET VOLUME 10.1 fl (7.4-10.4); MONOCYTE # 0.6 10^3/ul (0.3-0.9); MONOCYTES % 8.2 % (0.0-11.0); NEUTROPHILS % 53.2 % (39.0-77.0); PLATELET COUNT 181 10^3/UL (140-415); RED BLOOD COUNT 4.26 10^6/ul (4.70-6.10); RED CELL DISTRIBUTION WIDTH 13.7 % (11.5-14.5); WHITE BLOOD COUNT 7.6 10^3/ul (4.8-10.8)
[2016-11-28 08:05] LABS: ALBUMIN 3.7 g/dl (3.3-4.9); ALBUMIN/GLOBULIN RATIO 1.32; BILIRUBIN,INDIRECT 0.4 mg/dl (0-1.1); BILIRUBIN,TOTAL 0.4 mg/dl (0.2-1.3); CHOL/HDL RATIO 2.8 RATIO; CREATININE 0.99 mg/dl (0.61-1.24); MAGNESIUM 1.9 mg/dl (1.7-2.5); POTASSIUM 4.5 mmol/L (3.5-5.1); TOTAL PROTEIN 6.5 g/dl (6.1-8.1)
[2016-11-28 08:16] LABS: TROPONIN-I 0.013 ng/ml (0.00-0.12)
[2016-11-28 08:23] LABS: CK-MB 1.14 ng/ml (0.0-2.4)
[2016-11-28] MEDS ORDERED: METOPROLOL 5 MG INJ IV STA (08:54)
[2016-11-28] MEDS ORDERED: METOPROLOL 5 MG INJ ONE (08:58)
[2016-11-28] MEDS ORDERED: ENOXAPARIN 40 MG/0.4 ML SYG SC SCH (09:00)
[2016-11-28] MEDS: ASPIRIN 81 MG TAB PO SCH ×2 (09:00→09:04)
[2016-11-28] MEDS: PROPYLTHIOURACIL 50 MG TAB PO SCH ×2 (09:00→09:03)
[2016-11-28] MEDS: ATORVASTATIN 80 MG TAB PO SCH ×2 (09:00→09:04)
[2016-11-28] MEDS: FAMOTIDINE 20 MG TAB PO SCH ×2 (09:00→21:26)
[2016-11-28] MEDS: CLOPIDOGREL 75 MG TAB PO SCH ×2 (09:00→09:04)
[2016-11-28] MEDS: ACETAMINOPHEN 325 MG TAB PO PRN ×2 (09:03→10:22)
[2016-11-28] MEDS: ENOXAPARIN 40 MG/0.4 ML SYG SC SCH (09:15)
[2016-11-28] MEDS: NITROGLYCERIN 50 MG/D5W (PMX) 250 ML IV SCH (10:23)
[2016-11-28] MEDS: AMLODIPINE 5 MG TAB PO SCH (11:04)
[2016-11-28] MEDS: BENAZEPRIL 10 MG TAB PO SCH ×2 (11:05→21:27)
[2016-11-28 12:15] LABS: THYROID STIMULATING HORMONE 0.019 MIU/L (0.465-4.680)
--- NOTE | 2016-11-28 15:13 | PN ---
Date/Time of Note Date/Time of Note DATE: 11/28/16 TIME: 15:04 Assessment/Plan VTE Prophylaxis VTE Prophylaxis Intervention: SCD's Lines/Catheters IV Catheter Type (from Nrsg): Peripheral IV Urinary Cath still in place: No Assessment/Plan Assessment/Plan 1. Acute chest pain rule out ACS - Patient has a very extensive cardiac history with multiple stent placements and repeated PCI secondary to restenosed stents. Followed by Dr. Brooks - Placed on Nitro drip to help control pain and monitoring vitals in ICU setting - Troponins being trended and am EKG showed Bradycardia - Cardiology on board and appreciate consultation. Per Dr. Jaramillo, concerns for aortic dissection but at this time patient and family are refusing given need for anesthesia and concern that he may not awake. Patient is hemodynamically stable at this time - If pain worsens or concerns for dissection are present, will order CTA if hemodynamically stable. - Patient and family would like to wait for Dr. Brooks input - May be a component of acid reflux exacerbating pain as well. On Pepcid 2. History of CAD, s/p multiple stent placement, including for in-stent restenosis - Will continue medications 3. Hypertension - stable. continue monitoring 4. Dyslipidemia - Continue statin 5. BPH 6. Hyperthyroidism - continue PTU - TSH low, will check T3 and T4 levels >30 minutes of critical care time was spent with patient and family at bedside. All concerns addressed and questions answered. Subjective 24 Hr Interval Summary Free Text/Dictation Patient states pain is improving after Nitro drip increase despite having a headache. Pain is about 5/10 and concerned about being sedated for KHUSHBU. Daughter and at bedside trying to keep patient calm. Requesting stool softener as well Exam/Review of Systems Vital Signs Vitals Vital Signs Date Time Temp Pulse Resp B/P Pulse Ox O2 Delivery O2 Flow Rate FiO2 11/28/16 14:30 62 16 117/64 99 11/28/16 14:00 Room Air 11/28/16 12:00 98.1 11/27/16 22:51 2.0 Intake and Output 11/27/16 11/27/16 11/28/16 15:00 23:00 07:00 Intake Total 88.5 ml Output Total 450 ml Balance -361.5 ml Exam General: Very pleasant gentlemen in no acute distress currently. awake and alert. HEENT: Atraumatic, normocephalic. The pupils are equal, round and reactive. Extraocular motor are intact Neck: Supple with full range of motion. No rigidity or meningismus Chest: Nontender Lungs: Clear to auscultation bilaterally no crackles rales or wheezing Heart: Normal S1-S2, Regular rhythm and rate. No murmur, S3, or S4 Abdomen: Soft , nontender, nondistended , bowel sounds are present. No guarding no rebound tenderness , No masses or organomegaly. Extremities: Normal to inspection, no edema no cyanosis Neurologic: Normal mental status, speech normal, cranial nerves II through XII are intact, motor and sensory are intact, no focal weakness Results Result Diagram: 11/28/1671111/28/16711 Results 24 hrs Laboratory Tests Test 11/27/16 19:35 11/28/16 02:31 11/28/16 07:12 White Blood Count 9.3 7.6 Red Blood Count 4.48 L 4.26 L Hemoglobin 13.5 L 13.2 L Hematocrit 40.5 L 38.3 L Mean Corpuscular Volume 90.4 89.9 Mean Corpuscular Hemoglobin 30.1 31.0 Mean Corpuscular Hemoglobin Concent 33.3 34.5 Red Cell Distribution Width 13.8 13.7 Platelet Count 197 181 Mean Platelet Volume 9.9 10.1 Neutrophils % 43.4 53.2 Lymphocytes % 46.2 36.3 Monocytes % 8.0 8.2 Eosinophils % 1.8 1.6 Basophils % 0.4 0.4 Nucleated Red Blood Cells % 0.0 0.0 Neutrophils # 4.0 4.0 Lymphocytes # 4.3 H 2.8 Monocytes # 0.7 0.6 Eosinophils # 0.2 0.1 Basophils # 0.0 0.0 Nucleated Red Blood Cells # 0.0 0.0 Sodium Level 142 139 Potassium Level 4.2 4.5 Chloride Level 107 108 Carbon Dioxide Level 24 25 Anion Gap 15 11 Blood Urea Nitrogen 20 19 Creatinine 1.34 H 0.99 Glucose Level 110 88 Calcium Level 8.9 9.0 Magnesium Level 1.8 1.9 Total Bilirubin 0.1 L 0.4 Direct Bilirubin 0.00 0.00 Indirect Bilirubin 0.1 0.4 Aspartate Amino Transf (AST/SGOT) 28 26 Alanine Aminotransferase (ALT/SGPT) 50 52 Alkaline Phosphatase 130 H 117 Troponin I < 0.012 0.016 0.013 B-Type Natriuretic Peptide 213 H Total Protein 7.2 6.5 Albumin 4.2 3.7 Globulin 3.00 2.80 Albumin/Globulin Ratio 1.40 1.32 Creatine Kinase 89 72 Creatine Kinase Index 1.2 1.6 Creatinine Kinase MB (Mass) 1.04 1.14 Hemoglobin A1c 5.5 Triglycerides Level 183 H Cholesterol Level 142 LDL Cholesterol, Calculated 56 HDL Cholesterol 49 Cholesterol/HDL Ratio 2.8 Thyroid Stimulating Hormone (TSH) 0.019 L Medications Medications Current Medications Acetaminophen (Tylenol Tab) 650 mg Q6H PRN PO PAIN LEVEL 1-3 OR FEVER Last administered on 11/28/16 10:22; Admin Dose 650 MG; Start 11/27/16 at 23:00 Docusate Sodium (Colace) 100 mg Q12H PRN PO CONSTIPATION; Start 11/27/16 at 23: 00 Bisacodyl (Dulcolax) 5 mg DAILY PRN PO CONSTIPATION; Start 11/27/16 at 23:00 Famotidine (Pepcid) 20 mg Q12 PO ; Start 11/28/16 at 09:00 Enoxaparin Sodium (Lovenox) 40 mg DAILY SC Last administered on 11/28/16 09:15 ; Admin Dose 40 MG; Start 11/28/16 at 09:00 Ondansetron HCl (Zofran Inj) 4 mg Q6H PRN IV NAUSEA AND/OR VOMITING; Start at 23:30 Acetaminophen (Tylenol Liquid) 650 mg Q6H PRN PO PAIN LEVEL 1-3 OR FEVER; Start 11/27/16 at 23:30 Morphine Sulfate (morphine) 2 mg Q4H PRN IV PAIN LEVEL 7-10 Last administered on 11/28/16 06:41; Admin Dose 2 MG; Start 11/27/16 at 23:30 Aspirin (Aspirin) 81 mg DAILY PO Last administered on 11/28/16 09:00; Admin Dose 81 MG; Start 11/28/16 at 09:00 Atorvastatin Calcium (Lipitor) 80 mg DAILY PO Last administered on 11/28/16 09 :00; Admin Dose 80 MG; Start 11/28/16 at 09:00 Clopidogrel Bisulfate (plaVIX) 75 mg DAILY PO Last administered on 11/28/16 09 :00; Admin Dose 75 MG; Start 11/28/16 at 09:00 Propylthiouracil 50 mg 50 mg DAILY PO Last administered on 11/28/16 09:00; Admin Dose 50 MG; Start 11/28/16 at 09:00 Nitroglycerin/ Dextrose (Nitroglycerin 50 Mg/D5W (Pmx)) 250 ml @ 1.5 mls/hr TITRATE IV Last administered on 11/28/16 10:23; Admin Dose 15 MLS/HR; Start at 10:20 Amlodipine Besylate (Norvasc) 5 mg DAILY PO Last administered on 11/28/16 11: 04; Admin Dose 5 MG; Start 11/28/16 at 11:00 Benazepril HCl (Lotensin) 10 mg BID PO Last administered on 11/28/16 11:05; Admin Dose 10 MG; Start 11/28/16 at 11:00 Carvedilol (Coreg) 6.25 mg BID PO Last administered on 11/28/16 11:05; Admin Dose 6.25 MG; Start 11/28/16 at 11:00 JANE HUANG MD Nov 28, 2016 15:13
[2016-11-28] MEDS ORDERED: DOCUSATE SODIUM 100 MG CAP PO PRN (15:30)
--- NOTE | 2016-11-28 21:26 | CONS ---
Date/Time of Note Date/Time of Note DATE: 11/28/16 TIME: 20:47 Consultation Date/Type/Reason Admit Date/Time Nov 27, 2016 at 22:34 CONSULTATION (CARDIOLOGY) Date/Time of Note Date/Time of Note DATE: 11/28/16 TIME: 9:40 Assessment/Plan VTE Prophylaxis VTE Prophylaxis Intervention: LMWH, SCD's Lines/Catheters IV Catheter Type (from Nrs): Peripheral IV Assessment/Plan Chief Complaint/Hosp Course This is a 66-year-old male being admitted to the ICU floor for: 1. Severe, sustained chest pain: Concern for ACS. Patient has a significant cardiac history - heart attacks, multiple coronary artery stenting procedures. Over a period of 10 hours with severe, 9-10 sustained chest pain and repeated negative troponin samples and repeated EKG's with no acute changes I suspected the possibility of aortic dissection. 2. History of CAD, s/p multiple stent placement, including repeated in-stent restenosis. Continue Plavix/aspirin/statin. Will deliver continuous IV drip and repeated IV Lopressor (push) injections at this time patient with only borderline BP and heart rate. 3. Hypertension: hold home medications at this time secondary to patient being on nitro drip and with his blood pressure being borderline hypotensive. 4. Dyslipidemia: Continue statin 5. BPH We will hold Flomax at this time and resume once more stable blood pressures are achieved. 6. Hyperthyroidism: cont PTU, will check a TSH #7 DVT and GI prophylaxis: Lovenox, acid alexx Further treatment strategy will be implemented as per the clinical course Problems: HPI/ROS Admit Date/Time Admit Date/Time Nov 27, 2016 at 22:34 Hx of Present Illness Chief complaint: Left-sided chest pain 66-year-old male with history of hypertension, cardiac disease status post multiple PCI's most recently 06/17/2016, COPD and BPH presents to the ED by rescue ambulance for evaluation of chest pain. Patient admits to chronic chest pain for the last 2 weeks has been increasing in intensity and severity. This afternoon while sitting in a chair at unprovoked, severe, nonradiating, pressure -like substernal chest pain with shortness of breath, nausea but no vomiting and diaphoresis. Unrelieved by sublingual nitroglycerin and aspirin hence paramedics were called. Pain is improved from a 7 down to a 6 but still described as severe. Denies leg pain or swelling. No headache or visual changes. Denies leg pain or swelling. No abdominal pain or back pain. No URI symptoms or cough. No fevers or chills. Upon my examination at the bedside patient continued to have chest pain while on nitro drip. Nitro drip required titration. He also received morphine, though patient states that he gets a odd feeling when he has morphine including nausea for which she was given Zofran. Allergies: NKDA Medications: See [facility] Const: As per HPI Eyes : No pain discharge or redness or change in visual acuity ENT: No pain, sore throat, congestion, congestion, dysphagia or discharge Respiratory: No shortness of breath, cough, sputum, wheezing, or pleuritic pain Cardiovascular: As per HPI GI : no change in appetite, abdominal pain, nausea, vomiting, diarrhea, constipation, or change in the color his stool Genitourinary: No dysuria, hematuria, flank pain , discharge or CVA tenderness Musculoskeletal: No joint pain, back pain, neck pain, restricted range of motion in neck or joints Skin: No rash, bruising or hives Neuro: No headache, dizziness, syncope, seizure, focal weakness Endocrine: No polyuria, polydipsia, temperature intolerance Psych: No hallucination, depression, anxiety or suicidal ideation PMH/Family/Social Past Medical History Coronary artery disease, hypertension, hyperlipidemia, hypothyroidism, VT 5, obesity. Past Surgical History cardiac stent 13, appendectomy Past Surgical Hx: other Family History Significant Family History: heart disease Social History Alcohol Use: none Smoking Status: Former smoker (Quit 3 years ago, but had approximately a 30- pack-year history) Drug Use: none Exam/Review of Systems Vital Signs Vitals Vital Signs Date Time Temp Pulse Resp B/P Pulse Ox O2 Delivery O2 Flow Rate FiO2 11/28/16 04:15 58 14 101/67 96 11/28/16 03:00 98.0 11/28/16 02:00 Room Air 11/27/16 22:51 2.0 Intake and Output 11/27/16 11/27/16 11/28/16 15:00 23:00 07:00 Intake Total 52.5 ml Output Total 250 ml Balance -197.5 ml Exam Exam General: Patient is sitting in bed having active continuous chest pain throughout my exam. Nitro and morphine being given during the examination HEENT: Atraumatic, normocephalic. The pupils are equal, round and reactive. Extraocular motor are intact Neck: Supple with full range of motion. No rigidity or meningismus Chest: Nontender Lungs: Clear to auscultation bilaterally no crackles rales or wheezing Heart: Normal S1-S2, Regular rhythm and rate. No murmur, S3, or S4 Abdomen: Soft , nontender, nondistended , bowel sounds are present. No guarding no rebound tenderness , No masses or organomegaly. No costovertebral temporal angle mass Extremities: Normal to inspection, no edema no cyanosis Neurologic: Normal mental status, speech normal, cranial nerves II through XII are intact, motor and sensory are intact, no focal weakness Additional Comments EKG: Time: 19: 18. Sinus rhythm with occasional PVCs. Q T waves in leads III and aVF, V1 through V4. No acute ST segment elevation or depression. EP interpretation: Abnormal EKG: Time: 21:39. Sinus rhythm. Ventricular rate 58. No acute ST segment elevation depression. No ectopy. Unchanged from previous. EP interpretation: Abnormal ECG. EKG: Time: 22:22. During an episode of severe chest pain. Sinus rhythm. Ventricular rate 59. Q waves in leads V1 through V4. No acute ST segment elevation or depression. No ectopy. EP interpretation: Abnormal ECG. Unchanged. As per ED physician documentation PROCEDURE: XR Chest. CLINICAL INDICATION: Chest pain TECHNIQUE: AP Portable chest. COMPARISON: 10/26/2015 FINDINGS: There is mild cardiomegaly. Atherosclerotic calcifications are noted in the aorta. The lungs are clear. The osseous structures are unremarkable. IMPRESSION: No acute findings. Electronically viewed and signed by .Shady Rosales MD, MD on 11/27/2016 20:45 .T/ Labs Result Diagram: 11/27/16193411/27/161934 Medications Medications Current Medications Ondansetron HCl (Zofran Inj) 4 mg Q6H PRN IV NAUSEA AND/OR VOMITING Last administered on 11/27/16 21:34; Admin Dose 4 MG; Start 11/27/16 at 23:00 Acetaminophen (Tylenol Tab) 650 mg Q6H PRN PO PAIN LEVEL 1-3 OR FEVER Last administered on 11/27/16 23:32; Admin Dose 650 MG; Start 11/27/16 at 23:00 Docusate Sodium (Colace) 100 mg Q12H PRN PO CONSTIPATION; Start 11/27/16 at 23: 00 Bisacodyl (Dulcolax) 5 mg DAILY PRN PO CONSTIPATION; Start 11/27/16 at 23:00 Famotidine (Pepcid) 20 mg Q12 PO ; Start 11/28/16 at 09:00 Enoxaparin Sodium (Lovenox) 40 mg DAILY SC ; Start 11/28/16 at 09:00 Ondansetron HCl (Zofran Inj) 4 mg Q6H PRN IV NAUSEA AND/OR VOMITING; Start at 23:30 Acetaminophen (Tylenol Liquid) 650 mg Q6H PRN PO PAIN LEVEL 1-3 OR FEVER; Start 11/27/16 at 23:30 Morphine Sulfate (morphine) 2 mg Q4H PRN IV PAIN LEVEL 7-10 Last administered on 11/27/16 21:34; Admin Dose 2 MG; Start 11/27/16 at 23:30 Pantoprazole (Protonix Iv) 40 mg DAILY@06 IV Last administered on 11/28/16 06: 31; Admin Dose 40 MG; Start 11/28/16 at 06:00 Enoxaparin Sodium 40 mg 40 mg DAILY SC ; Start 11/28/16 at 09:00 KEITH JARAMILLO MD ADDENDUM: Please read Dr. Sharma's note entered after the H&P: In addition to refusing a KHUSHBU to rule out aortic dissection the patient hesitated to have a chest CT with contrast. I suspect the reason was unfamiliarity of the patient with me, whom he saw for the first time and he decided to wait for Dr. Brooks prior to consenting to any procedure. By then he had no chest pain. Dr. Sharma, who knew the patient, agreed with the patient and decided to eventually have the patient go to the CT if chest pain returns. At this time, 12 hours after my initial consultation and after being asymptomatic, with tight BP and heart rate control, he remains asymptomatic. Will watch closely overnight in ICU. Another portable chest x-ray will be ordered because of left lower lung crackles. Keith Jaramillo MD Past Surgical History Past Surgical Hx: other Social History Alcohol Use: none Smoking Status: Former smoker (Quit 3 years ago, but had approximately a 30- pack-year history) Drug Use: none Exam/Review of Systems Vital Signs Vitals Vital Signs Date Time Temp Pulse Resp B/P Pulse Ox O2 Delivery O2 Flow Rate FiO2 11/28/16 19:45 61 18 115/71 97 11/28/16 19:00 97.8 Room Air 11/27/16 22:51 2.0 Intake and Output 11/27/16 11/27/16 11/28/16 15:00 23:00 07:00 Intake Total 88.5 ml Output Total 450 ml Balance -361.5 ml Results Result Diagram: 11/28/16 0712 11/28/16 0712 Results 24 hrs Laboratory Tests Test 11/28/16 02:31 11/28/16 07:12 11/28/16 16:15 Creatine Kinase 89 72 Creatine Kinase Index 1.2 1.6 Creatinine Kinase MB (Mass) 1.04 1.14 Troponin I 0.016 0.013 White Blood Count 7.6 Red Blood Count 4.26 L Hemoglobin 13.2 L Hematocrit 38.3 L Mean Corpuscular Volume 89.9 Mean Corpuscular Hemoglobin 31.0 Mean Corpuscular Hemoglobin Concent 34.5 Red Cell Distribution Width 13.7 Platelet Count 181 Mean Platelet Volume 10.1 Neutrophils % 53.2 Lymphocytes % 36.3 Monocytes % 8.2 Eosinophils % 1.6 Basophils % 0.4 Nucleated Red Blood Cells % 0.0 Neutrophils # 4.0 Lymphocytes # 2.8 Monocytes # 0.6 Eosinophils # 0.1 Basophils # 0.0 Nucleated Red Blood Cells # 0.0 Sodium Level 139 Potassium Level 4.5 Chloride Level 108 Carbon Dioxide Level 25 Anion Gap 11 Blood Urea Nitrogen 19 Creatinine 0.99 Glucose Level 88 Hemoglobin A1c 5.5 Calcium Level 9.0 Magnesium Level 1.9 Total Bilirubin 0.4 Direct Bilirubin 0.00 Indirect Bilirubin 0.4 Aspartate Amino Transf (AST/SGOT) 26 Alanine Aminotransferase (ALT/SGPT) 52 Alkaline Phosphatase 117 Total Protein 6.5 Albumin 3.7 Globulin 2.80 Albumin/Globulin Ratio 1.32 Triglycerides Level 183 H Cholesterol Level 142 LDL Cholesterol, Calculated 56 HDL Cholesterol 49 Cholesterol/HDL Ratio 2.8 Thyroid Stimulating Hormone (TSH) 0.019 L Free Thyroxine 0.92 Free Triiodothyronine (T3) pg/mL 4.28 Medications Medications Current Medications Acetaminophen (Tylenol Tab) 650 mg Q6H PRN PO PAIN LEVEL 1-3 OR FEVER Last administered on 11/28/16 10:22; Admin Dose 650 MG; Start 11/27/16 at 23:00 Bisacodyl (Dulcolax) 5 mg DAILY PRN PO CONSTIPATION; Start 11/27/16 at 23:00 Famotidine (Pepcid) 20 mg Q12 PO ; Start 11/28/16 at 09:00 Enoxaparin Sodium (Lovenox) 40 mg DAILY SC Last administered on 11/28/16 09:15 ; Admin Dose 40 MG; Start 11/28/16 at 09:00 Ondansetron HCl (Zofran Inj) 4 mg Q6H PRN IV NAUSEA AND/OR VOMITING; Start at 23:30 Acetaminophen (Tylenol Liquid) 650 mg Q6H PRN PO PAIN LEVEL 1-3 OR FEVER; Start 11/27/16 at 23:30 Morphine Sulfate (morphine) 2 mg Q4H PRN IV PAIN LEVEL 7-10 Last administered on 11/28/16 06:41; Admin Dose 2 MG; Start 11/27/16 at 23:30 Aspirin (Aspirin) 81 mg DAILY PO Last administered on 11/28/16 09:00; Admin Dose 81 MG; Start 11/28/16 at 09:00 Atorvastatin Calcium (Lipitor) 80 mg DAILY PO Last administered on 11/28/16 09 :00; Admin Dose 80 MG; Start 11/28/16 at 09:00 Clopidogrel Bisulfate (plaVIX) 75 mg DAILY PO Last administered on 11/28/16 09 :00; Admin Dose 75 MG; Start 11/28/16 at 09:00 Propylthiouracil 50 mg 50 mg DAILY PO Last administered on 11/28/16 09:00; Admin Dose 50 MG; Start 11/28/16 at 09:00 Nitroglycerin/ Dextrose (Nitroglycerin 50 Mg/D5W (Pmx)) 250 ml @ 1.5 mls/hr TITRATE IV Last administered on 11/28/16 10:23; Admin Dose 15 MLS/HR; Start at 10:20 Amlodipine Besylate (Norvasc) 5 mg DAILY PO Last administered on 11/28/16 11: 04; Admin Dose 5 MG; Start 11/28/16 at 11:00 Benazepril HCl (Lotensin) 10 mg BID PO Last administered on 11/28/16 11:05; Admin Dose 10 MG; Start 11/28/16 at 11:00 Carvedilol (Coreg) 6.25 mg BID PO Last administered on 11/28/16 11:05; Admin Dose 6.25 MG; Start 11/28/16 at 11:00 Docusate Sodium (Colace) 100 mg BID PRN PO CONSTIPATION Last administered on 15:21; Admin Dose 100 MG; Start 11/28/16 at 15:30 EKITH JARAMILLO MD Nov 28, 2016 21:25
[2016-11-29] VITALS (55 sets, daily range): BP systolic 94–149; BP diastolic 52–93; PULSE 56–79; RESP 12–24
[2016-11-29] MEDS: NITROGLYCERIN 50 MG/D5W (PMX) 250 ML IV SCH (03:46)
[2016-11-29 05:25] LABS: BASOPHILS % 0.5 % (0.0-2.0); EOSINOPHILS # 0.1 10^3/ul (0.0-0.5); EOSINOPHILS % 1.8 % (0.0-7.0); HEMATOCRIT 39.8 % (42.0-52.0); HEMOGLOBIN 13.4 g/dl (14.0-18.0); LYMPHOCYTES # 2.7 10^3/ul (0.8-2.9); LYMPHOCYTES % 33.7 % (15.0-51.0); MEAN CORPUSCULAR HEMOGLOBIN 30.4 pg (29.0-33.0); MEAN CORPUSCULAR HGB CONC 33.7 g/dl (32.0-37.0); MEAN CORPUSCULAR VOLUME 90.2 fl (82.0-101.0); MEAN PLATELET VOLUME 9.9 fl (7.4-10.4); MONOCYTE # 0.6 10^3/ul (0.3-0.9); MONOCYTES % 7.8 % (0.0-11.0); NEUTROPHIL # 4.5 10^3/ul (1.6-7.5); NEUTROPHILS % 56.1 % (39.0-77.0); PLATELET COUNT 185 10^3/UL (140-415); RED BLOOD COUNT 4.41 10^6/ul (4.70-6.10); RED CELL DISTRIBUTION WIDTH 13.5 % (11.5-14.5)
[2016-11-29 06:08] LABS: ALBUMIN 3.9 g/dl (3.3-4.9); CALCIUM 9.3 mg/dl (8.4-10.2); CREATININE 1.09 mg/dl (0.61-1.24); MAGNESIUM 1.9 mg/dl (1.7-2.5); PHOSPHORUS 4.4 mg/dl (2.5-4.9); POTASSIUM 4.3 mmol/L (3.5-5.1)
--- NOTE | 2016-11-29 08:10 | RADRPT ---
PROCEDURE: XR Chest. CLINICAL INDICATION: Chest pain. TECHNIQUE: AP Portable chest. COMPARISON: 11/27/2016 FINDINGS: The cardiomediastinal silhouette is within normal limits. The aortic arch is calcified. No focal con solidation, pleural effusion or pneumothorax is seen. The osseous structures are intact. IMPRESSION: No radiographic evidence of acute cardiopulmonary disease. Physician Marisol Date Time Electronically viewed and signed by Norma Kyle Physician on 11/29/2016 08:10 /
[2016-11-29] MEDS: morphine 2 MG INJ IV PRN (08:24)
--- NOTE | 2016-11-29 08:40 | RADRPT ---
Vent Rate: 54 bpm RR Interval: 0 msec MA Interval: 152 msec QRS Duration: 72 msec QT Interval: 442 msec QTC Interval: 419 msec P-R-T [place]: 64 - -16 - 23 degrees Sinus bradycardia Anteroseptal infarct , age undetermined Abnormal ECG Electronically Signed By: Angel Mckeon [id number]
[2016-11-29] MEDS: ENOXAPARIN 40 MG/0.4 ML SYG SC SCH (09:00)
[2016-11-29] MEDS: PROPYLTHIOURACIL 50 MG TAB PO SCH (09:07)
[2016-11-29] MEDS: ATORVASTATIN 80 MG TAB PO SCH (09:08)
[2016-11-29] MEDS: FAMOTIDINE 20 MG TAB PO SCH ×2 (09:08→20:46)
[2016-11-29] MEDS: BENAZEPRIL 10 MG TAB PO SCH ×2 (09:08→20:46)
[2016-11-29] MEDS: ASPIRIN 81 MG TAB PO SCH (09:08)
[2016-11-29] MEDS: AMLODIPINE 5 MG TAB PO SCH (09:08)
[2016-11-29] MEDS: CLOPIDOGREL 75 MG TAB PO SCH (09:08)
--- NOTE | 2016-11-29 09:54 | CONS ---
Date/Time of Note Date/Time of Note DATE: 11/29/16 TIME: 09:46 Assessment/Plan Assessment/Plan Chief Complaint/Hosp Course IMP: 1.Chest pain-concerning unstable angina 2.abnl ecg- Q's 3.PVC's 4HTN 5.Cardiomyopathy with low EF 6. Dyslipidemia 7. Hyperthyroid on PTU Recc: -Tele -serial ecg's -Contnue IV nitro for now -Contnue asa/plavix/statin -LHC with possible PTCA/stent today Problems: Consultation Date/Type/Reason Admit Date/Time Nov 27, 2016 at 22:34 Initial Consult Date 11/28/2016 Type of Consultation: cardiology Reason for Consultation chest pain Referring Provider: JANE HUANG MD Exam/Review of Systems Vital Signs Vitals Vital Signs Date Time Temp Pulse Resp B/P Pulse Ox O2 Delivery O2 Flow Rate FiO2 11/29/16 08:30 58 18 128/77 99 Room Air 11/29/16 08:00 98.1 11/27/16 22:51 2.0 Intake and Output 11/28/16 11/28/16 11/29/16 15:00 23:00 07:00 Intake Total 402.5 ml 568 ml 219 ml Output Total 700 ml 1250 ml 550 ml Balance -297.5 ml -682 ml -331 ml Exam Review of Systems: CONSTITUTIONAL: No fevers, chills. PULMONARY: No sob CARDIOVASCULAR: intermittent chest pain GASTROINTESTINAL: No nausea/vomiting. GENITOURINARY: No hematuria/dysuria. MUSCULOSKELETAL: No myagias/arthalgias. PSYCHIATRIC: The patient denies depression. NEUROLOGIC: No weakness Constitutional: alert Psych: no complaints Head: normocephalic ENMT: mucosa pink and moist Neck: jvd (9 cm water), supple Respiratory: diminished breath sounds Cardiovascular: regular rate and rhythm Gastrointestinal: non-tender, soft Musculoskeletal: muscle tone Extremities: edema (none) Neurological: other (no focal deficits) Results Result Diagram: 11/29/16 0452 11/29/16 0452 Results 24 hrs Laboratory Tests Test 11/28/16 16:15 11/29/16 04:52 Free Thyroxine 0.92 Free Triiodothyronine (T3) pg/mL 4.28 White Blood Count 8.0 Red Blood Count 4.41 L Hemoglobin 13.4 L Hematocrit 39.8 L Mean Corpuscular Volume 90.2 Mean Corpuscular Hemoglobin 30.4 Mean Corpuscular Hemoglobin Concent 33.7 Red Cell Distribution Width 13.5 Platelet Count 185 Mean Platelet Volume 9.9 Neutrophils % 56.1 Lymphocytes % 33.7 Monocytes % 7.8 Eosinophils % 1.8 Basophils % 0.5 Nucleated Red Blood Cells % 0.0 Neutrophils # 4.5 Lymphocytes # 2.7 Monocytes # 0.6 Eosinophils # 0.1 Basophils # 0.0 Nucleated Red Blood Cells # 0.0 Sodium Level 140 Potassium Level 4.3 Chloride Level 106 Carbon Dioxide Level 27 Anion Gap 11 Blood Urea Nitrogen 18 Creatinine 1.09 Glucose Level 91 Calcium Level 9.3 Phosphorus Level 4.4 Magnesium Level 1.9 Albumin 3.9 Medications Medications Current Medications Acetaminophen (Tylenol Tab) 650 mg Q6H PRN PO PAIN LEVEL 1-3 OR FEVER Last administered on 11/28/16 10:22; Admin Dose 650 MG; Start 11/27/16 at 23:00 Bisacodyl (Dulcolax) 5 mg DAILY PRN PO CONSTIPATION; Start 11/27/16 at 23:00 Famotidine (Pepcid) 20 mg Q12 PO Last administered on 11/29/16 09:08; Admin Dose 20 MG; Start 11/28/16 at 09:00 Enoxaparin Sodium (Lovenox) 40 mg DAILY SC Last administered on 11/28/16 09:15 ; Admin Dose 40 MG; Start 11/28/16 at 09:00 Ondansetron HCl (Zofran Inj) 4 mg Q6H PRN IV NAUSEA AND/OR VOMITING Last administered on 11/29/16 08:24; Admin Dose 4 MG; Start 11/27/16 at 23:30 Acetaminophen (Tylenol Liquid) 650 mg Q6H PRN PO PAIN LEVEL 1-3 OR FEVER; Start 11/27/16 at 23:30 Morphine Sulfate (morphine) 2 mg Q4H PRN IV PAIN LEVEL 7-10 Last administered on 11/29/16 08:24; Admin Dose 2 MG; Start 11/27/16 at 23:30 Aspirin (Aspirin) 81 mg DAILY PO Last administered on 11/29/16 09:08; Admin Dose 81 MG; Start 11/28/16 at 09:00 Atorvastatin Calcium (Lipitor) 80 mg DAILY PO Last administered on 11/29/16 09 :08; Admin Dose 80 MG; Start 11/28/16 at 09:00 Clopidogrel Bisulfate (plaVIX) 75 mg DAILY PO Last administered on 11/29/16 09 :08; Admin Dose 75 MG; Start 11/28/16 at 09:00 Propylthiouracil 50 mg 50 mg DAILY PO Last administered on 11/29/16 09:07; Admin Dose 50 MG; Start 11/28/16 at 09:00 Nitroglycerin/ Dextrose (Nitroglycerin 50 Mg/D5W (Pmx)) 250 ml @ 1.5 mls/hr TITRATE IV Last administered on 11/29/16 03:46; Admin Dose 15 MLS/HR; Start at 10:20 Amlodipine Besylate (Norvasc) 5 mg DAILY PO Last administered on 11/29/16 09: 08; Admin Dose 5 MG; Start 11/28/16 at 11:00 Benazepril HCl (Lotensin) 10 mg BID PO Last administered on 11/29/16 09:08; Admin Dose 10 MG; Start 11/28/16 at 11:00 Carvedilol (Coreg) 6.25 mg BID PO Last administered on 11/29/16 09:09; Admin Dose 6.25 MG; Start 11/28/16 at 11:00 Docusate Sodium (Colace) 100 mg BID PRN PO CONSTIPATION Last administered on 15:21; Admin Dose 100 MG; Start 11/28/16 at 15:30 CHAN OTTO Nov 29, 2016 09:54
[2016-11-29] MEDS ORDERED: FENTAnyl 50 MCG/ML VIAL ONE (12:04)
[2016-11-29] MEDS ORDERED: LIDOCAINE 1% (MDV) 20 ML INJ ONE (12:04)
[2016-11-29] MEDS ORDERED: HEPARIN 1000 UNITS/NS (A-LINE) 1,000 ML ONE (12:04)
[2016-11-29] MEDS ORDERED: HEPARIN 1000 UNITS/ML 10 ML INJ ONE (12:04)
[2016-11-29] MEDS ORDERED: IODIXANOL LOCM 100 ML BTL ONE ×3 (12:04→14:05)
[2016-11-29] MEDS ORDERED: MIDAZOLAM 1 MG/ML 2 ML INJ ONE (12:04)
[2016-11-29] MEDS ORDERED: VERAPAMIL 5 MG INJ ONE (12:05)
[2016-11-29] MEDS ORDERED: NITROGLYCERIN (IC) 100 MCG/ML INJ ONE (12:05)
--- NOTE | 2016-11-29 14:06 | PN ---
Date/Time of Note Date/Time of Note DATE: 11/29/16 TIME: 14:04 Assessment/Plan VTE Prophylaxis VTE Prophylaxis Intervention: SCD's Lines/Catheters IV Catheter Type (from [email or web address] Peripheral IV Urinary Cath still in place: No Assessment/Plan Chief Complaint/Hosp Course 1. Acute chest pain rule out ACS - Patient has a very extensive cardiac history with multiple stent placements and repeated PCI secondary to restenosed stents. Followed by Dr. Brooks - cath pending per Dr. Brooks 2. History of CAD, s/p multiple stent placement, including for in-stent restenosis - Will continue medications 3. Hypertension - stable. continue monitoring 4. Dyslipidemia - Continue statin 5. BPH 6. Hyperthyroidism - continue PTU - TSH low, will check T3 and T4 levels >30 minutes of critical care time was spent with patient and family at bedside. All concerns addressed and questions answered. Problems: Subjective 24 Hr Interval Summary Free Text/Dictation no acute complaints. awaiting cath Exam/Review of Systems Vital Signs Vitals Vital Signs Date Time Temp Pulse Resp B/P Pulse Ox O2 Delivery O2 Flow Rate FiO2 11/29/16 12:00 63 11/29/16 11:45 13 113/71 99 11/29/16 11:30 Room Air 11/29/16 08:00 98.1 11/27/16 22:51 2.0 Intake and Output 11/28/16 11/28/16 11/29/16 14:59 22:59 06:59 Intake Total 402.5 ml 568 ml 231 ml Output Total 700 ml 1250 ml 550 ml Balance -297.5 ml -682 ml -319 ml Exam General: no acute distress currently. awake and alert. HEENT: Atraumatic, normocephalic. The pupils are equal, round and reactive. Extraocular motor are intact Neck: Supple with full range of motion. Chest: Nontender Lungs: Clear to auscultation bilaterally no crackles rales or wheezing Heart: Normal S1-S2, Regular rhythm and rate. Abdomen: Soft , nontender, nondistended , bowel sounds are present. No guarding no rebound tenderness , Extremities: Normal to inspection, no edema no cyanosis Neurologic: Normal mental status, speech normal, cranial nerves II through XII are intact, motor and sensory are intact, no focal weakness Results Result Diagram: 11/29/1645111/29/16451 Results 24 hrs Laboratory Tests Test 11/28/16 16:15 11/29/16 04:52 Free Thyroxine 0.92 Free Triiodothyronine (T3) pg/mL 4.28 White Blood Count 8.0 Red Blood Count 4.41 L Hemoglobin 13.4 L Hematocrit 39.8 L Mean Corpuscular Volume 90.2 Mean Corpuscular Hemoglobin 30.4 Mean Corpuscular Hemoglobin Concent 33.7 Red Cell Distribution Width 13.5 Platelet Count 185 Mean Platelet Volume 9.9 Neutrophils % 56.1 Lymphocytes % 33.7 Monocytes % 7.8 Eosinophils % 1.8 Basophils % 0.5 Nucleated Red Blood Cells % 0.0 Neutrophils # 4.5 Lymphocytes # 2.7 Monocytes # 0.6 Eosinophils # 0.1 Basophils # 0.0 Nucleated Red Blood Cells # 0.0 Sodium Level 140 Potassium Level 4.3 Chloride Level 106 Carbon Dioxide Level 27 Anion Gap 11 Blood Urea Nitrogen 18 Creatinine 1.09 Glucose Level 91 Calcium Level 9.3 Phosphorus Level 4.4 Magnesium Level 1.9 Albumin 3.9 Medications Medications Current Medications Acetaminophen (Tylenol Tab) 650 mg Q6H PRN PO PAIN LEVEL 1-3 OR FEVER Last administered on 11/28/16 10:22; Admin Dose 650 MG; Start 11/27/16 at 23:00 Bisacodyl (Dulcolax) 5 mg DAILY PRN PO CONSTIPATION; Start 11/27/16 at 23:00 Famotidine (Pepcid) 20 mg Q12 PO Last administered on 11/29/16 09:08; Admin Dose 20 MG; Start 11/28/16 at 09:00 Enoxaparin Sodium (Lovenox) 40 mg DAILY SC Last administered on 11/28/16 09:15 ; Admin Dose 40 MG; Start 11/28/16 at 09:00 Ondansetron HCl (Zofran Inj) 4 mg Q6H PRN IV NAUSEA AND/OR VOMITING Last administered on 11/29/16 08:24; Admin Dose 4 MG; Start 11/27/16 at 23:30 Acetaminophen (Tylenol Liquid) 650 mg Q6H PRN PO PAIN LEVEL 1-3 OR FEVER; Start 11/27/16 at 23:30 Morphine Sulfate (morphine) 2 mg Q4H PRN IV PAIN LEVEL 7-10 Last administered on 11/29/16 08:24; Admin Dose 2 MG; Start 11/27/16 at 23:30 Aspirin (Aspirin) 81 mg DAILY PO Last administered on 11/29/16 09:08; Admin Dose 81 MG; Start 11/28/16 at 09:00 Atorvastatin Calcium (Lipitor) 80 mg DAILY PO Last administered on 11/29/16 09 :08; Admin Dose 80 MG; Start 11/28/16 at 09:00 Clopidogrel Bisulfate (plaVIX) 75 mg DAILY PO Last administered on 11/29/16 09 :08; Admin Dose 75 MG; Start 11/28/16 at 09:00 Propylthiouracil 50 mg 50 mg DAILY PO Last administered on 11/29/16 09:07; Admin Dose 50 MG; Start 11/28/16 at 09:00 Nitroglycerin/ Dextrose (Nitroglycerin 50 Mg/D5W (Pmx)) 250 ml @ 1.5 mls/hr TITRATE IV Last administered on 11/29/16 03:46; Admin Dose 15 MLS/HR; Start at 10:20 Amlodipine Besylate (Norvasc) 5 mg DAILY PO Last administered on 11/29/16 09: 08; Admin Dose 5 MG; Start 11/28/16 at 11:00 Benazepril HCl (Lotensin) 10 mg BID PO Last administered on 11/29/16 09:08; Admin Dose 10 MG; Start 11/28/16 at 11:00 Carvedilol (Coreg) 6.25 mg BID PO Last administered on 11/29/16 09:09; Admin Dose 6.25 MG; Start 11/28/16 at 11:00 Docusate Sodium (Colace) 100 mg BID PRN PO CONSTIPATION Last administered on 15:21; Admin Dose 100 MG; Start 11/28/16 at 15:30 PASCUAL FIERRO Nov 29, 2016 14:06
[2016-11-29] MEDS ORDERED: SOD CHLORIDE 0.9% 1,000 ML IV SCH (14:16)
[2016-11-29] MEDS ORDERED: BIVALIRUDIN 250MG /NS 50 ML 50 ML IVPB SCH (14:16)
[2016-11-29] MEDS ORDERED: CLOPIDOGREL 300 MG TAB ONE (14:17)
--- NOTE | 2016-11-29 14:28 | RADRPT ---
Echocardiogram Report Patient Name: PAMELA HARMAN Gender: Male Date: 1950 Study Date: 28-Nov-2016 Registered Nurse Fetal: Julito [facility] Location: [address] Ref. Physician: ALEX GRACIA Quality: Adequate Procedures: Transthoracic echocardiogram with complete 2D, M-Mode, and doppler examination. Indications: Chest Pain. 2D/M Mode Doppler Measurement Value Normal Ranges Measurement Value Normal Ranges LVIDd 2D 4.6 3.5 - 5.6 cm AV Peak Jose 2.1 m/sec LVIDs 2D 3.0 2.1 - 4.1 cm AV Peak PG 17.0 mmHg FS 2D 35.6 % LVOT Peak Jose 1.1 m/sec LVPWd 2D 1.3 0.6 - 1.1 cm LVOT Peak PG 4.0 mmHg IVSd 2D 1.3 0.6 - 1.1 cm MV E Peak Jose 1.0 m/sec IVS/LVPW 2D 1.0 MV A Peak Jose 0.7 m/sec AoR Diam 2D 2.9 2.0 - 3.7 cm MV E/A 1.4 LA/Ao 2D 1 0 - 1 MV Decel Time 148 msec EDV 2D 96.1 cm3 MV E/A 1.4 ESV 2D 25.7 cm3 TR Peak Jose 2.5 m/sec LA Dimen 2D 3.6 2.3 - 4.0 cm TR Peak PG 24.0 mmHg Findings Left Ventricle: Normal left ventricular cavity size. Mild concentric left ventricular hypertrophy. Mild global left ventricular systolic dysfunction. Ejection fraction is visually estimated at 40 %. Abnormal Diastolic Function. Right Ventricle: Normal right ventricular size. Normal right ventricular systolic function. Left Atrium: The left atrium is normal in size. Right Atrium: The right atrium is normal in size. Mitral Valve: Mild mitral leaflet calcification. Mild mitral annular calcification. Trace mitral regurgitation. Aortic Valve: Aortic sclerosis without stenosis. Tricuspid Valve: Normal appearance of the tricuspid valve. Estimated peak PA systolic pressure 24 mmHg. There is trace tricuspid regurgitation. Pulmonic Valve: Pulmonic valve not well visualized. There is trace pulmonic regurgitation. Pericardium: Normal pericardium with no significant pericardial effusion. Aorta: Normal aortic root. IVC: The IVC is not well visualized. Conclusions 1.Technically difficult study due to patient`s body habitus. 2.Normal left ventricular cavity size. Mild concentric left ventricular hypertrophy. Mild global left ventricular systolic dysfunction. Ejection fraction is visually estimated at about 35-40 %. The LV apex is severely hypokinetic (not bulging). Abnormal Diastolic Function, grade 1. 3.Mild mitral leaflet calcification. Mild mitral annular calcification. 4.Aortic sclerosis without stenosis. 5.Estimated peak PA systolic pressure 24 mmHg, normal. Electronically Signed By: Feliciano Jaramillo 29-Nov-2016 14:27:50 -0700 Patient Name: PAMELA HARMAN Study Date: 28-Nov-2016 [id number]
[2016-11-29] MEDS ORDERED: ZOLPIDEM 5 MG TAB PO PRN (14:30)
[2016-11-29] MEDS ORDERED: OXYCODONE/ACETAMINOPHEN (5/325) TAB PO PRN (14:30)
[2016-11-29] MEDS ORDERED: AL HYDROX/MG HYDROX/SIMETH 30 ML CUP PO PRN (14:30)
[2016-11-29] MEDS ORDERED: ONDANSETRON 4 MG INJ IV PRN (14:30)
[2016-11-29] MEDS ORDERED: ACETAMINOPHEN 325 MG TAB PO PRN (14:30)
--- NOTE | 2016-11-29 14:37 | SIPON ---
Date/Time of Note Date/Time of Note DATE: 11/29/16 TIME: 14:34 Operative Report Preoperative Diagnosis 1. Angina unstbale Postoperative Diagnosis 1. obstructive cad s/p PTCA/stent x 1 to mid RCA instent restenosis and PTCA alone to in stent LAD Operation/Procedure Performed 1.[facility] 2.PTCA/stent x 1 to RCA in-stent restenosis 3. 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
[2016-11-30] VITALS: BP 100/50; PULSE 57; RESP 20
[2016-11-30 04:00] VITALS: PULSE 54
[2016-11-30 05:30] LABS: BASOPHILS % 0.2 % (0.0-2.0); EOSINOPHILS # 0.1 10^3/ul (0.0-0.5); EOSINOPHILS % 1.6 % (0.0-7.0); HEMATOCRIT 42.6 % (42.0-52.0); HEMOGLOBIN 14.2 g/dl (14.0-18.0); LYMPHOCYTES # 2.3 10^3/ul (0.8-2.9); LYMPHOCYTES % 26.4 % (15.0-51.0); MEAN CORPUSCULAR HEMOGLOBIN 29.9 pg (29.0-33.0); MEAN CORPUSCULAR HGB CONC 33.3 g/dl (32.0-37.0); MEAN CORPUSCULAR VOLUME 89.7 fl (82.0-101.0); MEAN PLATELET VOLUME 9.9 fl (7.4-10.4); MONOCYTE # 0.7 10^3/ul (0.3-0.9); NEUTROPHIL # 5.4 10^3/ul (1.6-7.5); NEUTROPHILS % 63.3 % (39.0-77.0); PLATELET COUNT 176 10^3/UL (140-415); RED BLOOD COUNT 4.75 10^6/ul (4.70-6.10); RED CELL DISTRIBUTION WIDTH 13.6 % (11.5-14.5); WHITE BLOOD COUNT 8.6 10^3/ul (4.8-10.8)
[2016-11-30 05:47] LABS: CALCIUM 9.1 mg/dl (8.4-10.2); CREATININE 0.94 mg/dl (0.61-1.24); MAGNESIUM 1.9 mg/dl (1.7-2.5); PHOSPHORUS 4.5 mg/dl (2.5-4.9); POTASSIUM 4.4 mmol/L (3.5-5.1)
[2016-11-30 08:00] VITALS: BP 129/72; PULSE 62; PULSE 67; RESP 20
[2016-11-30] MEDS: BENAZEPRIL 10 MG TAB PO SCH (08:23)
[2016-11-30] MEDS: ATORVASTATIN 80 MG TAB PO SCH (08:23)
[2016-11-30] MEDS: CLOPIDOGREL 75 MG TAB PO SCH (08:23)
[2016-11-30] MEDS: FAMOTIDINE 20 MG TAB PO SCH (08:24)
[2016-11-30] MEDS: AMLODIPINE 5 MG TAB PO SCH (08:24)
[2016-11-30] MEDS: ENOXAPARIN 40 MG/0.4 ML SYG SC SCH (08:29)
[2016-11-30] MEDS: PROPYLTHIOURACIL 50 MG TAB PO SCH (08:30)
[2016-11-30 09:00] VITALS: BP 123/64; PULSE 60; RESP 19
[2016-11-30] MEDS ORDERED: ASPIRIN (EC) 325 MG TAB PO SCH (09:00)
--- NOTE | 2016-11-30 09:23 | CONS ---
Date/Time of Note Date/Time of Note DATE: 11/30/16 TIME: 09:21 Assessment/Plan Assessment/Plan Additional Assessment/Plan 1.Chest pain-concerning unstable angina - s/p LHC with stenting per DR. Brooks - taryn now 2.abnl ecg- Q's - post JAYESH x 2 3.PVC's - no new episodes 4HTN - well Rx 5.Cardiomyopathy with low EF - will see as outpt 6. Dyslipidemia 7. Hyperthyroid on PTU Consultation Date/Type/Reason Admit Date/Time Nov 27, 2016 at 22:34 Initial Consult Date Type of Consultation: cardiology Referring Provider: JANE HUANG MD 24 HR Interval Summary Free Text/Dictation s/p LHC with stenting per DR. Cecilia centeno now - cath site looks well- d/c today ROS: No fever, no chills, no nausea, no vomiting, no diarrhea/constipation No recent weight changes No chest pain, no PND, no orthopnea No dizziness, blurred vision No thirst, no heat or cold intolerance Exam/Review of Systems Vital Signs Vitals Vital Signs Date Time Temp Pulse Resp B/P Pulse Ox O2 Delivery O2 Flow Rate FiO2 11/30/16 08:00 62 11/30/16 00:00 98.6 20 100/50 98 11/29/16 11:30 Room Air 11/27/16 22:51 2.0 Intake and Output 11/29/16 11/29/16 11/30/16 15:00 23:00 07:00 Intake Total 706.5 ml 225 ml 1100 ml Output Total 750 ml 300 ml 1250 ml Balance -43.5 ml -75 ml -150 ml Exam General: WN/WD/NAD, AOx 3 HEENT: Unicetric/atraumatic/EOMI (follow commands) NECK: JVD elevated, no thyromegaly Lymph: no lymphadenopathy HEART: regular with no S3, II/ systolic murmur at apex LUNGS: Coarse sounds ABD: soft, NT, ND, +BS : Intact Neuro: non focal SKIN: chronic changes EXT: trace edema, good pulses s/p LHC Results Result Diagram: 11/30/16 0510 11/30/16 0510 Results 24 hrs Laboratory Tests Test 11/30/16 05:10 White Blood Count 8.6 Red Blood Count 4.75 Hemoglobin 14.2 Hematocrit 42.6 Mean Corpuscular Volume 89.7 Mean Corpuscular Hemoglobin 29.9 Mean Corpuscular Hemoglobin Concent 33.3 Red Cell Distribution Width 13.6 Platelet Count 176 Mean Platelet Volume 9.9 Neutrophils % 63.3 Lymphocytes % 26.4 Monocytes % 8.0 Eosinophils % 1.6 Basophils % 0.2 Nucleated Red Blood Cells % 0.0 Neutrophils # 5.4 Lymphocytes # 2.3 Monocytes # 0.7 Eosinophils # 0.1 Basophils # 0.0 Nucleated Red Blood Cells # 0.0 Sodium Level 140 Potassium Level 4.4 Chloride Level 109 Carbon Dioxide Level 24 Anion Gap 11 Blood Urea Nitrogen 15 Creatinine 0.94 Glucose Level 89 Calcium Level 9.1 Phosphorus Level 4.5 Magnesium Level 1.9 Medications Medications Current Medications Acetaminophen (Tylenol Tab) 650 mg Q6H PRN PO PAIN LEVEL 1-3 OR FEVER Last administered on 11/28/16 10:22; Admin Dose 650 MG; Start 11/27/16 at 23:00 Bisacodyl (Dulcolax) 5 mg DAILY PRN PO CONSTIPATION Last administered on 16:06; Admin Dose 5 MG; Start 11/27/16 at 23:00 Famotidine (Pepcid) 20 mg Q12 PO Last administered on 11/30/16 08:24; Admin Dose 20 MG; Start 11/28/16 at 09:00 Enoxaparin Sodium (Lovenox) 40 mg DAILY SC Last administered on 11/30/16 08:29 ; Admin Dose 40 MG; Start 11/28/16 at 09:00 Ondansetron HCl (Zofran Inj) 4 mg Q6H PRN IV NAUSEA AND/OR VOMITING Last administered on 11/29/16 08:24; Admin Dose 4 MG; Start 11/27/16 at 23:30 Acetaminophen (Tylenol Liquid) 650 mg Q6H PRN PO PAIN LEVEL 1-3 OR FEVER; Start 11/27/16 at 23:30 Morphine Sulfate (morphine) 2 mg Q4H PRN IV PAIN LEVEL 7-10 Last administered on 11/29/16 08:24; Admin Dose 2 MG; Start 11/27/16 at 23:30 Atorvastatin Calcium (Lipitor) 80 mg DAILY PO Last administered on 11/30/16 08 :23; Admin Dose 80 MG; Start 11/28/16 at 09:00 Clopidogrel Bisulfate (plaVIX) 75 mg DAILY PO Last administered on 11/30/16 08 :23; Admin Dose 75 MG; Start 11/28/16 at 09:00 Propylthiouracil 50 mg 50 mg DAILY PO Last administered on 11/29/16 09:07; Admin Dose 50 MG; Start 11/28/16 at 09:00 Nitroglycerin/ Dextrose (Nitroglycerin 50 Mg/D5W (Pmx)) 250 ml @ 1.5 mls/hr TITRATE IV Last administered on 11/29/16 03:46; Admin Dose 15 MLS/HR; Start at 10:20 Amlodipine Besylate (Norvasc) 5 mg DAILY PO Last administered on 11/30/16 08: 24; Admin Dose 5 MG; Start 11/28/16 at 11:00 Benazepril HCl (Lotensin) 10 mg BID PO Last administered on 11/30/16 08:23; Admin Dose 10 MG; Start 11/28/16 at 11:00 Carvedilol (Coreg) 6.25 mg BID PO Last administered on 11/30/16 08:23; Admin Dose 6.25 MG; Start 11/28/16 at 11:00 Docusate Sodium (Colace) 100 mg BID PRN PO CONSTIPATION Last administered on 15:21; Admin Dose 100 MG; Start 11/28/16 at 15:30 Aspirin (Ecotrin) 325 mg DAILY PO Last administered on 11/30/16 08:24; Admin Dose 325 MG; Start 11/30/16 at 09:00 Acetaminophen (Tylenol Tab) 650 mg Q4H PRN PO NON-CARDIAC PAIN LEVEL 1-3; Start 11/29/16 at 14:30 Oxycodone/ Acetaminophen (Percocet (5/ 325)) 1 tab Q4H PRN PO REPORTED NON- CARDIAC PAIN 4-7; Start 11/29/16 at 14:30 Al Hydrox/Mg Hydrox/Simethicone (Mag-Al Plus) 30 ml Q4H PRN PO GASTROINTESTINAL UPSET; Start 11/29/16 at 14:30 Ondansetron HCl (Zofran Inj) 4 mg Q4H PRN IV NAUSEA AND/OR VOMITING; Start at 14:30 SHERINE ALEXANDER MD Nov 30, 2016 09:23
--- NOTE | 2016-11-30 09:27 | PDOCDIS ---
Discharge Instructions CONDITION Patient Condition: Fair HOME CARE INSTRUCTIONS: Special Diet: 2GM NA ACTIVITY: Activity Restrictions: Slowly Increase Activity FOLLOW UP/APPOINTMENTS Follow-up Plan Please follow up with Dr. Brooks, Cardiology and your primary care provider as soon as possible. PASCUAL FIERRO Nov 30, 2016 09:27
[2016-11-30 12:00] VITALS: PULSE 86
--- NOTE | 2016-11-30 12:32 | CARRPT ---
DATE OF PROCEDURE: 11/29/2016 TYPE OF PROCEDURE: 1. Left heart catheterization. 2. Coronary angiography. 3. Percutaneous transluminal coronary angioplasty with placement of Synergy drug eluting stent x1 to mid right coronary artery with a 3.0 x 20 mm. 4. Percutaneous transluminal coronary angioplasty to in-stent restenosis in mid LAD. 5. Measure left ventricular end-diastolic pressure. 6. Moderate conscious sedation. ATTENDING PHYSICIAN: August Brooks MD REFERRING PHYSICIAN: Dr. Woody from the Hospitalist Service. INDICATION: Angina refractory to medical therapy. TYPE OF ANESTHESIA: Conscious and local. BRIEF HISTORY AND HOSPITAL COURSE: The patient is a 66-year-old male with history of hypertension, dyslipidemia, coronary artery disease, status post multiple prior PTCA and stent placements, cardiomyopathy, who initially presented with complaints of substernal chest pain and remitting. The patient subsequently was ruled out for myocardial infarction, but continues to have unremitting chest pain on IV nitroglycerin. 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 PROCEDURE: After informed consent was obtained, the patient was brought to [facility], where his right radial groin was prepped and draped in sterile fashion, 2 percent lidocaine was infiltrated into the right radial artery in order to achieve adequate anesthesia. Using the modified Seldinger technique, the radial artery was cannulated and a 6 Persian arterial sheath was placed a 6-Persian JL 3.5 catheter was used to was used to attempt to removed over a guidewire and after being used to additionally cross the LV and measure the left ventricular end-diastolic pressure. Then pullback across the aortic valve to assess for significant gradient, which there was none removed. Subsequently, at this time interventional procedure. Patient had an Angiomax bolus continuous infusion. The patient had a posterior guide placed into the right coronary artery. A 0.014 Bentson guidewire was passed distal to the lesion in the right coronary artery , subsequently balloon inflations were made with a 2.5 x 15 mm balloon up to 16 to 18 atmospheres. This was removed and the area was then stented with a 3.0 x 20 mm drug-eluting stent within the midportion of the stent deployed at 14 atmospheres, post dilated with a stent delivery system up to 16 atmospheres and again 18 atmospheres. Then the stent overlapped area was then done proximal, this balloon was removed and a noncompliant 3.25 balloon was used to further post dilate this stent up to 20 atmospheres throughout the stented area and . The noncompliant balloon was removed. Follow up angiogram was obtained revealing excellent deployment of the stent. RICO-3 flow throughout the vessel. No signs of complication including perforation or dissection. Subsequently at this time, this was removed and the guide was removed and we then turned our attention to a mid LAD stenotic 7. Subsequently, a Q 3 guide was used to cath the left main coronary ostium. A 0.014 Bentson guidewire was passed through this vessel and this lesion was stented with a balloon angioplasty alone for in-stent restenotic lesion with a 3.25 noncompliant balloon inflated up to 18 atmospheres x2 achieving improved expansion. Subsequently this was removed. Follow up angiogram was obtained revealing excellent result deployment for this balloon angioplasty. No signs of complications . Subsequently, at this time as the patient continued to have chest pain, at pigtail was passed into the ascending aorta. An aortic angiography undertaken, revealing no definite signs of dissection, but possible aortic regurgitation, but possible catheter induced as the catheter seemed to cross the valve during injection. Subsequently, this was removed. The patient's sheath was removed. TR band was applied. This completed the procedure. There were no complications. the patient did receive radial cocktail and also had 2.5 mg of verapamil, 200 mcg IV nitroglycerin within it. FINDINGS: Coronary angiography: Left main 4 mm with a distal 40 percent stenosis, somewhat hazy viewed from several different angles, previously noted. The LAD proximally is a 3.5 mm vessel and its ostium has a 20 percent stenosis, then there was a long stented zone from proximal to mid with an area of in-stent restenosis up to approximately 70 percent in the mid portion. There were several small branching diagonals . The circumflex proximally is a 3 mm vessel, and it has proximal portion and after take off long stented zone of obtuse marginal 30 to 40 percent. The right coronary artery proximally is a 3 mm vessel and has a long stented zone extending from proximal to the mid distal portion 90 percent in its midportion. The right coronary artery thereafter . Measurement of left ventricular end-diastolic pressure of 20, no significant aortic stenosis by gradient. PTCA and stent placement, prior there was no evidence of stenosis in this region. RICO-3 flow throughout the vessel. No signs of complications including perforation or dissection. PTCA with an LAD. Prior to PTCA in the LAD the patient had an approximately 70 percent in-stent resection. Post PTCA, the patient had a residual of 20 percent stenotic lesion there. , which was outside of the stent affecting a full expansion. Aortic root angiography the patient had no definite signs of dissections line, but did notice significant AR, but possibly catheter-induced as the catheter crossed the valve during injection. TOTAL FLUOROSCOPY TIME: 22.6 minutes. TOTAL CONTRAST: 240 mL. IMPRESSION: 1. Two-vessel obstructive coronary disease involving a mid left anterior descending lesion approximately 70 percent and a in the mid right coronary artery, high grade. Status post successful percutaneous transluminal coronary angiogram and stent placement x1 to in-stent restenotic section of the right coronary artery and percutaneous transluminal coronary angioplasty alone to in-stent restenotic section of left anterior descending. 2. Moderate stenosis of the distal left main. 3. Mildly elevated left heart filling pressures. 4. Possible catheter-induced aortic regurgitation. RECOMMENDATIONS: In light of procedure findings at time would: 1. Maintain patient on aspirin 325 mg 1 tab p.o. daily indefinitely at this time. 2. Plavix 75 mg 1 tab p.o. daily for at least 1 year. 3. Maximize medical management. 4. Aggressive risk factor reduction. 5. Will review the patient's echo to assess if the patient has true AR or it if was catheter-induced. 6. Continue follow patient's symptoms closely. ADDENDUM: 300 mg of p.o. Plavix and 325 mg of aspirin at the conclusion of the procedure. Dictated By: August Brooks MD /sandi/clare /Document#: [id number]
--- NOTE | 2016-11-30 16:08 | DS ---
Date/Time of Note Date/Time of Note DATE: 11/30/16 TIME: 16:08 Discharge Summary Admission/Discharge Info Admit Date/Time Nov 27, 2016 at 22:34 Discharge Date/Time Nov 30, 2016 at 09:55 Patient Condition: Fair Hx of Present Illness Chief complaint: Left-sided chest pain 66-year-old male with history of hypertension, cardiac disease status post multiple PCI's most recently 06/17/2016, COPD and BPH presents to the ED by rescue ambulance for evaluation of chest pain. Patient admits to chronic chest pain for the last 2 weeks has been increasing in intensity and severity. This afternoon while sitting in a chair at unprovoked, severe, nonradiating, pressure -like substernal chest pain with shortness of breath, nausea but no vomiting and diaphoresis. Unrelieved by sublingual nitroglycerin and aspirin hence paramedics were called. Pain is improved from a 7 down to a 6 but still described as severe. Denies leg pain or swelling. No headache or visual changes. Denies leg pain or swelling. No abdominal pain or back pain. No URI symptoms or cough. No fevers or chills. Upon my examination at the bedside patient continued to have chest pain while on nitro drip. Nitro drip required titration. He also received morphine, though patient states that he gets a odd feeling when he has morphine including nausea for which she was given Zofran. Allergies: NKDA Medications: See MAR Hospital Course 66-year-old male with history of hypertension, cardiac disease status post multiple PCI's most recently 06/17/2016, COPD and BPH presents to the ED by rescue ambulance for evaluation of chest pain. Patient was evaluated by cardiology, and was taken to cath despite negative troponin and stenosis was found and patient's right great artery received 1 stent and LAD received angioplasty patient recovered well the ICU. Patient was stable for discharge with clean cath site and will follow up with patient's own director strategic planning within 1 week. Patient is to continue all home medications as he is currently medically optimized per cardiology. Discharge diagnosis Acute chest pain Coronary disease Hypertension This lipidemia BPH Hyperthyroidism Home Meds Reported Medications Furosemide (Lasix) 20 Mg Tab, 20 MG PO VERY OTHERDAY, TAB 06/15/16 Tamsulosin Hcl* (Tamsulosin Hcl*) 0.4 Mg Cap.er.24h, 0.4 MG PO HS, CAP 06/15/16 Propylthiouracil* (Propylthiouracil*) 50 Mg Tablet, 50 MG PO DAILY, TAB 06/15/16 Amlodipine Besylate* (Norvasc*) 2.5 Mg Tablet, 2.5 MG PO DAILY, TAB 06/15/16 Carvedilol* (Coreg*) 6.25 Mg Tablet, 6.25 MG PO BID, #60 TAB 06/15/16 Benazepril Hcl* (Benazepril Hcl*) 10 Mg Tablet, 10 MG PO BID, #60 TAB 06/15/16 Ranitidine Hcl (Ranitidine Hcl) 150 Mg Capsule, 150 MG PO BID, #60 CAP 06/15/16 Clopidogrel Bisulfate (Clopidogrel) 75 Mg Tablet, 75 MG PO DAILY, #30 TAB 06/15/16 Montelukast Sodium* (Singulair*) 10 Mg Tablet, 10 MG PO QHS, #30 TAB 06/15/16 Cholecalciferol (Vitamin D3) 5,000 Unit Tablet, 5000 UNIT PO DAILY, TAB 06/15/16 Pyridoxine Hcl (Vitamin B6) 50 Mg Tab, 50 MG PO DAILY, TAB 06/15/16 Ranolazine* (Ranexa*) 1,000 Mg Tab.sr.12h, 1000 MG PO Q12, TAB 06/15/16 Atorvastatin* (Atorvastatin*) 80 Mg Tablet, 80 MG PO DAILY 02/02/14 [place]-3 Fatty Acids (Fish Oil) 500 Mg Capsule.dr, 1000 MG PO TID 07/19/13 Isosorbide Mononitrate* (Isosorbide Mononitrate*) 30 Mg Tab.er.24h, 90 MG PO DAILY, TAB 07/19/13 Aspirin (Aspirin) 81 Mg Tablet, 81 MG PO DAILY, 0 Refills 03/22/12 Discontinued Reported Medications Aspirin Ec (Aspir 81) 81 Mg Tablet.dr, 81 MG PO DAILY, #30 TAB 06/15/16 Pyridoxine Hcl* (Vitamin B-6*) 50 Mg Capsule, 100 MG PO DAILY 02/02/14 Furosemide* (Lasix*) 20 Mg Tablet, 20 MG PO Q48 PT TAKES LASIX 20 MG EVERY OTHER DAY. 02/02/14 Montelukast Sodium* (Montelukast Sodium*) 10 Mg Tablet, 10 MG PO DAILY, TAB 0 Refills 07/19/13 Ranolazine* (Ranexa*) 500 Mg Tabsr, 1000 MG PO BID PT TAKES 2 TABS BID 03/22/12 Ranitidine Hcl (Ranitidine Hcl) 150 Mg Capsule, 150 MG PO BID 03/22/12 Discontinued Scripts Amoxicillin/Potassium Clav (Amox-Clav 875-125 mg Tablet) 875-125 mg Tab, 1 TAB PO BID for 10 Days, #20 TAB Prov:MALAIKA JUAREZ PA-C 05/01/16 Follow-up Plan Please follow up with Dr. Brooks, Cardiology and your primary care provider as soon as possible. Primary Care Provider Sarika Aguirre (ANAIT) Pending Labs Laboratory Tests Test 11/30/16 05:10 White Blood Count 8.610^3/ul (4.8-10.8) Red Blood Count 4.7510^6/ul (4.70-6.10) Hemoglobin 14.2g/dl (14.0-18.0) Hematocrit 42.6% (42.0-52.0) Mean Corpuscular Volume 89.7fl (82.0-101.0) Mean Corpuscular Hemoglobin 29.9pg (29.0-33.0) Mean Corpuscular Hemoglobin Concent 33.3g/dl (32.0-37.0) Red Cell Distribution Width 13.6% (11.5-14.5) Platelet Count 01225^3/UL (140-415) Mean Platelet Volume 9.9fl (7.4-10.4) Neutrophils % 63.3% (39.0-77.0) Lymphocytes % 26.4% (15.0-51.0) Monocytes % 8.0% (0.0-11.0) Eosinophils % 1.6% (0.0-7.0) Basophils % 0.2% (0.0-2.0) Nucleated Red Blood Cells % 0.0/100WBC (0.0-0.0) Neutrophils # 5.410^3/ul (1.6-7.5) Lymphocytes # 2.310^3/ul (0.8-2.9) Monocytes # 0.710^3/ul (0.3-0.9) Eosinophils # 0.110^3/ul (0.0-0.5) Basophils # 0.010^3/ul (0.0-0.1) Nucleated Red Blood Cells # 0.010^3/ul (0.0-0.0) Sodium Level 140mmol/L (135-144) Potassium Level 4.4mmol/L (3.5-5.1) Chloride Level 109mmol/L (97-110) Carbon Dioxide Level 24mmol/L (21-31) Anion Gap 11 (8-16) Blood Urea Nitrogen 15mg/dl (7-20) Creatinine 0.94mg/dl (0.61-1.24) Glucose Level 89mg/dl (70-220) Calcium Level 9.1mg/dl (8.4-10.2) Phosphorus Level 4.5mg/dl (2.5-4.9) Magnesium Level 1.9mg/dl (1.7-2.5) PASCUAL FIERRO Nov 30, 2016 16:08
--- NOTE | 2016-12-01 14:06 | RADRPT ---
Vent Rate: 59 bpm RR Interval: 0 msec [place] Interval: 154 msec QRS Duration: 82 msec QT Interval: 422 msec QTC Interval: 417 msec P-R-T [place]: 69 - -26 - 58 degrees Sinus bradycardia with frequent premature ventricular complexes Low voltage QRS Cannot rule out Anteroseptal infarct , age undetermined Abnormal ECG Electronically Signed By: Remy Green [id number]
--- NOTE | 2016-12-01 14:08 | RADRPT ---
Vent Rate: 57 bpm RR Interval: 0 msec [place] Interval: 154 msec QRS Duration: 72 msec QT Interval: 434 msec QTC Interval: 422 msec P-R-T [place]: 64 - -23 - 39 degrees Sinus bradycardia Low voltage QRS Cannot rule out Anteroseptal infarct , age undetermined Abnormal ECG Electronically Signed By: Remy Green [id number]
--- NOTE | 2016-12-01 14:11 | RADRPT ---
Vent Rate: 57 bpm RR Interval: 0 msec [place] Interval: 158 msec QRS Duration: 72 msec QT Interval: 428 msec QTC Interval: 416 msec P-R-T [place]: 69 - -31 - 54 degrees Sinus bradycardia Left axis deviation Low voltage QRS Cannot rule out Anteroseptal infarct , age undetermined Abnormal ECG Electronically Signed By: Remy Green [id number]
== END 2016-11-30 09:55 | disposition home or self-care (01) | DRG 247 ==
LOC: E/R 19:09 → ICU 22:34
PROVIDERS: ADMIT Family Medicine; ATTEND Family Medicine
PROC: B211YZZ Fluoroscopy of Multiple Coronary Arteries using Other Contrast (ICD-10-PCS; 2016-11-29)
PROC: 027034Z Dilation of Coronary Artery, One Artery with Drug-eluting Intraluminal Device, Percutaneous Approach (ICD-10-PCS; principal; 2016-11-29 12:00)
PROC: 02703ZZ Dilation of Coronary Artery, One Artery, Percutaneous Approach (ICD-10-PCS; 2016-11-29 12:00)
PROC: 4A023N7 Measurement of Cardiac Sampling and Pressure, Left Heart, Percutaneous Approach (ICD-10-PCS; 2016-11-29 12:00)
DX: T82.855A Stenosis of coronary artery stent, initial encounter (principal); I42.9 Cardiomyopathy, unspecified; J44.9 Chronic obstructive pulmonary disease, unspecified; I25.110 Atherosclerotic heart disease of native coronary artery with unstable angina pectoris; I10 Essential (primary) hypertension; I49.3 Ventricular premature depolarization; N40.0 Benign prostatic hyperplasia without lower urinary tract symptoms; E78.5 Hyperlipidemia, unspecified; E05.90 Thyrotoxicosis, unspecified without thyrotoxic crisis or storm; Y83.8 Other surgical procedures as the cause of abnormal reaction of the patient, or of later complication, without mention of misadventure at the time of the procedure; K21.9 Gastro-esophageal reflux disease without esophagitis; I25.2 Old myocardial infarction; Y92.019 Unspecified place in single-family (private) house as the place of occurrence of the external cause; Z79.82 Long term (current) use of aspirin; Z79.02 Long term (current) use of antithrombotics/antiplatelets; Z87.891 Personal history of nicotine dependence
CPT/HCPCS: 36415; 71010; 80048; 80053; 80061; 80069; 82550; 82553; 83036; 83735; 83880; 84100; 84439; 84443; 84481; 84484; 85025; 92920; 93005; 93306; 93458; 96365; 96366; 96375; C1725; C1887; C9113; C9600; J1644; J1650; J2250; J2270; J2405; J3010; J7030; Q9967

== ENCOUNTER 2017-07-11 14:01 | Observation (INO) | END 2017-07-13 18:00 | disposition home or self-care (01) ==

== ENCOUNTER → 2017-11-23 | Outpatient (CLI) | END | disposition home or self-care (01) ==

== ENCOUNTER 2018-06-26 09:17 | Inpatient (IN) | payer MEDICARE, OTHER ==
[~2018-06-26] VITALS: Ht 160 cm; Wt 83.7 kg
[~2018-06-26 09:17] MED LIST changes: +ADV25050 INHALATION; -AMLO2.5T2 PO; +AMLO2.5T78 PO; -AMOX1TAB10 PO; -ASPI-535 PO; -ASPI-650 PO; -ATOR80TA75 PO; +BENA10TA4 PO; -BENA10TA48 PO; -CARV6.25 PO; +CARV6.2579 PO; -CHOL500010 PO; +CLON0.5T14 PO; +CRES20 PO; -FURO-110 PO; -ISOS30TA5 PO; +ISOS60TA PO; -LAS20 PO; +METH10TA5 PO; -MONT10TA24 PO; +OMEG1CAP2 PO; -OMEG500C PO; -PROP50TA2 PO; -PYRI50CA PO; -PYRI50TA80 PO; -RANI150C11 PO; +RANI150T5 PO; -RANO10002 PO
[2018-06-26] MEDS ORDERED: NITROGLYCERIN 2% 1 GM OINT PKT TD STA (09:22)
[2018-06-26] MEDS: NITROGLYCERIN (SL) 0.4 MG TAB SL PRN ×4 (09:39→18:48)
[2018-06-26] MEDS ORDERED: ONDANSETRON 4 MG INJ IV STA (09:40)
[2018-06-26] MEDS ORDERED: morphine 4 MG/ML VIAL IV STA (09:40)
[2018-06-26] MEDS ORDERED: ONDANSETRON 4 MG INJ ONE (09:41)
[2018-06-26] MEDS ORDERED: morphine 4 MG/ML VIAL ONE (09:42)
[2018-06-26] MEDS ORDERED: HYDROmorphONE 2 MG/ML SYG IV STA (09:56)
[2018-06-26] MEDS ORDERED: SOD CHLORIDE 0.9% 1,000 ML IV STA (10:12)
[2018-06-26] MEDS ORDERED: RANO10002 PO (10:15)
[2018-06-26] MEDS ORDERED: OMEG-158 PO (10:15)
[2018-06-26] MEDS ORDERED: PYRI50TA15 PO (10:15)
[2018-06-26] MEDS ORDERED: BENA10TA4 PO (10:16)
[2018-06-26] MEDS ORDERED: ERGO500013 PO (10:16)
[2018-06-26] MEDS ORDERED: ASPI81TA52 PO (10:17)
[2018-06-26] MEDS ORDERED: ISOS30TA67 PO (10:17)
[2018-06-26] MEDS ORDERED: CLON0.5T14 PO (10:19)
[2018-06-26] MEDS ORDERED: FURO20TA3 PO (10:19)
[2018-06-26] MEDS ORDERED: PROP50TA2 PO (10:19)
[2018-06-26] MEDS ORDERED: HYDR-3980 PO (10:20)
[2018-06-26] MEDS ORDERED: IBUP-1542 PO (10:21)
[2018-06-26] MEDS ORDERED: OLOP2.5D5 BOTH EYES (10:22)
[2018-06-26] MEDS ORDERED: SACU1TAB PO (10:29)
[2018-06-26] MEDS ORDERED: ONDANSETRON 4 MG INJ IV PRN (12:00)
[2018-06-26] MEDS ORDERED: ACETAMINOPHEN 325 MG TAB PO PRN ×2 (12:00→16:30)
--- NOTE | 2018-06-26 12:23 | ERD ---
ER Documentation Chief Complaint Chief Complaint mid sternal chest pain radiates to left arm with numbness on LT arm HPI Patient is a 67-year-old male with hypertension and coronary disease who presents with chest pain. The patient was brought in by ambulance. He was given aspirin and nitroglycerin by paramedics. He said that his pain started at 4:30 AM. The pain comes and goes. It is midsternal and he says "it hurts in my heart". He does have a primary doctor and his catering staff member is Dr. Brooks. He tells me that he has 14 stents. ROS All systems reviewed and are negative except as per history of present illness. Medications Home Meds Reported Medications Sacubitril/Valsartan (Entresto 24 mg-26 mg Tablet) 1 Each Tablet, 1 EACH PO BID, TAB 06/26/18 Olopatadine HCl (Pazeo) 2.5 Ml Drops, 1 DRP BOTH EYES DAILY, BOTTLE 06/26/18 Ibuprofen* (Motrin*) 600 Mg Tab, 600 MG PO Q6H PRN for PAIN, TAB 06/26/18 Hydrocodone/Acetaminophen ([place] 10-325 Tablet) 1 Each Tablet, 1 EACH PO Q6 PRN for PAIN, TAB 06/26/18 Furosemide* (Furosemide*) 20 Mg Tablet, 20 MG PO EVERY OTHER DAY, #30 TAB 06/26/18 Clonazepam* (Clonazepam*) 0.5 Mg Tablet, 0.5 MG PO QHS, TAB 06/26/18 Propylthiouracil* (Propylthiouracil*) 50 Mg Tablet, 50 MG PO DAILY, TAB 06/26/18 Aspirin (Low Dose Aspirin) 81 Mg Tablet.dr, 81 MG PO DAILY, #30 TAB 06/26/18 Isosorbide Mononitrate* (Isosorbide Mononitrate*) 30 Mg Tab.er.24h, 90 MG PO DAILY, TAB.SA 06/26/18 Benazepril Hcl* (Benazepril Hcl*) 10 Mg Tablet, 10 MG PO BID, #60 TAB 06/26/18 Ergocalciferol (Vitamin D2) (VITAMIN D2) 50,000 Unit Capsule, 23082 UNIT PO EVERY TUESDAY, CAP 06/26/18 Pyridoxine Hcl (Vitamin B6) 50 Mg Tab, 50 MG PO DAILY, TAB 06/26/18 [place]-3/Dha/Epa/Fish Oil (FISH OIL 1,000 MG SOFTGEL) 1 Each Capsule, 1 EACH PO DAILY, CAP 06/26/18 Ranolazine* (Ranexa*) 1,000 Mg Tab.sr.12h, 1000 MG PO Q12, TAB 06/26/18 Ranitidine Hcl* (Ranitidine Hcl*) 150 Mg Tablet, 150 MG PO Q12, #60 TAB 07/11/17 Amlodipine Besylate* (Amlodipine Besylate*) 2.5 Mg Tablet, 2.5 MG PO DAILY, #30 TAB 07/11/17 Tamsulosin Hcl* (Tamsulosin Hcl*) 0.4 Mg Cap.er.24h, 0.4 MG PO HS, CAP 07/11/17 Carvedilol* (Carvedilol*) 6.25 Mg Tablet, 6.25 MG PO BID, #60 TAB 07/11/17 Clopidogrel Bisulfate (Clopidogrel) 75 Mg Tablet, 75 MG PO DAILY, #30 TAB 07/11/17 Montelukast Sodium* (Singulair*) 10 Mg Tablet, 10 MG PO QHS, #30 TAB 07/11/17 Rosuvastatin Calcium* (Crestor*) 20 Mg Tablet, 20 MG PO QHS, #30 TAB 07/11/17 Discontinued Reported Medications Clonazepam* (Clonazepam*) 0.5 Mg Tablet, 0.5 MG PO DAILY PRN for ANXIETY, TAB 07/11/17 Methimazole* (Methimazole*) 10 Mg Tablet, 10 MG PO DAILY, TAB 07/11/17 Benazepril Hcl* (Benazepril Hcl*) 10 Mg Tablet, 10 MG PO DAILY, #30 TAB 07/11/17 Isosorbide Mononitrate* (Isosorbide Mononitrate*) 60 Mg Tab.er.24h, 60 MG PO DAILY, TAB 07/11/17 Salmeterol Xinaf/Fluticasone* (Advair*) 250-50 Diskus Inhaler, 1 INH INHALATION BID, #1 INHALER 07/11/17 [place]-3 Acid Ethyl Esters (Lovaza) 1 Gm Capsule, 1 GM PO DAILY, CAP 07/11/17 Ranolazine* (Ranexa*) 500 Mg Tab.sr.12h, 500 MG PO Q12, TAB 07/11/17 Allergies Allergies: Coded Allergies: No Known Drug Allergies (Verified Allergy, Unknown, 06/26/18) PMhx/Soc History of Surgery: Yes (Appendectomy) Anesthesia Reaction: No Hx Neurological Disorder: No Hx Respiratory Disorders: No (hx of pnuemonia) Hx Cardiac Disorders: Yes (14 stents in heart artery) Hx Psychiatric Problems: No Hx Miscellaneous Medical Probl: No Hx Alcohol Use: Yes (socially) Hx Substance Use: No Hx Tobacco Use: Yes (x-smoker) Smoking Status: Former smoker FmHx Family History: No coronary disease Physical Exam Vitals Vital Signs Date Temp Pulse Resp B/P (MAP) Pulse Ox O2 O2 Flow FiO2 Time Delivery Rate 06/26/18 56 18 113/72 98 Room Air 11:00 (86) 06/26/18 97.8 60 18 115/67 98 09:26 (83) 06/26/18 58 18 138/68 99 Room Air 09:25 (91) Physical Exam Const: Moderate distress Head: Atraumatic Eyes: Normal Conjunctiva ENT: Normal External Ears, Nose and Mouth. Neck: Full range of motion. No meningismus. Resp: Clear to auscultation bilaterally Cardio: Regular rate and rhythm, no murmurs Abd: Soft, non tender, non distended. Normal bowel sounds Skin: No petechiae or rashes Back: No midline or flank tenderness Ext: No cyanosis, or edema Neur: Awake and alert Psych: Normal Mood and Affect Result Diagram: 06/26/18 0935 06/26/18 0935 Results 24 hrs Laboratory Tests Test 06/26/18 09:35 White Blood Count 8.0 10^3/ul Red Blood Count 4.62 10^6/ul Hemoglobin 14.2 g/dl Hematocrit 41.1 % Mean Corpuscular Volume 89.0 fl Mean Corpuscular Hemoglobin 30.7 pg Mean Corpuscular Hemoglobin Concent 34.5 g/dl Red Cell Distribution Width 12.6 % Platelet Count 182 10^3/UL Mean Platelet Volume 10.0 fl Immature Granulocytes % 0.300 % Neutrophils % 54.7 % Lymphocytes % 36.6 % Monocytes % 7.1 % Eosinophils % 1.0 % Basophils % 0.3 % Nucleated Red Blood Cells % 0.0 /100WBC Immature Granulocytes # 0.020 10^3/ul Neutrophils # 4.4 10^3/ul Lymphocytes # 2.9 10^3/ul Monocytes # 0.6 10^3/ul Eosinophils # 0.1 10^3/ul Basophils # 0.0 10^3/ul Nucleated Red Blood Cells # 0.0 10^3/ul Sodium Level 139 mmol/L Potassium Level 4.2 mmol/L Chloride Level 111 mmol/L Carbon Dioxide Level 19 mmol/L Anion Gap 9 Blood Urea Nitrogen 16 mg/dl Creatinine 0.82 mg/dl Est Glomerular Filtrat Rate mL/min > 60 mL/min Glucose Level 84 mg/dl Calcium Level 9.4 mg/dl Troponin I < 0.012 ng/ml Current Medications Medications Dose Sig/Lenora Start Time Status Last (Trade) Ordered Route PRN Stop Time Admin Dose Reason Admin 1 inch ONCE STAT 06/26/18 DC 06/26/18 Nitroglycerin TD 09:22 09:40 06/26/18 09:23 (Nitroglyceri n 2% Oint) 1 tab Q5M UP TO 3 06/26/18 06/26/18 Nitroglycerin DOSES PRN 09:30 09:39 SL .CHEST (Nitroglyceri PAIN n (Sl Tab) 0.4 Mg) Morphine 4 mg ONCE STAT 06/26/18 DC 06/26/18 Sulfate IV 09:40 09:42 (morphine) 06/26/18 09:41 Ondansetron 4 mg ONCE STAT 06/26/18 DC 06/26/18 HCl (Zofran IV 09:40 09:42 Inj) 06/26/18 09:41 Ondansetron 4 mg STK-MED 06/26/18 DC HCl (Zofran ONCE .ROUTE 09:41 Inj) 06/26/18 09:42 Morphine 4 mg STK-MED 06/26/18 DC Sulfate ONCE .ROUTE 09:42 (morphine) 06/26/18 09:43 1 mg ONCE STAT 06/26/18 DC 06/26/18 Hydromorphone IV 09:56 10:02 HCl 06/26/18 09:57 (Dilaudid) Sodium 1,000 ml @ Q1H STAT 06/26/18 DC 06/26/18 Chloride 1,000 mls/hr IV 10:12 10:16 06/26/18 11:11 Ondansetron 4 mg ER BRIDGE 06/26/18 HCl (Zofran PRN IV 12:00 Inj) NAUSEA/VOMITI 06/27/18 11:59 NG 650 mg ER BRIDGE 06/26/18 Acetaminophen PRN PO 12:00 (Tylenol .MILD PAIN 06/27/18 11:59 Tab) 1-3 OR TEMP Procedures/MDM EKG #1 read by me: Rate/Rhythm: Regular rate and rhythm at a normal rate Intervals: Normal Impression: No ST elevations or depressions EKG #2 read by me: Rate/Rhythm: Regular rate and rhythm at a normal rate Intervals: Normal Impression: No ST elevations or depressions Chest x-ray read by radiology. Patient is a 67-year-old male with cardiac risk factors who presents with chest pain. I am concerned for potential acute coronary syndrome. I doubt pneumonia, pneumothorax, pulmonary embolism, or aortic dissection. The patient has Mat received aspirin nitroglycerin and he was also given morphine and Dilaudid. I spoke with Dr. Brooks who will see the patient in consultation. I spoke with Dr. Mckenna for admission to a telemetry bed. Departure Diagnosis: Primary Impression: Chest pain Chest pain type: unspecified Qualified Codes: R07.9 - Chest pain, unspecified Condition: BRANDI Carcamo MD Jun 26, 2018 12:23
--- NOTE | 2018-06-26 14:26 | CONS ---
DATE OF ADMISSION: 06/26/2018 DATE OF CONSULTATION: 06/26/2018 TYPE OF CONSULTATION: Cardiology. REASON FOR CONSULTATION: Chest pain, assess for acute coronary syndrome. REQUESTING PHYSICIAN: Brandi Renee MD, from the emergency department. HISTORY OF PRESENT ILLNESS: Mr. Anguiano is a very pleasant 67-year-old male well known to myself as primary office patient and multiple prior admissions, history of prior PTCA and stent placement, most recently receiving a stent x1 to mid RCA and PTCA for in-stent restenosis in the LAD in 11/2016, with all stents being patent by catheterization in 07/2017, cardiomyopathy with decreased left ventricular ejection fraction, last only approximately 35%, hypertension, dyslipidemia, hypothyroidism, BPH, current bouts of congestive heart failure, who represents with complaints of substernal chest pain. The patient states that chest pain awoke him from sleep this morning at about 4:30 in the morning, described as pressure-like without radiation, mild associated shortness of breath. Upon arrival in the emergency department, temperature was 97.8, blood pressure 138/68, pulse 58, respiratory rate 18, satting 99%. The patient's labs revealed a white blood cell count of 8.0, hemoglobin 14.2, platelet count 182, sodium 139, potassium 4.2, creatinine 0.8, BUN 16, troponin negative. The patient underwent a chest x-ray revealing no acute disease, calcified aorta. The patient's electrocardiogram revealed sinus rhythm with nonspecific ST and T- wave abnormalities. The patient subsequently was treated with sublingual nitroglycerin and taken aspirin en route and now awaits admit to the floor after being additionally given morphine and Dilaudid. PAST MEDICAL HISTORY: As above in HPI. MEDICATIONS PRIOR TO ADMIT: 1. Flomax 0.4 mg daily. 2. Plavix 75 mg daily. 3. Norvasc 2.5 mg daily. 4. Benazepril 10 mg p.o. b.i.d. 5. Carvedilol 6.25 mg p.o. b.i.d. 6. Imdur 90 mg daily. 7. Fish oil. 8. Ranexa 1000 mg b.i.d. 9. Crestor 10 mg at bedtime. 10. Entresto 1 tablet b.i.d. 11. Aspirin 81 mg daily. 12. Klonopin 0.5 at bedtime. 13. [place] p.r.n. 14. Ibuprofen p.r.n. 15. Lasix ____. 16. Singulair 10 mg daily. 17 Zantac. 18. Propylthiouracil 50 mg daily. ALLERGIES: NO KNOWN DRUG ALLERGIES. SOCIAL HISTORY: Remote tobacco, quit times multiple years. Social EtOH. No illicit drug use. FAMILY HISTORY: No history of sudden cardiac or early CAD. REVIEW OF SYSTEMS: As above in HPI. CONSTITUTIONAL: No fevers, chills. PULMONARY: Intermittent shortness of breath. CARDIOVASCULAR: Chest pain. GASTROINTESTINAL: No vomiting. GENITOURINARY: No hematuria. MUSCULOSKELETAL: Degenerative joint disease. PSYCHIATRIC: Possible anxiety. NEUROLOGIC: No documented history of CVA. ENDOCRINE: No documented history of diabetes mellitus. PHYSICAL EXAMINATION: VITAL SIGNS: Temperature of 97.8, blood pressure 137/72, pulse 56, respiratory rate 18, sat 99%. GENERAL: The patient is alert, awake, in no acute distress. NECK: JVP is approximately 8 to 9 cm of water. CHEST: Fair air movement throughout. HEART: Bradycardic, regular rhythm, normal S1, S2, I/ systolic murmur, nondisplaced PMI. ABDOMEN: Positive bowel sounds, soft. EXTREMITIES: No significant pitting edema, 1+ pulses bilateral posterior tibial. LABORATORY DATA: As above in HPI with white blood cell count of 8, hemoglobin 14.2, platelet count 182. Sodium 139, potassium 4.2, creatinine of 0.8, BUN 16. Troponin negative. IMAGING STUDIES: As above in HPI. No further imaging studies for my review at this time. ELECTROCARDIOGRAM: As in HPI. No further electrocardiograms for my review at this time. IMPRESSION: 1. Chest pain, assess for acute coronary syndrome. 2. Coronary artery disease, status post multiple prior PTCA and stent placement procedures, most recently 11/2016 with all stents being patent by catheterization in 07/2017. 4. Hypertension. 5. Dyslipidemia. 6. Cardiomyopathy with decreased left ventricular ejection fraction. 7. History of hyperthyroidism on medications with subsequent hypothyroidism. 8. Benign prostatic hypertrophy. 9. Chronic obstructive pulmonary disease. RECOMMENDATIONS: 1. At this time, we would admit the patient to telemetry floor and complete a rule out myocardial infarction to ensure the patient's chest pain is not due to acute coronary syndrome such as acute myocardial infarction. 2. We would continue the patient's dual antiplatelet therapy for stent patency with aspirin and Plavix. 3. We will resume the patient's baseline carvedilol and benazepril for treatment of cardiomyopathy and blood pressure. 4. We will continue the patient's baseline carvedilol and Entresto not benazepril for treatment of cardiomyopathy. 5. We would continue the patient's antianginal medications with Ranexa, amlodipine, Norvasc and Imdur. 6. Continue the patient's current statin and adjust it according to a fasting lipid panel to be checked. 7. We will continue the patient's Lasix diuresis and follow volume status closely. 8. We will repeat the patient's 2D echo for reassessment of ejection fraction, wall motion, rule any major valve abnormalities. 9. We would check serial EKGs to assess for any ongoing changes; an EKG in the morning, EKG for any complaints of chest pain or change in rhythm. 10. Further treatment and work with the patient's ongoing chest pain will be made as the patient progresses through his inpatient hospital clinical course. Dictated By: CHAN BOWDEN/HILDA Conf#: [id number] DID#: [id number] CC: BRANDI RENEE MD; JAMES ACOSTA MD;*KevinCC* MTDD
[2018-06-26 15:48] VITALS: PULSE 64
[2018-06-26 16:00] VITALS: PULSE 64
[2018-06-26 16:21] VITALS: Ht 160 cm; Wt 83.7 kg
--- NOTE | 2018-06-26 16:25 | HP ---
Date/Time of Note Date/Time of Note DATE: 06/26/18 TIME: 16:11 Assessment/Plan VTE Prophylaxis SCD applied (from Nsg): Yes Pharmacological prophylaxis: NA/contraindicated Pharm contraindication: low risk/ambulating Lines/Catheters IV Catheter Type (from Nrsg): Saline Lock Assessment/Plan Hospital Course 1. Chest pain Rule out ACS Continue cardiac meds Cardiology consultation appreciated, follow-up recommendations 2. Hypertension Continue home meds 3. BPH Continue Flomax 4. Hypothyroidism Continue PTU 5. Obesity Lifestyle changes Prophylaxis: SCDs Result Diagram: 06/26/18 0935 06/26/18 0935 Results 24hrs Laboratory Tests Test 06/26/18 09:35 White Blood Count 8.0 Red Blood Count 4.62 L Hemoglobin 14.2 Hematocrit 41.1 L Mean Corpuscular Volume 89.0 Mean Corpuscular Hemoglobin 30.7 Mean Corpuscular Hemoglobin Concent 34.5 Red Cell Distribution Width 12.6 Platelet Count 182 Mean Platelet Volume 10.0 Immature Granulocytes % 0.300 Neutrophils % 54.7 Lymphocytes % 36.6 Monocytes % 7.1 Eosinophils % 1.0 Basophils % 0.3 Nucleated Red Blood Cells % 0.0 Immature Granulocytes # 0.020 Neutrophils # 4.4 Lymphocytes # 2.9 Monocytes # 0.6 Eosinophils # 0.1 Basophils # 0.0 Nucleated Red Blood Cells # 0.0 Sodium Level 139 Potassium Level 4.2 Chloride Level 111 H Carbon Dioxide Level 19 L Anion Gap 9 Blood Urea Nitrogen 16 Creatinine 0.82 Est Glomerular Filtrat Rate mL/min > 60 Glucose Level 84 Calcium Level 9.4 Troponin I < 0.012 HPI/ROS Admit Date/Time Admit Date/Time Jun 26, 2018 at 11:51 Hx of Present Illness Patient is a 67-year-old male with a history of coronary disease status post multiple PCI's, cardia myopathy with an EF of 35%, hypertension, does lipidemia, hypothyroidism, BPH, obesity who presents with pressure-like pain on the left side of the chest. Patient states the pain woke him up this morning, his chest pain has currently changed to a burning sensation on his lateral left chest. 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 Patient has no other complaints at this time. ROS Constitutional: no complaints, improved Eyes: no complaints ENT: no complaints Respiratory: no complaints Cardiovascular: chest pain Gastrointestinal: no complaints Genitourinary: no complaints Musculoskeletal: no complaints Skin: no complaints Neurologic: no complaints Endocrine: no complaints Lymphatic: no complaints Psychological: no complaints, nl mood/affect Immunologic: no complaints PMH/Family/Social Past Medical History As per HPI Medications Current Medications Nitroglycerin (Nitroglycerin (Sl Tab) 0.4 Mg) 1 tab Q5M UP TO 3 DOSES PRN SL .CHEST PAIN Last administered on 06/26/18at 09:39; Admin Dose 1 TAB; Start 06/26/18 at 09:30 Ondansetron HCl (Zofran Inj) 4 mg ER BRIDGE PRN IV NAUSEA/VOMITING; Start 06/26/18 at 12:00; Stop 06/27/18 at 11:59 Acetaminophen (Tylenol Tab) 650 mg ER BRIDGE PRN PO .MILD PAIN 1-3 OR TEMP; Start 06/26/18 at 12:00; Stop 06/27/18 at 11:59 Amlodipine Besylate (Norvasc) 2.5 mg DAILY PO ; Start 06/27/18 at 09:00 Aspirin (Halfprin) 81 mg DAILY PO ; Start 06/27/18 at 09:00 Carvedilol (Coreg) 6.25 mg BID PO ; Start 06/26/18 at 21:00 Furosemide (Lasix) 20 mg DAILY PO ; Start 06/27/18 at 09:00 Isosorbide Mononitrate (Imdur) 90 mg DAILY PO ; Start 06/27/18 at 09:00 Ranolazine (Ranexa) 1,000 mg Q12 PO ; Start 06/26/18 at 21:00 Sacubitril/ Valsartan (Entresto 24 Mg-26 Mg) 1 tab BID PO ; Start 06/26/18 at 21:00 Atorvastatin Calcium (Lipitor) 80 mg DAILY@21 PO ; Start 06/26/18 at 21:00 Coded Allergies: No Known Drug Allergies (Verified Allergy, Unknown, 06/26/18) Past Surgical History Past Surgical Hx: other Family History Significant Family History: heart disease Social History Alcohol Use: rarely Smoking Status: Former smoker Drug Use: none Exam/Review of Systems Vital Signs Vitals Vital Signs Date Temp Pulse Resp B/P (MAP) Pulse Ox O2 O2 Flow FiO2 Time Delivery Rate 06/26/18 58 16 115/74 98 Room Air 15:00 (88) 06/26/18 97.8 09:26 Exam Constitutional: alert, oriented Respiratory: clear to auscultation Cardiovascular: regular rate and rhythm Gastrointestinal: soft; No distended Musculoskeletal: nl extremities to inspection JAMES ACOSTA Jun 26, 2018 16:21
[2018-06-26 16:30] VITALS: BP 118/71; PULSE 59; RESP 18
[2018-06-26] MEDS ORDERED: ZOLPIDEM 5 MG TAB PO PRN (16:30)
[2018-06-26] MEDS ORDERED: morphine 2 MG INJ IV PRN (16:30)
[2018-06-26] MEDS ORDERED: HYDROCODONE/APAP (5/325) TAB PO PRN (16:30)
[2018-06-26] MEDS: CLOPIDOGREL 75 MG TAB PO SCH (16:30)
[2018-06-26] MEDS ORDERED: NACL 0.9% 3 ML SYG IV SCH (16:30)
[2018-06-26] MEDS ORDERED: HYDROmorphONE 1 MG/ML SYG IV PRN (17:00)
[2018-06-26] MEDS: ONDANSETRON 4 MG INJ IV PRN (18:21)
[2018-06-26 20:00] VITALS: PULSE 65
[2018-06-26 20:15] VITALS: BP 139/82; PULSE 60; RESP 20
[2018-06-26 20:59] VITALS: PULSE 72
[2018-06-26] MEDS: SACUBITRIL/VALSARTAN (24mg-26mg) TABLET PO SCH ×2 (21:00→21:04)
[2018-06-26] MEDS ORDERED: NON-FORMULARY/PATIENT OWN MED (Rosuvastatin Calcium* (Crestor*) 20 MG) PO SCH (21:00)
[2018-06-26] MEDS: MONTELUKAST 10 MG TAB PO SCH (21:00)
[2018-06-26] MEDS: BENAZEPRIL 10 MG TAB PO SCH (21:00)
[2018-06-26] MEDS: TAMSULOSIN (SR) 0.4 MG CAP PO SCH (21:04)
[2018-06-26] MEDS: clonAZEPAM 0.5 MG TAB PO SCH (21:04)
[2018-06-26] MEDS: RANOLAZINE (SR) 500 MG TAB PO SCH (21:05)
[2018-06-26] MEDS: ATORVASTATIN 40 MG TAB PO SCH (21:06)
[2018-06-26] MEDS: RANITIDINE 150 MG TAB PO SCH (21:06)
[2018-06-27] VITALS (12 sets, daily range): BP systolic 86–127; BP diastolic 50–68; PULSE 47–68; RESP 18–20
[2018-06-27] MEDS: SACUBITRIL/VALSARTAN (24mg-26mg) TABLET PO SCH ×3 (09:00→21:00)
[2018-06-27] MEDS ORDERED: OLOPATADINE HCL BOTH EYES SCH (09:00)
[2018-06-27] MEDS: FUROSEMIDE 20 MG TAB PO SCH (09:01)
[2018-06-27] MEDS: BENAZEPRIL 10 MG TAB PO SCH ×2 (09:02→21:00)
[2018-06-27] MEDS: RANOLAZINE (SR) 500 MG TAB PO SCH ×2 (09:02→22:42)
[2018-06-27] MEDS: AMLODIPINE 2.5 MG TAB PO SCH (09:02)
[2018-06-27] MEDS: CLOPIDOGREL 75 MG TAB PO SCH (09:02)
[2018-06-27] MEDS: PYRIDOXINE 50 MG TAB PO SCH (09:03)
[2018-06-27] MEDS: PROPYLTHIOURACIL 50 MG TAB PO SCH (09:03)
[2018-06-27] MEDS: FISH OIL 1,000 MG CAP PO SCH (09:03)
[2018-06-27] MEDS: RANITIDINE 150 MG TAB PO SCH ×2 (09:03→22:43)
[2018-06-27] MEDS: ISOSORBIDE MONONITRATE(SR)30 MG TAB PO SCH (09:03)
[2018-06-27] MEDS: ASPIRIN (EC) 81 MG TAB PO SCH (09:15)
[2018-06-27] MEDS: NITROGLYCERIN (SL) 0.4 MG TAB SL PRN (10:32)
--- NOTE | 2018-06-27 10:41 | CONS ---
Consult Date/Type/Reason Admit Date/Time Jun 26, 2018 at 11:51 Initial Consult Date Date/Time of Note DATE: 06/27/18 TIME: 10:39 Subjective NO acute events - awaiting [facility] tomorrow - NPO past midnight. ROS: No fever, no chills, no nausea, no vomiting, no diarrhea/constipation No recent weight changes No chest pain, no PND, no orthopnea - no new CP now No dizziness, blurred vision No thirst, no heat or cold intolerance Objective Vitals Vital Signs Date Temp Pulse Resp B/P (MAP) Pulse Ox O2 O2 Flow FiO2 Time Delivery Rate 06/27/18 58 08:00 06/27/18 97.9 18 127/68 95 Room Air 07:24 (87) Intake and Output 06/26/18 06/26/18 06/27/18 1515:00 23:00 07:00 IntakeIntake Total 360 ml 300 ml BalanceBalance 360 ml 300 ml Exam General: WN/WD/NAD, AOx 3 HEENT: Unicetric/atraumatic/EOMI (follow commands) NECK: JVD elevated, no thyromegaly Lymph: no lymphadenopathy HEART: regular with no S3, II/ systolic murmur at apex, PMI L LUNGS: Coarse sounds ABD: soft, NT, ND, +BS : Intact Neuro: non focal SKIN: chronic changes EXT: trace edema Results/Medications Result Diagram: 06/27/18 0456 06/27/18 0456 Results 24 hrs Laboratory Tests Test 06/26/18 16:18 06/26/18 18:14 06/26/18 19:11 06/26/18 22:05 Creatine Kinase 60 81 Creatine Kinase 1.0 1.3 Index Creatinine Kinase MB 0.57 1.04 (Mass) Troponin I < 0.012 < 0.012 < 0.012 Bedside Glucose 130 Test 06/27/18 04:56 White Blood Count 8.2 Red Blood Count 4.63 L Hemoglobin 14.4 Hematocrit 42.6 Mean Corpuscular 92.0 Volume Mean Corpuscular 31.1 Hemoglobin Mean Corpuscular 33.8 Hemoglobin Concent Red Cell 12.7 Distribution Width Platelet Count 167 Mean Platelet Volume 10.5 H Immature 0.100 Granulocytes % Neutrophils % 54.0 Lymphocytes % 35.6 Monocytes % 8.4 Eosinophils % 1.5 Basophils % 0.4 Nucleated Red Blood 0.0 Cells % Immature 0.010 Granulocytes # Neutrophils # 4.5 Lymphocytes # 2.9 Monocytes # 0.7 Eosinophils # 0.1 Basophils # 0.0 Nucleated Red Blood 0.0 Cells # Sodium Level 144 Potassium Level 4.7 Chloride Level 109 Carbon Dioxide Level 27 Anion Gap 8 Blood Urea Nitrogen 17 Creatinine 1.00 Est Glomerular > 60 Filtrat Rate mL/min Glucose Level 91 Hemoglobin A1c 5.4 Calcium Level 9.7 Phosphorus Level 4.3 Magnesium Level 2.0 Triglycerides Level 154 H Cholesterol Level 163 LDL Cholesterol, 90 Calculated HDL Cholesterol 42 Cholesterol/HDL 3.8 Ratio Home Meds Reported Medications Sacubitril/Valsartan (Entresto 24 mg-26 mg Tablet) 1 Each Tablet, 1 EACH PO BID, TAB 06/26/18 Olopatadine HCl ([place]) 2.5 Ml Drops, 1 DRP BOTH EYES DAILY, BOTTLE 06/26/18 Ibuprofen* (Motrin*) 600 Mg Tab, 600 MG PO Q6H PRN for PAIN, TAB 06/26/18 Hydrocodone/Acetaminophen ([place] 10-325 Tablet) 1 Each Tablet, 1 EACH PO Q6 PRN for PAIN, TAB 06/26/18 Furosemide* (Furosemide*) 20 Mg Tablet, 20 MG PO EVERY OTHER DAY, #30 TAB 06/26/18 Clonazepam* (Clonazepam*) 0.5 Mg Tablet, 0.5 MG PO QHS, TAB 06/26/18 Propylthiouracil* (Propylthiouracil*) 50 Mg Tablet, 50 MG PO DAILY, TAB 06/26/18 Aspirin (Low Dose Aspirin) 81 Mg Tablet.dr, 81 MG PO DAILY, #30 TAB 06/26/18 Isosorbide Mononitrate* (Isosorbide Mononitrate*) 30 Mg Tab.er.24h, 90 MG PO DAILY, TAB.SA 06/26/18 Benazepril Hcl* (Benazepril Hcl*) 10 Mg Tablet, 10 MG PO BID, #60 TAB 06/26/18 Ergocalciferol (Vitamin D2) (VITAMIN D2) 50,000 Unit Capsule, 36194 UNIT PO EVERY TUESDAY, CAP 06/26/18 Pyridoxine Hcl (Vitamin B6) 50 Mg Tab, 50 MG PO DAILY, TAB 06/26/18 [place]-3/Dha/Epa/Fish Oil (FISH OIL 1,000 MG SOFTGEL) 1 Each Capsule, 1 EACH PO DAILY, CAP 06/26/18 Ranolazine* (Ranexa*) 1,000 Mg Tab.sr.12h, 1000 MG PO Q12, TAB 06/26/18 Ranitidine Hcl* (Ranitidine Hcl*) 150 Mg Tablet, 150 MG PO Q12, #60 TAB 07/11/17 Amlodipine Besylate* (Amlodipine Besylate*) 2.5 Mg Tablet, 2.5 MG PO DAILY, #30 TAB 07/11/17 Tamsulosin Hcl* (Tamsulosin Hcl*) 0.4 Mg Cap.er.24h, 0.4 MG PO HS, CAP 07/11/17 Carvedilol* (Carvedilol*) 6.25 Mg Tablet, 6.25 MG PO BID, #60 TAB 07/11/17 Clopidogrel Bisulfate (Clopidogrel) 75 Mg Tablet, 75 MG PO DAILY, #30 TAB 07/11/17 Montelukast Sodium* (Singulair*) 10 Mg Tablet, 10 MG PO QHS, #30 TAB 07/11/17 Rosuvastatin Calcium* (Crestor*) 20 Mg Tablet, 20 MG PO QHS, #30 TAB 07/11/17 Discontinued Reported Medications Clonazepam* (Clonazepam*) 0.5 Mg Tablet, 0.5 MG PO DAILY PRN for ANXIETY, TAB 07/11/17 Methimazole* (Methimazole*) 10 Mg Tablet, 10 MG PO DAILY, TAB 07/11/17 Benazepril Hcl* (Benazepril Hcl*) 10 Mg Tablet, 10 MG PO DAILY, #30 TAB 07/11/17 Isosorbide Mononitrate* (Isosorbide Mononitrate*) 60 Mg Tab.er.24h, 60 MG PO DAILY, TAB 07/11/17 Salmeterol Xinaf/Fluticasone* (Advair*) 250-50 Diskus Inhaler, 1 INH INHALATION BID, #1 INHALER 07/11/17 [place]-3 Acid Ethyl Esters (Lovaza) 1 Gm Capsule, 1 GM PO DAILY, CAP 07/11/17 Ranolazine* (Ranexa*) 500 Mg Tab.sr.12h, 500 MG PO Q12, TAB 07/11/17 Medications Current Medications Nitroglycerin (Nitroglycerin (Sl Tab) 0.4 Mg) 1 tab Q5M UP TO 3 DOSES PRN SL . CHEST PAIN Last administered on 06/27/18 10:32; Admin Dose 1 TAB; Start 06/26/18 at 09:30 Amlodipine Besylate (Norvasc) 2.5 mg DAILY PO Last administered on 06/27/18 09:02; Admin Dose 2.5 MG; Start 06/27/18 at 09:00 Aspirin (Halfprin) 81 mg DAILY PO Last administered on 06/27/18 09:15; Admin Dose 81 MG; Start 06/27/18 at 09:00 Carvedilol (Coreg) 6.25 mg BID PO Last administered on 06/27/18 09:02; Admin Dose 6.25 MG; Start 06/26/18 at 21:00 Furosemide (Lasix) 20 mg DAILY PO Last administered on 06/27/18 09:01; Admin Dose 20 MG; Start 06/27/18 at 09:00 Isosorbide Mononitrate (Imdur) 90 mg DAILY PO Last administered on 06/27/18 09:03; Admin Dose 90 MG; Start 06/27/18 at 09:00 Ranolazine (Ranexa) 1,000 mg Q12 PO Last administered on 06/27/18 09:02; Admin Dose 1,000 MG; Start 06/26/18 at 21:00 Sacubitril/ Valsartan (Entresto 24 Mg-26 Mg) 1 tab BID PO Last administered on 06/27/18 09:03; Admin Dose 1 TAB; Start 06/26/18 at 21:00 Atorvastatin Calcium (Lipitor) 80 mg DAILY@21 PO Last administered on 06/26/18 21:06; Admin Dose 80 MG; Start 06/26/18 at 21:00 IV Flush (NS 3 ml) 3 ml PER PROTOCOL IV ; Start 06/26/18 at 16:30 Ondansetron HCl (Zofran Inj) 4 mg Q6H PRN IV NAUSEA/VOMITING Last administered on 06/26/18 18:21; Admin Dose 4 MG; Start 06/26/18 at 16:30 Acetaminophen (Tylenol Tab) 650 mg Q6H PRN PO .PAIN 1-3 OR TEMP; Start 06/26/18 at 16:30 Acetaminophen/ Hydrocodone Bitart ([place] (5/325)) 1 tab Q6H PRN PO .MOD PAIN 4- 6; Start 06/26/18 at 16:30 Zolpidem Tartrate (Ambien) 5 mg QHS PRN PO .INSOMNIA; Start 06/26/18 at 16:30 Benazepril HCl (Lotensin) 10 mg BID PO Last administered on 06/27/18 09:02; Admin Dose 10 MG; Start 06/26/18 at 21:00 Clonazepam (Klonopin) 0.5 mg QHS PO Last administered on 06/26/18 21:04; Admin Dose 0.5 MG; Start 06/26/18 at 21:00 Clopidogrel Bisulfate (plaVIX) 75 mg DAILY PO Last administered on 06/27/18 09:02; Admin Dose 75 MG; Start 06/26/18 at 16:30 Ergocalciferol (Drisdol) 50,000 unit Sa@0900 PO ; Start 07/01/18 at 09:00 Montelukast Sodium (Singulair) 10 mg QHS PO ; Start 06/26/18 at 21:00 Propylthiouracil (Ptu) 50 mg DAILY PO Last administered on 06/27/18 09:03; Admin Dose 50 MG; Start 06/27/18 at 09:00 Pyridoxine HCl (Vitamin B6) 50 mg DAILY PO Last administered on 06/27/18 09:03; Admin Dose 50 MG; Start 06/27/18 at 09:00 Ranitidine HCl (Zantac) 150 mg Q12 PO Last administered on 06/27/18 09:03; Admin Dose 150 MG; Start 06/26/18 at 21:00 Tamsulosin HCl (Flomax) 0.4 mg HS PO Last administered on 06/26/18 21:04; Admin Dose 0.4 MG; Start 06/26/18 at 21:00 Miscellaneous Information 1 drp DAILY BOTH EYES ; Start 06/27/18 at 09:00; Status UNV Fish Oil (Fish Oil) 1,000 mg DAILY PO Last administered on 06/27/18 09:03; Admin Dose 1,000 MG; Start 06/27/18 at 09:00 Hydromorphone HCl (Dilaudid) 1 mg Q3H PRN IV SEVERE PAIN LEVEL 7-10 Last administered on 06/26/18at 17:03; Admin Dose 1 MG; Start 06/26/18 at 17:00 Miscellaneous Information (*Order Clarification Bulletin) MEDICATION REQUIRES CLARIFICATI... Q8H XX Last administered on 06/27/18at 07:06; Admin Dose 1 EA; Start 06/27/18 at 06:30 Nitroglycerin (Nitroglycerin 0.4 Mg/Hr) 1 patch DAILY TRANSDERM ; Start 06/27/18 at 11:30 Assessment/Plan Hospital Course (Demo Recall) 1. Chest pain, assess for acute coronary syndrome - stable now - [facility] planned tomorrow. 2. Coronary artery disease, status post multiple prior PTCA and stent placement procedures, most recently 11/2016 with all stents being patent by catheterization in 07/2017. 4. Hypertension - BP well controlled. 5. Dyslipidemia. 6. Cardiomyopathy with decreased left ventricular ejection fraction - will monitor post [facility]. 7. History of hyperthyroidism on medications with subsequent hypothyroidism - treated. 8. Benign prostatic hypertrophy. 9. Chronic obstructive pulmonary disease- mild SOB, no wheezing. SHERINE ALEXANDER MD Jun 27, 2018 10:41
[2018-06-27] MEDS: NITROGLYCERIN 0.2 MG/HR PATCH TRANSDERM SCH (10:54)
[2018-06-27] MEDS ORDERED: NITROGLYCERIN 0.4 MG/HR PATCH TRANSDERM SCH (11:00)
[2018-06-27] MEDS: morphine 2 MG INJ IV PRN (14:35)
--- NOTE | 2018-06-27 14:42 | RADRPT ---
Echocardiogram Report Patient Name: PAMELA HARMANPatient ID: [id number] : 1950 (68y )Study Date: 06/26/2018 2:27:18 PM Gender: MAccession #: [id number] Tech: Aydin Deshpande [facility] Location: [facility] Ref.Physician: CHAN BROOKS Height(Cm): BSA: Weight(Kg): Quality: AdequateAccount #: Procedures: Echocardiographic Report: Transthoracic echocardiogram with complete 2D, M-Mode, and doppler examination. Indications: Chest Pain, and Congestive Heart Failure. Measurements: 2D/M Mode Doppler Measurement Value Normal Range Measurement Value Normal Range LVIDd 2D 5.5 [ 4.2 - 5.8 ] cm CESAR VTI 1.1 [ 2.0 - 4.0 ] cm2 LVIDs 2D 3.7 [ 2.5 - 4.0 ] cm AV Mean Jose 1.7 [ 70.0 - 90.0 ] cm/sec LVPWd 2D 1.0 [ 0.6 - 1.0 ] cm AV Mean PG 13.0 [ 2.0 - 4.0 ] mmHg IVSd 2D 1.0 [ 0.6 - 1.0 ] cm AV VTI 56.8 cm AoR Diam 2D 2.5 [ 2.6 - 3.4 ] cm LVOT Mean Jose 0.6 [ 60.0 - 80.0 ] cm/sec EDV 2D 149.0 [ 62.0 - 150.0 ] ml LVOT Mean PG 2.0 [ 1.0 - 3.0 ] mmHg ESV 2D 56.6 [ 21.0 - 61.0 ] ml LVOT Peak Jose 1.0 [ 70.0 - 110.0 ] cm/sec EF 2D 62.0 [ 52.0 - 72.0 ] percent LVOT Peak PG 4.0 [ 2.0 - 6.0 ] mmHg LA Dimen 2D 3.4 [ 3.0 - 4.0 ] cm LVOT VTI 21.8 [ 20.0 - 30.0 ] cm LVOT Diam 1.9 [ 2.3 - 2.9 ] cm MV E Peak Jose 0.9 [ 60.0 - 130.0 ] cm/sec MV A Peak Jose 0.7 [ 100.0 - 120.0 ] cm/sec MV E/A 1.2 [ 0.8 - 1.5 ] ratio MV Decel Time 197 [ 104 - 258 ] msec Lat E` Jose 0.1 [ 10.0 - 15.0 ] cm/sec Lateral E/E` 8.9 [ 1.0 - 2.0 ] ratio MV E/A 1.2 [ 0.8 - 1.5 ] ratio TR Peak Jose 2.4 [ 100.0 - 280.0 ] cm/sec TR Peak PG 24.0 mmHg Findings: Left Ventricle: Normal left ventricular cavity size. Normal left ventricular wall thickness. Mild global left ventricular systolic dysfunction. Ejection fraction is visually estimated at 35-40 %. Tissue Doppler/Mitral Doppler indices are consistent with pseudonormalization with mildly elevated left atrial pressure (Stage II diastolic dysfunction). These segments of the LV are hypokinetic mid anterior segment, apical anterior segment and apex. Right Ventricle: Normal right ventricular size. Normal right ventricular systolic function. Left Atrium: The left atrium is normal in size. Right Atrium: The right atrium is normal in size. Mitral Valve: Mild mitral leaflet calcification. Mild mitral annular calcification. Trace mitral regurgitation. Aortic Valve: Mild to moderate aortic stenosis. Aortic valve Max velocity 2.55 m/sec. Max PG 26.00 mmHg. Mean PG 13.00 mmHg. Aortic valve area 1.09 cm2. Aortic cusps appear moderately calcified. Tricuspid Valve: Normal appearance of the tricuspid valve. Estimated peak PA systolic pressure 27 mmHg. There is mild tricuspid regurgitation. Pericardium: Normal pericardium with no significant pericardial effusion. Aorta: Normal aortic root. IVC: Normal size and normal respiratory collapse consistent with normal right atrial pressure. Conclusions: Normal left ventricular cavity size. Normal left ventricular wall thickness. Mild global left ventricular systolic dysfunction. Ejection fraction is visually estimated at 35-40 %. Tissue Doppler/Mitral Doppler indices are consistent with pseudonormalization with mildly elevated left atrial pressure (Stage II diastolic dysfunction). These segments of the LV are hypokinetic mid anterior segment, apical anterior segment and apex. Mild mitral leaflet calcification. Mild mitral annular calcification. Trace mitral regurgitation. Mild to moderate aortic stenosis. Aortic valve Max velocity 2.55 m/sec. Max PG 26.00 mmHg. Mean PG 13.00 mmHg. Aortic valve area 1.09 cm2. Aortic cusps appear moderately calcified. Normal appearance of the tricuspid valve. Estimated peak PA systolic pressure 27 mmHg. There is mild tricuspid regurgitation. Electronically Signed By: Chan Brooks 2018-06-27 14:41:11 PDT
--- NOTE | 2018-06-27 15:10 | PN ---
Date/Time of Note Date/Time of Note DATE: 06/27/18 TIME: 15:09 Assessment/Plan VTE Prophylaxis Risk score (from Ns)>0 risk: 3 SCD applied (from Ns): Yes Pharmacological prophylaxis: NA/contraindicated Pharm contraindication: low risk/ambulating Lines/Catheters IV Catheter Type (from Nrsg): Saline Lock Urinary Cath still in place: No Assessment/Plan Hospital Course 1. Chest pain with a history of coronary disease Patient has had multiple stents in the past No evidence of ACS the patient continues to report chest pain Cardiology consultation appreciated, plan for heart cath tomorrow Nitro patch and morphine Continue cardiac meds 2. Hypertension Continue home meds 3. BPH Continue Flomax 4. Hypothyroidism Continue PTU 5. Obesity Lifestyle changes Prophylaxis: SCDs Result Diagram: 06/27/18 0456 06/27/18 0456 Results 24hrs Laboratory Tests Test 06/26/18 16:18 06/26/18 18:14 06/26/18 19:11 06/26/18 22:05 Creatine Kinase 60 81 Creatine Kinase 1.0 1.3 Index Creatinine Kinase MB 0.57 1.04 (Mass) Troponin I < 0.012 < 0.012 < 0.012 Bedside Glucose 130 Test 06/27/18 04:56 White Blood Count 8.2 Red Blood Count 4.63 L Hemoglobin 14.4 Hematocrit 42.6 Mean Corpuscular 92.0 Volume Mean Corpuscular 31.1 Hemoglobin Mean Corpuscular 33.8 Hemoglobin Concent Red Cell 12.7 Distribution Width Platelet Count 167 Mean Platelet Volume 10.5 H Immature 0.100 Granulocytes % Neutrophils % 54.0 Lymphocytes % 35.6 Monocytes % 8.4 Eosinophils % 1.5 Basophils % 0.4 Nucleated Red Blood 0.0 Cells % Immature 0.010 Granulocytes # Neutrophils # 4.5 Lymphocytes # 2.9 Monocytes # 0.7 Eosinophils # 0.1 Basophils # 0.0 Nucleated Red Blood 0.0 Cells # Sodium Level 144 Potassium Level 4.7 Chloride Level 109 Carbon Dioxide Level 27 Anion Gap 8 Blood Urea Nitrogen 17 Creatinine 1.00 Est Glomerular > 60 Filtrat Rate mL/min Glucose Level 91 Hemoglobin A1c 5.4 Calcium Level 9.7 Phosphorus Level 4.3 Magnesium Level 2.0 Triglycerides Level 154 H Cholesterol Level 163 LDL Cholesterol, 90 Calculated HDL Cholesterol 42 Cholesterol/HDL 3.8 Ratio Subjective 24 Hr Interval Summary Cardiovascular: chest pain Exam/Review of Systems Exam Vitals Vital Signs Date Temp Pulse Resp B/P (MAP) Pulse Ox O2 O2 Flow FiO2 Time Delivery Rate 06/27/18 98.7 55 18 102/58 94 Room Air 12:00 (73) Intake and Output 06/26/18 06/26/18 06/27/18 1515:00 23:00 07:00 IntakeIntake Total 360 ml 300 ml BalanceBalance 360 ml 300 ml Constitutional: alert, oriented Respiratory: clear to auscultation Cardiovascular: regular rate and rhythm Gastrointestinal: soft; No distended Musculoskeletal: nl extremities to inspection Results Results 24hrs Laboratory Tests Test 06/26/18 16:18 06/26/18 18:14 06/26/18 19:11 06/26/18 22:05 Creatine Kinase 60 81 Creatine Kinase 1.0 1.3 Index Creatinine Kinase MB 0.57 1.04 (Mass) Troponin I < 0.012 < 0.012 < 0.012 Bedside Glucose 130 Test 06/27/18 04:56 White Blood Count 8.2 Red Blood Count 4.63 L Hemoglobin 14.4 Hematocrit 42.6 Mean Corpuscular 92.0 Volume Mean Corpuscular 31.1 Hemoglobin Mean Corpuscular 33.8 Hemoglobin Concent Red Cell 12.7 Distribution Width Platelet Count 167 Mean Platelet Volume 10.5 H Immature 0.100 Granulocytes % Neutrophils % 54.0 Lymphocytes % 35.6 Monocytes % 8.4 Eosinophils % 1.5 Basophils % 0.4 Nucleated Red Blood 0.0 Cells % Immature 0.010 Granulocytes # Neutrophils # 4.5 Lymphocytes # 2.9 Monocytes # 0.7 Eosinophils # 0.1 Basophils # 0.0 Nucleated Red Blood 0.0 Cells # Sodium Level 144 Potassium Level 4.7 Chloride Level 109 Carbon Dioxide Level 27 Anion Gap 8 Blood Urea Nitrogen 17 Creatinine 1.00 Est Glomerular > 60 Filtrat Rate mL/min Glucose Level 91 Hemoglobin A1c 5.4 Calcium Level 9.7 Phosphorus Level 4.3 Magnesium Level 2.0 Triglycerides Level 154 H Cholesterol Level 163 LDL Cholesterol, 90 Calculated HDL Cholesterol 42 Cholesterol/HDL 3.8 Ratio Medications Medication Current Medications Nitroglycerin (Nitroglycerin (Sl Tab) 0.4 Mg) 1 tab Q5M UP TO 3 DOSES PRN SL .CHEST PAIN Last administered on 06/27/18at 10:32; Admin Dose 1 TAB; Start 06/26/18 at 09:30 Amlodipine Besylate (Norvasc) 2.5 mg DAILY PO Last administered on 06/27/18 09:02; Admin Dose 2.5 MG; Start 06/27/18 at 09:00 Aspirin (Halfprin) 81 mg DAILY PO Last administered on 06/27/18 09:15; Admin Dose 81 MG; Start 06/27/18 at 09:00 Carvedilol (Coreg) 6.25 mg BID PO Last administered on 06/27/18 09:02; Admin Dose 6.25 MG; Start 06/26/18 at 21:00 Furosemide (Lasix) 20 mg DAILY PO Last administered on 06/27/18 09:01; Admin Dose 20 MG; Start 06/27/18 at 09:00 Isosorbide Mononitrate (Imdur) 90 mg DAILY PO Last administered on 06/27/18 09:03; Admin Dose 90 MG; Start 06/27/18 at 09:00 Ranolazine (Ranexa) 1,000 mg Q12 PO Last administered on 06/27/18 09:02; Admin Dose 1,000 MG; Start 06/26/18 at 21:00 Sacubitril/ Valsartan (Entresto 24 Mg-26 Mg) 1 tab BID PO Last administered on 06/27/18 09:03; Admin Dose 1 TAB; Start 06/26/18 at 21:00 Atorvastatin Calcium (Lipitor) 80 mg DAILY@21 PO Last administered on 06/26/18 21:06; Admin Dose 80 MG; Start 06/26/18 at 21:00 IV Flush (NS 3 ml) 3 ml PER PROTOCOL IV ; Start 06/26/18 at 16:30 Ondansetron HCl (Zofran Inj) 4 mg Q6H PRN IV NAUSEA/VOMITING Last administered on 06/26/18 18:21; Admin Dose 4 MG; Start 06/26/18 at 16:30 Acetaminophen (Tylenol Tab) 650 mg Q6H PRN PO .PAIN 1-3 OR TEMP; Start 06/26/18 at 16:30 Acetaminophen/ Hydrocodone Bitart ([place] (5/325)) 1 tab Q6H PRN PO .MOD PAIN 4- 6; Start 06/26/18 at 16:30 Zolpidem Tartrate (Ambien) 5 mg QHS PRN PO .INSOMNIA; Start 06/26/18 at 16:30 Benazepril HCl (Lotensin) 10 mg BID PO Last administered on 06/27/18 09:02; Admin Dose 10 MG; Start 06/26/18 at 21:00 Clonazepam (Klonopin) 0.5 mg QHS PO Last administered on 06/26/18 21:04; Admin Dose 0.5 MG; Start 06/26/18 at 21:00 Clopidogrel Bisulfate (plaVIX) 75 mg DAILY PO Last administered on 06/27/18 09:02; Admin Dose 75 MG; Start 06/26/18 at 16:30 Ergocalciferol (Drisdol) 50,000 unit Sa@0900 PO ; Start 07/01/18 at 09:00 Montelukast Sodium (Singulair) 10 mg QHS PO ; Start 06/26/18 at 21:00 Propylthiouracil (Ptu) 50 mg DAILY PO Last administered on 06/27/18 09:03; Admin Dose 50 MG; Start 06/27/18 at 09:00 Pyridoxine HCl (Vitamin B6) 50 mg DAILY PO Last administered on 06/27/18 09:03; Admin Dose 50 MG; Start 06/27/18 at 09:00 Ranitidine HCl (Zantac) 150 mg Q12 PO Last administered on 06/27/18 09:03; Admin Dose 150 MG; Start 06/26/18 at 21:00 Tamsulosin HCl (Flomax) 0.4 mg HS PO Last administered on 06/26/18 21:04; Admin Dose 0.4 MG; Start 06/26/18 at 21:00 Fish Oil (Fish Oil) 1,000 mg DAILY PO Last administered on 06/27/18 09:03; Admin Dose 1,000 MG; Start 06/27/18 at 09:00 Nitroglycerin (Nitroglycerin 0.2 Mg/Hr) 2 patch DAILY TRANSDERM Last administered on 06/27/18 10:54; Admin Dose 2 PATCH; Start 06/27/18 at 10:39 Morphine Sulfate (morphine) 2 mg Q3 PRN IV SEVERE PAIN LEVEL 7-10 Last administered on 06/27/18 14:35; Admin Dose 2 MG; Start 06/27/18 at 14:30 [facility]opatadine [facility] ([facility] 1 drop DAILY BOTH EYES ; Start 06/28/18 at 09:00 JAMES ACOSTA Jun 27, 2018 15:10
--- NOTE | 2018-06-27 16:46 | RADRPT ---
Vent Rate: 57 bpm RR Interval: 1048 msec ND Interval: 160 msec QRS Duration: 78 msec QT Interval: 464 msec QTC Interval: 453 msec P-R-T [place]: 67 - -28 - 12 degrees Sinus rhythm...normal P axis, V-rate 50- 99 Multiple ventricular premature complexes...V complexes w/ short R-R intervls Probable left atrial enlargement...P >50mS, <-0.10mV V1 Inferior infarct, old...Q >35mS, II III aVF Anterior infarct, old...Q >40mS, abnormal ST-T, V2-V5 Electronically Signed By: Angel Mckeon
--- NOTE | 2018-06-27 16:48 | RADRPT ---
Vent Rate: 57 bpm RR Interval: 0 msec IN Interval: 158 msec QRS Duration: 76 msec QT Interval: 448 msec QTC Interval: 436 msec P-R-T [place]: 66 - -7 - 31 degrees Sinus bradycardia with occasional premature ventricular complexes Low voltage QRS Cannot rule out Anteroseptal infarct , age undetermined Abnormal ECG Electronically Signed By: Angel Mckeon
[2018-06-27] MEDS: MONTELUKAST 10 MG TAB PO SCH (21:00)
[2018-06-27] MEDS: clonAZEPAM 0.5 MG TAB PO SCH (21:00)
[2018-06-27] MEDS: ATORVASTATIN 40 MG TAB PO SCH (22:41)
[2018-06-27] MEDS: TAMSULOSIN (SR) 0.4 MG CAP PO SCH (22:42)
[2018-06-28] VITALS (42 sets, daily range): BP systolic 93–178; BP diastolic 45–97; PULSE 50–86; RESP 13–36
[2018-06-28] MEDS ORDERED: HEPARIN 1000 UNITS/ML 10 ML INJ ONE ×2 (08:41→12:05)
[2018-06-28] MEDS ORDERED: LIDOCAINE 1% (MDV) 20 ML INJ ONE (08:42)
[2018-06-28] MEDS ORDERED: MIDAZOLAM 1 MG/ML 2 ML INJ ONE ×2 (08:42→12:05)
[2018-06-28] MEDS ORDERED: VERAPAMIL 5 MG INJ ONE ×2 (08:42→12:06)
[2018-06-28] MEDS ORDERED: FENTAnyl 50 MCG/ML VIAL ONE ×2 (08:42→12:05)
[2018-06-28] MEDS ORDERED: NITROGLYCERIN (IC) 100 MCG/ML INJ ONE ×2 (08:42→12:06)
[2018-06-28] MEDS ORDERED: IODIXANOL LOCM 100 ML BTL ONE ×2 (08:42→13:27)
[2018-06-28] MEDS ORDERED: OLOPATADINE 0.2% (ONCE A DAY) OPHTH DROP 2.5 ML BOTH EYES SCH (09:00)
[2018-06-28] MEDS: FISH OIL 1,000 MG CAP PO SCH (09:00)
[2018-06-28] MEDS: ASPIRIN (EC) 81 MG TAB PO SCH (09:02)
[2018-06-28] MEDS: RANOLAZINE (SR) 500 MG TAB PO SCH ×2 (09:02→21:52)
[2018-06-28] MEDS: PROPYLTHIOURACIL 50 MG TAB PO SCH (09:03)
[2018-06-28] MEDS: RANITIDINE 150 MG TAB PO SCH ×2 (09:03→20:59)
[2018-06-28] MEDS: SACUBITRIL/VALSARTAN (24mg-26mg) TABLET PO SCH ×2 (09:03→20:59)
[2018-06-28] MEDS: BENAZEPRIL 10 MG TAB PO SCH (09:03)
[2018-06-28] MEDS: ISOSORBIDE MONONITRATE(SR)30 MG TAB PO SCH (09:03)
[2018-06-28] MEDS: CLOPIDOGREL 75 MG TAB PO SCH (09:03)
[2018-06-28] MEDS: FUROSEMIDE 20 MG TAB PO SCH (09:03)
[2018-06-28] MEDS: PYRIDOXINE 50 MG TAB PO SCH (09:04)
[2018-06-28] MEDS: AMLODIPINE 2.5 MG TAB PO SCH (09:04)
[2018-06-28] MEDS: NITROGLYCERIN 0.2 MG/HR PATCH TRANSDERM SCH (09:05)
[2018-06-28] MEDS: ONDANSETRON 4 MG INJ IV PRN (09:08)
[2018-06-28] MEDS: morphine 2 MG INJ IV PRN (09:08)
[2018-06-28] MEDS ORDERED: BIVALIRUDIN 250MG /NS 50 ML 50 ML IVPB ONE (09:50)
[2018-06-28] MEDS ORDERED: IOHEXOL 350MG/ML 50 ML BTL ONE ×2 (09:50→13:27)
[2018-06-28] MEDS ORDERED: SOD CHLORIDE 0.9% 500 ML ONE (09:50)
[2018-06-28] MEDS ORDERED: TICAGRELOR 90 MG TABLET ONE (10:34)
[2018-06-28] MEDS ORDERED: ASPIRIN 81 MG TAB ONE (10:34)
[2018-06-28] MEDS ORDERED: ADENOSINE 30 ML ONE ×2 (13:27→13:32)
[2018-06-28] MEDS ORDERED: SOD CHLORIDE 0.9% 1,000 ML IV SCH (13:43)
--- NOTE | 2018-06-28 13:43 | SIPON ---
Date/Time of Note Date/Time of Note DATE: 06/28/18 TIME: 13:41 Operative Report Preoperative Diagnosis 1.angina Postoperative Diagnosis 1.obstructive cad Operation/Procedure Performed 1.LHC 2.PTCA/stent x 2 to LAD Mid 3.IVUS LMN Surgeon see signature line assistant prosecuting attorney 1.Philip Anesthesia: moderate sedation Estimated blood loss: minimal Transfusion Required none Specimen none Grafts/Implants none Complications none CHAN OTTO Jun 28, 2018 13:43
--- NOTE | 2018-06-28 13:59 | CONS ---
Assessment/Plan Assessment/Plan Hospital Course (Demo Recall) IMPRESSION: 1. Chest pain, assess for acute coronary syndrome. 2. Coronary artery disease, status post multiple prior PTCA and stent placement procedures, most recently 11/2016 with all stents being patent by catheterization in 07/2017. 4. Hypertension. 5. Dyslipidemia. 6. Cardiomyopathy with decreased left ventricular ejection fraction. 7. History of hyperthyroidism on medications with subsequent hypothyroidism. 8. Benign prostatic hypertrophy. 9. Chronic obstructive pulmonary disease. Recc: -Tele -serial ecg's -Continue asa/brilinta -Continue imdur/norvasc/ranexa -Continue entresto and will d/c benazepril as patient is on entresto -Continue statin -Contineu fish oil -[facility] today with possible PTCA/stent Consultation Date/Type/Reason Admit Date/Time Jun 28, 2018 at 09:36 Initial Consult Date 06/26/18 Type of Consult Cardiology Reason for Consultation angina Requesting Provider: JAMES ACOSTA Date/Time of Note DATE: 06/28/18 TIME: 13:46 Exam/Review of Systems Vital Signs Vitals Vital Signs Date Temp Pulse Resp B/P (MAP) Pulse Ox O2 O2 Flow FiO2 Time Delivery Rate 06/28/18 Room Air 11:30 06/28/18 64 08:27 06/28/18 98.7 20 130/68 97 07:18 (88) Intake and Output 06/27/18 06/27/18 06/28/18 1515:00 23:00 07:00 IntakeIntake Total 1000 ml 250 ml BalanceBalance 1000 ml 250 ml Exam Exam Review of Systems: CONSTITUTIONAL: No fevers, chills. PULMONARY: No sob CARDIOVASCULAR:chest pain GASTROINTESTINAL: No nausea/vomiting. GENITOURINARY: No hematuria/dysuria. MUSCULOSKELETAL: No myagias/arthalgias. PSYCHIATRIC: The patient denies depression. NEUROLOGIC: No weakness Constitutional: alert, oriented Psych: no complaints Head: normocephalic ENMT: mucosa pink and moist Neck: supple, jvd (9 cm water) Respiratory: diminished breath sounds Cardiovascular: regular rate and rhythm Gastrointestinal: soft, non-tender Musculoskeletal: muscle tone (normal) Extremities: edema (none) Neurological: other (No focal deficits) Labs Result Diagram: 06/28/18 0507 06/28/18 0507 Results 24hrs Laboratory Tests Test 06/28/18 05:07 White Blood Count 8.1 Red Blood Count 4.60 L Hemoglobin 14.0 Hematocrit 42.3 Mean Corpuscular Volume 92.0 Mean Corpuscular Hemoglobin 30.4 Mean Corpuscular Hemoglobin Concent 33.1 Red Cell Distribution Width 12.7 Platelet Count 166 Mean Platelet Volume 10.6 H Immature Granulocytes % 0.400 Neutrophils % 52.7 Lymphocytes % 37.4 Monocytes % 7.1 Eosinophils % 2.0 Basophils % 0.4 Nucleated Red Blood Cells % 0.0 Immature Granulocytes # 0.030 Neutrophils # 4.3 Lymphocytes # 3.0 H Monocytes # 0.6 Eosinophils # 0.2 Basophils # 0.0 Nucleated Red Blood Cells # 0.0 Prothrombin Time 14.7 Prothrombin Time Ratio 1.1 INR International Normalized Ratio 1.14 Activated Partial Thromboplast Time 30.7 Thrombin Time 15.6 Sodium Level 143 Potassium Level 4.5 Chloride Level 109 Carbon Dioxide Level 23 Anion Gap 11 Blood Urea Nitrogen 18 Creatinine 0.97 Est Glomerular Filtrat Rate mL/min > 60 Glucose Level 115 Calcium Level 8.8 Total Bilirubin 0.3 Direct Bilirubin 0.00 Indirect Bilirubin 0.3 Aspartate Amino Transf (AST/SGOT) 23 Alanine Aminotransferase (ALT/SGPT) 27 Alkaline Phosphatase 46 Total Protein 6.8 Albumin 4.0 Globulin 2.80 Albumin/Globulin Ratio 1.42 Medications Medications Current Medications Nitroglycerin (Nitroglycerin (Sl Tab) 0.4 Mg) 1 tab Q5M UP TO 3 DOSES PRN SL .CHEST PAIN Last administered on 06/27/18 10:32; Admin Dose 1 TAB; Start 06/26/18 at 09:30 Amlodipine Besylate (Norvasc) 2.5 mg DAILY PO Last administered on 06/28/18 09:04; Admin Dose 2.5 MG; Start 06/27/18 at 09:00 Aspirin (Halfprin) 81 mg DAILY PO Last administered on 06/28/18 09:02; Admin Dose 81 MG; Start 06/27/18 at 09:00 Carvedilol (Coreg) 6.25 mg BID PO Last administered on 06/28/18 09:04; Admin Dose 6.25 MG; Start 06/26/18 at 21:00 Furosemide (Lasix) 20 mg DAILY PO Last administered on 06/28/18 09:03; Admin Dose 20 MG; Start 06/27/18 at 09:00 Isosorbide Mononitrate (Imdur) 90 mg DAILY PO Last administered on 06/28/18 09:03; Admin Dose 90 MG; Start 06/27/18 at 09:00 Ranolazine (Ranexa) 1,000 mg Q12 PO Last administered on 06/28/18 09:02; Admin Dose 1,000 MG; Start 06/26/18 at 21:00 Sacubitril/ Valsartan (Entresto 24 Mg-26 Mg) 1 tab BID PO Last administered on 06/28/18 09:03; Admin Dose 1 TAB; Start 06/26/18 at 21:00 Atorvastatin Calcium (Lipitor) 80 mg DAILY@21 PO Last administered on 06/27/18 22:41; Admin Dose 80 MG; Start 06/26/18 at 21:00 IV Flush (NS 3 ml) 3 ml PER PROTOCOL IV ; Start 06/26/18 at 16:30 Ondansetron HCl (Zofran Inj) 4 mg Q6H PRN IV NAUSEA/VOMITING Last administered on 06/28/18 09:08; Admin Dose 4 MG; Start 06/26/18 at 16:30 Acetaminophen (Tylenol Tab) 650 mg Q6H PRN PO .PAIN 1-3 OR TEMP; Start 06/26/18 at 16:30 Acetaminophen/ Hydrocodone Bitart ([place] (5/325)) 1 tab Q6H PRN PO .MOD PAIN 4- 6; Start 06/26/18 at 16:30 Zolpidem Tartrate (Ambien) 5 mg QHS PRN PO .INSOMNIA; Start 06/26/18 at 16:30 Benazepril HCl (Lotensin) 10 mg BID PO Last administered on 06/28/18 09:03; Admin Dose 10 MG; Start 06/26/18 at 21:00 Clonazepam (Klonopin) 0.5 mg QHS PO Last administered on 06/26/18 21:04; Admin Dose 0.5 MG; Start 06/26/18 at 21:00 Clopidogrel Bisulfate (plaVIX) 75 mg DAILY PO Last administered on 06/28/18 09:03; Admin Dose 75 MG; Start 06/26/18 at 16:30 Ergocalciferol (Drisdol) 50,000 unit Sa@0900 PO ; Start 07/01/18 at 09:00 Montelukast Sodium (Singulair) 10 mg QHS PO ; Start 06/26/18 at 21:00 Propylthiouracil (Ptu) 50 mg DAILY PO Last administered on 06/28/18 09:03; Admin Dose 50 MG; Start 06/27/18 at 09:00 Pyridoxine HCl (Vitamin B6) 50 mg DAILY PO Last administered on 06/28/18 09:04; Admin Dose 50 MG; Start 06/27/18 at 09:00 Ranitidine HCl (Zantac) 150 mg Q12 PO Last administered on 06/28/18 09:03; Admin Dose 150 MG; Start 06/26/18 at 21:00 Tamsulosin HCl (Flomax) 0.4 mg HS PO Last administered on 06/27/18 22:42; Admin Dose 0.4 MG; Start 06/26/18 at 21:00 Fish Oil (Fish Oil) 1,000 mg DAILY PO Last administered on 06/27/18 09:03; Admin Dose 1,000 MG; Start 06/27/18 at 09:00 Nitroglycerin (Nitroglycerin 0.2 Mg/Hr) 2 patch DAILY TRANSDERM Last administered on 06/28/18 09:05; Admin Dose 2 PATCH; Start 06/27/18 at 10:39 Morphine Sulfate (morphine) 2 mg Q3 PRN IV SEVERE PAIN LEVEL 7-10 Last administered on 06/28/18 09:08; Admin Dose 2 MG; Start 06/27/18 at 14:30 Olopatadine HCl (Pataday) 1 drop DAILY BOTH EYES Last administered on 06/28/18 09:02; Admin Dose 1 DROP; Start 06/28/18 at 09:00 CHAN OTTO Jun 28, 2018 13:57
[2018-06-28] MEDS ORDERED: ONDANSETRON 4 MG INJ IV PRN (14:00)
[2018-06-28] MEDS ORDERED: morphine 2 MG INJ IV PRN (14:00)
[2018-06-28] MEDS ORDERED: AL HYDROX/MG HYDROX/SIMETH 30 ML CUP PO PRN (14:00)
[2018-06-28] MEDS ORDERED: ACETAMINOPHEN 325 MG TAB PO PRN (14:00)
[2018-06-28] MEDS ORDERED: OXYCODONE/ACETAMINOPHEN (5/325) TAB PO PRN (14:00)
--- NOTE | 2018-06-28 15:08 | PN ---
Date/Time of Note Date/Time of Note DATE: 06/28/18 TIME: 15:07 Assessment/Plan VTE Prophylaxis Risk score (from Ns)>0 risk: 2 SCD applied (from Ns): Yes Pharmacological prophylaxis: NA/contraindicated Pharm contraindication: low risk/ambulating Lines/Catheters IV C[facility]ter Type (from [facility] Peripheral IV Urinary Cath still in place: No Assessment/Plan Hospital Course 1. Chest pain with a history of coronary disease Patient has had multiple stents in the past No evidence of ACS the patient continues to report chest pain Cardiology consultation appreciated, PCI today with 2 stents placed in LAD Nitro patch and morphine Continue cardiac meds 2. Hypertension Continue home meds 3. BPH Continue Flomax 4. Hypothyroidism Continue PTU 5. Obesity Lifestyle changes Prophylaxis: SCDs DC planning: DC home tomorrow Result Diagram: 06/28/18 0507 06/28/18 0507 Results 24hrs Laboratory Tests Test 06/28/18 05:07 White Blood Count 8.1 Red Blood Count 4.60 L Hemoglobin 14.0 Hematocrit 42.3 Mean Corpuscular Volume 92.0 Mean Corpuscular Hemoglobin 30.4 Mean Corpuscular Hemoglobin Concent 33.1 Red Cell Distribution Width 12.7 Platelet Count 166 Mean Platelet Volume 10.6 H Immature Granulocytes % 0.400 Neutrophils % 52.7 Lymphocytes % 37.4 Monocytes % 7.1 Eosinophils % 2.0 Basophils % 0.4 Nucleated Red Blood Cells % 0.0 Immature Granulocytes # 0.030 Neutrophils # 4.3 Lymphocytes # 3.0 H Monocytes # 0.6 Eosinophils # 0.2 Basophils # 0.0 Nucleated Red Blood Cells # 0.0 Prothrombin Time 14.7 Prothrombin Time Ratio 1.1 INR International Normalized Ratio 1.14 Activated Partial Thromboplast Time 30.7 Thrombin Time 15.6 Sodium Level 143 Potassium Level 4.5 Chloride Level 109 Carbon Dioxide Level 23 Anion Gap 11 Blood Urea Nitrogen 18 Creatinine 0.97 Est Glomerular Filtrat Rate mL/min > 60 Glucose Level 115 Calcium Level 8.8 Total Bilirubin 0.3 Direct Bilirubin 0.00 Indirect Bilirubin 0.3 Aspartate Amino Transf (AST/SGOT) 23 Alanine Aminotransferase (ALT/SGPT) 27 Alkaline Phosphatase 46 Total Protein 6.8 Albumin 4.0 Globulin 2.80 Albumin/Globulin Ratio 1.42 Subjective 24 Hr Interval Summary Constitutional: no complaints Exam/Review of Systems Exam Vitals Vital Signs Date Temp Pulse Resp B/P (MAP) Pulse Ox O2 O2 Flow FiO2 Time Delivery Rate 06/28/18 58 25 107/65 97 14:42 (79) 06/28/18 98.3 13:57 06/28/18 Room Air 11:30 Intake and Output 06/27/18 06/27/18 06/28/18 1515:00 23:00 07:00 IntakeIntake Total 1000 ml 250 ml BalanceBalance 1000 ml 250 ml Constitutional: alert, oriented Respiratory: clear to auscultation Cardiovascular: regular rate and rhythm Gastrointestinal: soft; No distended Musculoskeletal: nl extremities to inspection Results Results 24hrs Laboratory Tests Test 06/28/18 05:07 White Blood Count 8.1 Red Blood Count 4.60 L Hemoglobin 14.0 Hematocrit 42.3 Mean Corpuscular Volume 92.0 Mean Corpuscular Hemoglobin 30.4 Mean Corpuscular Hemoglobin Concent 33.1 Red Cell Distribution Width 12.7 Platelet Count 166 Mean Platelet Volume 10.6 H Immature Granulocytes % 0.400 Neutrophils % 52.7 Lymphocytes % 37.4 Monocytes % 7.1 Eosinophils % 2.0 Basophils % 0.4 Nucleated Red Blood Cells % 0.0 Immature Granulocytes # 0.030 Neutrophils # 4.3 Lymphocytes # 3.0 H Monocytes # 0.6 Eosinophils # 0.2 Basophils # 0.0 Nucleated Red Blood Cells # 0.0 Prothrombin Time 14.7 Prothrombin Time Ratio 1.1 INR International Normalized Ratio 1.14 Activated Partial Thromboplast Time 30.7 Thrombin Time 15.6 Sodium Level 143 Potassium Level 4.5 Chloride Level 109 Carbon Dioxide Level 23 Anion Gap 11 Blood Urea Nitrogen 18 Creatinine 0.97 Est Glomerular Filtrat Rate mL/min > 60 Glucose Level 115 Calcium Level 8.8 Total Bilirubin 0.3 Direct Bilirubin 0.00 Indirect Bilirubin 0.3 Aspartate Amino Transf (AST/SGOT) 23 Alanine Aminotransferase (ALT/SGPT) 27 Alkaline Phosphatase 46 Total Protein 6.8 Albumin 4.0 Globulin 2.80 Albumin/Globulin Ratio 1.42 Medications Medication Current Medications Nitroglycerin (Nitroglycerin (Sl Tab) 0.4 Mg) 1 tab Q5M UP TO 3 DOSES PRN SL .CHEST PAIN Last administered on 06/27/18at 10:32; Admin Dose 1 TAB; Start 06/26/18 at 09:30 Amlodipine Besylate (Norvasc) 2.5 mg DAILY PO Last administered on 06/28/18 09:04; Admin Dose 2.5 MG; Start 06/27/18 at 09:00 Aspirin (Halfprin) 81 mg DAILY PO Last administered on 06/28/18 09:02; Admin Dose 81 MG; Start 06/27/18 at 09:00 Carvedilol (Coreg) 6.25 mg BID PO Last administered on 06/28/18 09:04; Admin Dose 6.25 MG; Start 06/26/18 at 21:00 Furosemide (Lasix) 20 mg DAILY PO Last administered on 06/28/18 09:03; Admin Dose 20 MG; Start 06/27/18 at 09:00 Isosorbide Mononitrate (Imdur) 90 mg DAILY PO Last administered on 06/28/18 09:03; Admin Dose 90 MG; Start 06/27/18 at 09:00 Ranolazine (Ranexa) 1,000 mg Q12 PO Last administered on 06/28/18 09:02; Admin Dose 1,000 MG; Start 06/26/18 at 21:00 Sacubitril/ Valsartan (Entresto 24 Mg-26 Mg) 1 tab BID PO Last administered on 06/28/18 09:03; Admin Dose 1 TAB; Start 06/26/18 at 21:00 Atorvastatin Calcium (Lipitor) 80 mg DAILY@21 PO Last administered on 06/27/18 22:41; Admin Dose 80 MG; Start 06/26/18 at 21:00 IV Flush (NS 3 ml) 3 ml PER PROTOCOL IV ; Start 06/26/18 at 16:30 Acetaminophen/ Hydrocodone Bitart ([place] (5/325)) 1 tab Q6H PRN PO .MOD PAIN 4-6; Start 06/26/18 at 16:30 Zolpidem Tartrate (Ambien) 5 mg QHS PRN PO .INSOMNIA; Start 06/26/18 at 16:30 Clonazepam (Klonopin) 0.5 mg QHS PO Last administered on 06/26/18 21:04; Admin Dose 0.5 MG; Start 06/26/18 at 21:00 Clopidogrel Bisulfate (plaVIX) 75 mg DAILY PO Last administered on 06/28/18 09:03; Admin Dose 75 MG; Start 06/26/18 at 16:30 Ergocalciferol (Drisdol) 50,000 unit Sa@0900 PO ; Start 07/01/18 at 09:00 Montelukast Sodium (Singulair) 10 mg QHS PO ; Start 06/26/18 at 21:00 Propylthiouracil (Ptu) 50 mg DAILY PO Last administered on 06/28/18 09:03; Admin Dose 50 MG; Start 06/27/18 at 09:00 Pyridoxine HCl (Vitamin B6) 50 mg DAILY PO Last administered on 06/28/18 09:04; Admin Dose 50 MG; Start 06/27/18 at 09:00 Ranitidine HCl (Zantac) 150 mg Q12 PO Last administered on 06/28/18 09:03; Admin Dose 150 MG; Start 06/26/18 at 21:00 Tamsulosin HCl (Flomax) 0.4 mg HS PO Last administered on 06/27/18 22:42; Admin Dose 0.4 MG; Start 06/26/18 at 21:00 Fish Oil (Fish Oil) 1,000 mg DAILY PO Last administered on 06/27/18 09:03; Admin Dose 1,000 MG; Start 06/27/18 at 09:00 Nitroglycerin (Nitroglycerin 0.2 Mg/Hr) 2 patch DAILY TRANSDERM Last administered on 06/28/18 09:05; Admin Dose 2 PATCH; Start 06/27/18 at 10:39 Olopatadine HCl (Pataday) 1 drop DAILY BOTH EYES Last administered on 06/28/18 09:02; Admin Dose 1 DROP; Start 06/28/18 at 09:00 Acetaminophen (Tylenol Tab) 650 mg Q4H PRN PO PAIN; Start 06/28/18 at 14:00 Oxycodone/ Acetaminophen (Percocet (5/ 325)) 1 tab Q4H PRN PO PAIN; Start 06/28/18 at 14:00 Morphine Sulfate (morphine) 1 mg Q1H PRN IV PAIN; Start 06/28/18 at 14:00 Al Hydrox/Mg Hydrox/Simethicone (Mag-Al Plus) 30 ml Q4H PRN PO GASTROINTESTINAL UPSET; Start 06/28/18 at 14:00 Ondansetron HCl (Zofran Inj) 4 mg Q4H PRN IV NAUSEA AND/OR VOMITING; Start 06/28/18 at 14:00 Sodium Chloride 1,000 ml @ 75 mls/hr [id number] IV Last administered on 06/28/18at 14:16; Admin Dose 75 MLS/HR; Start 06/28/18 at 13:43; Stop 06/29/18 at 03:02 JAMES ACOSTA Jun 28, 2018 15:07
[2018-06-28] MEDS: NITROGLYCERIN (SL) 0.4 MG TAB SL PRN (18:00)
[2018-06-28] MEDS: TAMSULOSIN (SR) 0.4 MG CAP PO SCH (20:59)
[2018-06-28] MEDS: ATORVASTATIN 40 MG TAB PO SCH (20:59)
[2018-06-28] MEDS: MONTELUKAST 10 MG TAB PO SCH (21:00)
[2018-06-28] MEDS: clonAZEPAM 0.5 MG TAB PO SCH (21:00)
--- NOTE | 2018-06-28 23:56 | CARRPT ---
DATE OF PROCEDURE: 06/28/2018 TYPE OF PROCEDURE: 1. Left heart catheterization. 2. Coronary angiography. 3. Intravascular ultrasound of left main. 4. Percutaneous transluminal coronary angioplasty with placement of a Resolute drug-eluting stents x 2, 2.5 x 30 mm and 2.5 x 8 mm to mid left anterior descending. 5. Moderate conscious sedation. ATTENDING PHYSICIAN: Dr. Chan Brooks. REFERRING PHYSICIAN: Dr. Alice Mckenna, from the hospitalist service. INDICATION: Unstable angina. TYPE OF ANESTHESIA: Conscious and local. BRIEF HISTORY AND HOSPITAL COURSE: Mr. Anguiano is a 67-year-old male with a history of hypertensio n, dyslipidemia, coronary artery disease, status post multiple prior PTCA and stent placement procedu res, cardiomyopathy, decreased left ventricular ejection fraction, AICD, who presented with complaint s of recurrent substernal chest pain. The patient admitted to the hospital, ruled out for myocardial infarction. He continued to have chest pain requiring ongoing nitrate therapy throughout the night, now been brought to cardiac cathode maker in order to assess the possibility of significant obstructive c oronary artery disease lending to symptoms of chest pain and subsequent admit to the hospital. PROCEDURE: After informed consent was obtained, the patient was brought to the [facility] cardiac catheterization lab where his right radial area was prepped and draped in sterile fas hion, 2% lidocaine was infiltrated into right radial area in order to achieve adequate anesthesia. U sing modified Seldinger technique, the radial artery was cannulated and a 6-Pashto arterial sheath wa s placed. A 6-Pashto JL3.5 catheter was used to cannulate the left main coronary ostium. With contr ast injection, multiple views of the left coronary system were obtained. JL3.5 was removed a guidewi re and a JR4 was used to cannulate the right coronary arterial ostium constriction most of the right coronary system were obtained. JR4 was removed over a guidewire and after additionally being used to measure LVEDP and pullback across the aortic valve. Subsequently, at this time, we directly do inte rventional procedure. The patient was given Angiomax bolus continuous infusion. A 0.014 balance luis ght guidewire was passed this lesion after the left main was cannulated with a Q3. Subsequently, at this time, the intravascular ultrasound was placed into the very proximal LAD and then pulled back ac ross the left main finding the smallest area and this was assessed ____ the area of 6.7 just above th e cutoff for a flow-limiting lesion. Subsequently, at this time, it was elected to proceed with sten ting of the LAD at the left main was with cut off. The patient's wire was crossed the lesion. A 2.0 x 15 balloon was used to predilate the lesion up to 14 to 16 atmospheres. This was removed and the lesion was stented with a 2.5 x 30 mm drug-eluting stent deployed at 14 atmospheres, post-dilated wit h the stent delivery system at 16 atmospheres. At this time, to followup angiogram was obtained reve aling excellent deployment of stent but possible additional disease just distal to the stent, so a 2. 5 x 8 mm stent was added just distal to this with 1 to 2 mm overlap and it was deployed at 12 atmosph eres, postdilated with the stent delivery system up to 14 atmospheres. The stent delivery system was then pulled to overlap area and inflations were made to 18 atmospheres. The stent delivery balloon was removed. The patient was given 200 mcg IC nitroglycerin. Followup angiogram was obtained reveal ing excellent deployment of stent, RICO 3 flow throughout the vessel, no signs of complication includ ing perforation or dissection. Subsequently, at this time, the interventional guide and guidewires w ere removed. The patient's sheath was removed. TR band was applied. This completed the procedure. There were no noted complications. FINDINGS: Coronary angiography: Left main 4 mm with a distal 50% stenosis. The circumflex proximally is a 3 m m vessel and has a stented zone in its mid portion with in-stent restenosis up to approximately 30% t o 40% but still excellent flow down the circumflex distally in the circ continuation AV groove. Ther e is a small caliber vessel with moderate diffuse disease up to approximately a 30% to 40%. The LAD proximally is a 3.5 mm vessel and has a calcified proximal portion with some focal lesion of approxim ately 20% to 30% and then there is a long stented zone extending in the LAD from proximal to mid with some mild in-stent restenosis in the proximal portion; and then just at the distal portion of the st ented zone, there is a high grade in-stent restenosis up to approximately 80% to 90% with a RICO 2 fl ow just distal to the stent. The patient's right coronary artery proximally is a 3 mm vessel and has a stented zone from proximal all the way to mid distal with the mid distal portion of having in-sten t restenosis up to approximately a 30% to 40%. In the ER, coronary given off a PDA 2 mm with no sign ificant stenosis. Measurement of left ventricular end-diastolic pressure 20 to 30, no significant aortic stenosis by gr adient. PTCA and stent placement: Prior to PTCA and stent placement in the patient's distal LAD, there is a hazy appearing the stent within it. There is no stent approximately 80% and in the area just distal stent a proximal 90% stenosis with sluggish RICO 2 flow. Post-PTCA and stent placement, the patient had no residual stenosis. RICO 3 flow throughout the vessel, no signs of complication including perf oration or dissection. TOTAL FLUOROSCOPY TIME: 18.9 minutes. TOTAL CONTRAST: ____ mL. IMPRESSION: 1. Single vessel obstructive coronary artery disease involving a mid LAD lesion, status post success ful [employer]CHANGE SPECIALIST and stent placement x2 with drug-eluting stent. 2. Elevated left heart filling pressures. 3. No symptom use by gradient. 4. Widely patent major stent in the patient's circumflex, LAD and right coronary artery with mild to moderate in-stent restenosis. RECOMMENDATIONS: In light of procedure findings at this time would: 1. Maintain the patient on Brilinta 90 mg 1 tab p.o. b.i.d. for at least 6 months. 2. Maximize medical management. 3. Dyslipidemia. Continue his aspirin indefinitely. 4. Aggressive risk factor reduction. 5. The patient will be readmitted to telemetry floor for post-catheterization observation and contin ued management of symptoms with probable discharge the following day. Dictated By: CHAN BOWDEN/HILDA Conf#: [id number] DID#: [id number] CC: ALICE MCKENNA MD;*EndCC*
[2018-06-29] VITALS (19 sets, daily range): BP systolic 102–155; BP diastolic 53–102; PULSE 50–63; RESP 8–19
--- NOTE | 2018-06-29 10:24 | PDOCDIS ---
Discharge Instructions CONDITION [id number] Patient Condition: [id number] Good HOME CARE INSTRUCTIONS: [id number] Diet Instructions: [id number] Modified Fat ACTIVITY: [id number] Activity Restrictions: [id number] No Restrictions FOLLOW UP/APPOINTMENTS Follow-up Plan FOLLOW UP WITH YOUR PCP AND PODIATRIC FOOT AND ANKLE SPECIALIST IN 1-2 WEEKS JAMES ACOSTA Jun 29, 2018 10:24
--- NOTE | 2018-06-29 10:28 | CONS ---
Assessment/Plan Assessment/Plan Hospital Course (Demo Recall) IMPRESSION: 1. Chest pain, assess for acute coronary syndrome. 2. Coronary artery disease, status post multiple prior PTCA and stent placement procedures, most recently 11/2016 with all stents being patent by catheterization in 07/2017. Now post-op s/p stent x 2 LAD 4. Hypertension. 5. Dyslipidemia. 6. Cardiomyopathy with decreased left ventricular ejection fraction. 7. History of hyperthyroidism on medications with subsequent hypothyroidism. 8. Benign prostatic hypertrophy. 9. Chronic obstructive pulmonary disease. Recc: -Tele -serial ecg's -Continue asa/brilinta -Continue imdur/norvasc/ranexa -Continue entresto -Continue statin -Contineu fish oil -Ok for d/c from cardiac standpoint with outpatient f/u Consultation Date/Type/Reason Admit Date/Time Jun 28, 2018 at 09:36 Initial Consult Date 06/26/18 Type of Consult Cardiology Reason for Consultation chest pain Requesting Provider: JAMES ACOSTA Date/Time of Note DATE: 06/29/18 TIME: 10:24 Exam/Review of Systems Vital Signs Vitals Vital Signs Date Temp Pulse Resp B/P (MAP) Pulse Ox O2 O2 Flow FiO2 Time Delivery Rate 06/29/18 57 18 139/72 97 Room Air 08:30 (94) 06/29/18 98.1 08:15 Intake and Output 06/28/18 06/28/18 06/29/18 1414:59 22:59 06:59 IntakeIntake Total 120 ml 865 ml 499 ml OutputOutput Total 1225 ml 350 ml BalanceBalance 120 ml -360 ml 149 ml Exam Exam Review of Systems: CONSTITUTIONAL: No fevers, chills. PULMONARY: No sob CARDIOVASCULAR: No chest pain/palpitations GASTROINTESTINAL: No nausea/vomiting. GENITOURINARY: No hematuria/dysuria. MUSCULOSKELETAL: No myagias/arthalgias. PSYCHIATRIC: The patient denies depression. NEUROLOGIC: No weakness Constitutional: alert Psych: no complaints Head: normocephalic ENMT: mucosa pink and moist Neck: supple, jvd (9 cm water) Respiratory: clear to auscultation Cardiovascular: regular rate and rhythm Gastrointestinal: soft, non-tender Musculoskeletal: muscle tone (normal) Extremities: edema (none) Neurological: other (No focal deficits) Labs Result Diagram: 06/29/18 0433 06/29/18 0433 Results 24hrs Laboratory Tests Test 06/28/18 21:33 06/29/18 04:33 Potassium Level 4.6 4.8 Magnesium Level 2.0 White Blood Count 8.2 Red Blood Count 4.69 L Hemoglobin 14.3 Hematocrit 42.8 Mean Corpuscular Volume 91.3 Mean Corpuscular Hemoglobin 30.5 Mean Corpuscular Hemoglobin Concent 33.4 Red Cell Distribution Width 12.6 Platelet Count 164 Mean Platelet Volume 10.3 Immature Granulocytes % 0.400 Neutrophils % 61.8 Lymphocytes % 27.7 Monocytes % 8.1 Eosinophils % 1.6 Basophils % 0.4 Nucleated Red Blood Cells % 0.0 Immature Granulocytes # 0.030 Neutrophils # 5.1 Lymphocytes # 2.3 Monocytes # 0.7 Eosinophils # 0.1 Basophils # 0.0 Nucleated Red Blood Cells # 0.0 Sodium Level 142 Chloride Level 109 Carbon Dioxide Level 26 Anion Gap 7 Blood Urea Nitrogen 15 Creatinine 1.02 Est Glomerular Filtrat Rate mL/min > 60 Glucose Level 91 Calcium Level 9.0 Medications Medications Current Medications Nitroglycerin (Nitroglycerin (Sl Tab) 0.4 Mg) 1 tab Q5M UP TO 3 DOSES PRN SL .CHEST PAIN Last administered on 06/28/18 18:00; Admin Dose 1 TAB; Start 06/26/18 at 09:30 Amlodipine Besylate (Norvasc) 2.5 mg DAILY PO Last administered on 06/28/18 09:04; Admin Dose 2.5 MG; Start 06/27/18 at 09:00 Aspirin (Halfprin) 81 mg DAILY PO Last administered on 06/28/18 09:02; Admin Dose 81 MG; Start 06/27/18 at 09:00 Carvedilol (Coreg) 6.25 mg BID PO Last administered on 06/28/18 20:59; Admin Dose 6.25 MG; Start 06/26/18 at 21:00 Furosemide (Lasix) 20 mg DAILY PO Last administered on 06/28/18 09:03; Admin Dose 20 MG; Start 06/27/18 at 09:00 Isosorbide Mononitrate (Imdur) 90 mg DAILY PO Last administered on 06/28/18 09:03; Admin Dose 90 MG; Start 06/27/18 at 09:00 Ranolazine (Ranexa) 1,000 mg Q12 PO Last administered on 06/28/18 21:52; Admin Dose 1,000 MG; Start 06/26/18 at 21:00 Sacubitril/ Valsartan (Entresto 24 Mg-26 Mg) 1 tab BID PO Last administered on 06/28/18 20:59; Admin Dose 1 TAB; Start 06/26/18 at 21:00 Atorvastatin Calcium (Lipitor) 80 mg DAILY@21 PO Last administered on 06/28/18 20:59; Admin Dose 80 MG; Start 06/26/18 at 21:00 IV Flush (NS 3 ml) 3 ml PER PROTOCOL IV ; Start 06/26/18 at 16:30 Acetaminophen/ Hydrocodone Bitart ([place]osinee (5/325)) 1 tab Q6H PRN PO .MOD PAIN 4- 6; Start 06/26/18 at 16:30 Zolpidem Tartrate (Ambien) 5 mg QHS PRN PO .INSOMNIA; Start 06/26/18 at 16:30 Clonazepam (Klonopin) 0.5 mg QHS PO Last administered on 06/26/18 21:04; Admin Dose 0.5 MG; Start 06/26/18 at 21:00 Clopidogrel Bisulfate (plaVIX) 75 mg DAILY PO Last administered on 06/28/18 09:03; Admin Dose 75 MG; Start 06/26/18 at 16:30 Ergocalciferol (Drisdol) 50,000 unit Sa@0900 PO ; Start 07/01/18 at 09:00 Montelukast Sodium (Singulair) 10 mg QHS PO ; Start 06/26/18 at 21:00 Propylthiouracil (Ptu) 50 mg DAILY PO Last administered on 06/28/18 09:03; Admin Dose 50 MG; Start 06/27/18 at 09:00 Pyridoxine HCl (Vitamin B6) 50 mg DAILY PO Last administered on 06/28/18 09:04; Admin Dose 50 MG; Start 06/27/18 at 09:00 Ranitidine HCl (Zantac) 150 mg Q12 PO Last administered on 06/28/18 20:59; Admin Dose 150 MG; Start 06/26/18 at 21:00 Tamsulosin HCl (Flomax) 0.4 mg HS PO Last administered on 06/28/18at 20:59; Admi n Dose 0.4 MG; Start 06/26/18 at 21:00 Fish Oil (Fish Oil) 1,000 mg DAILY PO Last administered on 06/27/18at 09:03; Admin Dose 1,000 MG; Start 06/27/18 at 09:00 Nitroglycerin (Nitroglycerin 0.2 Mg/Hr) 2 patch DAILY TRANSDERM Last administered on 06/28/18at 09:05; Admin Dose 2 PATCH; Start 06/27/18 at 10:39 Olopatadine HCl (Pataday) 1 drop DAILY BOTH EYES Last administered on 06/28/18at 09:02; Admin Dose 1 DROP; Start 06/28/18 at 09:00 Acetaminophen (Tylenol Tab) 650 mg Q4H PRN PO PAIN; Start 06/28/18 at 14:00 Oxycodone/ Acetaminophen (Percocet (5/ 325)) 1 tab Q4H PRN PO PAIN; Start 06/28/18 at 14:00 Morphine Sulfate (morphine) 1 mg Q1H PRN IV PAIN; Start 06/28/18 at 14:00 Al Hydrox/Mg Hydrox/Simethicone (Mag-Al Plus) 30 ml Q4H PRN PO GASTROINTESTINAL UPSET; Start 06/28/18 at 14:00 Ondansetron HCl (Zofran Inj) 4 mg Q4H PRN IV NAUSEA AND/OR VOMITING; Start 06/28/18 at 14:00 CHAN OTTO Jun 29, 2018 10:28
[2018-06-29] MEDS: CLOPIDOGREL 75 MG TAB PO SCH (10:31)
[2018-06-29] MEDS: PYRIDOXINE 50 MG TAB PO SCH (10:31)
[2018-06-29] MEDS: SACUBITRIL/VALSARTAN (24mg-26mg) TABLET PO SCH (10:31)
[2018-06-29] MEDS: FISH OIL 1,000 MG CAP PO SCH (10:32)
[2018-06-29] MEDS: ASPIRIN (EC) 81 MG TAB PO SCH (10:33)
[2018-06-29] MEDS: PROPYLTHIOURACIL 50 MG TAB PO SCH (10:33)
[2018-06-29] MEDS: ISOSORBIDE MONONITRATE(SR)30 MG TAB PO SCH (10:33)
[2018-06-29] MEDS: RANITIDINE 150 MG TAB PO SCH (10:33)
[2018-06-29] MEDS: AMLODIPINE 2.5 MG TAB PO SCH (10:34)
[2018-06-29] MEDS: FUROSEMIDE 20 MG TAB PO SCH (10:34)
[2018-06-29] MEDS: NITROGLYCERIN 0.2 MG/HR PATCH TRANSDERM SCH (10:36)
--- NOTE | 2018-06-29 15:33 | DS ---
Date/Time of Note Date/Time of Note DATE: 06/29/18 TIME: 15:24 Discharge Summary Admission/Discharge Info Admit Date/Time Jun 28, 2018 at 09:36 Discharge Date/Time Jun 29, 2018 at 11:30 Discharge Diagnosis 1. Chest pain with a history of coronary disease Patient has had multiple stents in the past No evidence of ACS but patient with persistent chest pain now status post PCI with 2 more stents placed in the LAD Cardiology consultation appreciated, PCI today with 2 stents placed in LAD, patient now appears to have 16 total stents placed Nitro patch and morphine Continue cardiac meds 2. Hypertension Continue home meds 3. BPH Continue Flomax 4. Hypothyroidism Continue PTU 5. Obesity Lifestyle changes Patient Condition: Good Hospital Course Patient is a 67-year-old male with a history of coronary disease status post multiple PCI's, cardiomyopathy with an EF of 35%, hypertension, dyslipidemia, hypothyroidism, BPH, obesity who presents with pressure-like pain on the left side of the chest. Patient had no evidence of ACS but did continue to have chest pain and was taken for PCI with 2 more stents placed in the LAD. Patient now appears to have 16 total stents placed, patient was stable for DC and was to continue his cardiac meds. On the day of discharge patient's vitals, labs and physical exam are stable. Home Meds Reported Medications Sacubitril/Valsartan (Entresto 24 mg-26 mg Tablet) 1 Each Tablet, 1 EACH PO BID, TAB 06/26/18 Olopatadine HCl (Pazeo) 2.5 Ml Drops, 1 DRP BOTH EYES DAILY, BOTTLE 06/26/18 Ibuprofen* (Motrin*) 600 Mg Tab, 600 MG PO Q6H PRN for PAIN, TAB 06/26/18 Hydrocodone/Acetaminophen ([place] 10-325 Tablet) 1 Each Tablet, 1 EACH PO Q6 PRN for PAIN, TAB 06/26/18 Furosemide* (Furosemide*) 20 Mg Tablet, 20 MG PO EVERY OTHER DAY, #30 TAB 06/26/18 Clonazepam* (Clonazepam*) 0.5 Mg Tablet, 0.5 MG PO QHS, TAB 06/26/18 Propylthiouracil* (Propylthiouracil*) 50 Mg Tablet, 50 MG PO DAILY, TAB 06/26/18 Aspirin (Low Dose Aspirin) 81 Mg Tablet.dr, 81 MG PO DAILY, #30 TAB 06/26/18 Isosorbide Mononitrate* (Isosorbide Mononitrate*) 30 Mg Tab.er.24h, 90 MG PO DAILY, TAB.SA 06/26/18 Benazepril Hcl* (Benazepril Hcl*) 10 Mg Tablet, 10 MG PO BID, #60 TAB 06/26/18 Ergocalciferol (Vitamin D2) (VITAMIN D2) 50,000 Unit Capsule, 89563 UNIT PO EVERY TUESDAY, CAP 06/26/18 Pyridoxine Hcl (Vitamin B6) 50 Mg Tab, 50 MG PO DAILY, TAB 06/26/18 [place]-3/Dha/Epa/Fish Oil (FISH OIL 1,000 MG SOFTGEL) 1 Each Capsule, 1 EACH PO DAILY, CAP 06/26/18 Ranolazine* (Ranexa*) 1,000 Mg Tab.sr.12h, 1000 MG PO Q12, TAB 06/26/18 Ranitidine Hcl* (Ranitidine Hcl*) 150 Mg Tablet, 150 MG PO Q12, #60 TAB 07/11/17 Amlodipine Besylate* (Amlodipine Besylate*) 2.5 Mg Tablet, 2.5 MG PO DAILY, #30 TAB 07/11/17 Tamsulosin Hcl* (Tamsulosin Hcl*) 0.4 Mg Cap.er.24h, 0.4 MG PO HS, CAP 07/11/17 Carvedilol* (Carvedilol*) 6.25 Mg Tablet, 6.25 MG PO BID, #60 TAB 07/11/17 Clopidogrel Bisulfate (Clopidogrel) 75 Mg Tablet, 75 MG PO DAILY, #30 TAB 07/11/17 Montelukast Sodium* (Singulair*) 10 Mg Tablet, 10 MG PO QHS, #30 TAB 07/11/17 Rosuvastatin Calcium* (Crestor*) 20 Mg Tablet, 20 MG PO QHS, #30 TAB 07/11/17 Discontinued Reported Medications Clonazepam* (Clonazepam*) 0.5 Mg Tablet, 0.5 MG PO DAILY PRN for ANXIETY, TAB 07/11/17 Methimazole* (Methimazole*) 10 Mg Tablet, 10 MG PO DAILY, TAB 07/11/17 Benazepril Hcl* (Benazepril Hcl*) 10 Mg Tablet, 10 MG PO DAILY, #30 TAB 07/11/17 Isosorbide Mononitrate* (Isosorbide Mononitrate*) 60 Mg Tab.er.24h, 60 MG PO DAILY, TAB 07/11/17 Salmeterol Xinaf/Fluticasone* (Advair*) 250-50 Diskus Inhaler, 1 INH INHALATION BID, #1 INHALER 07/11/17 [place]-3 Acid Ethyl Esters (Lovaza) 1 Gm Capsule, 1 GM PO DAILY, CAP 07/11/17 Ranolazine* (Ranexa*) 500 Mg Tab.sr.12h, 500 MG PO Q12, TAB 07/11/17 Follow-up Plan FOLLOW UP WITH YOUR PCP AND [employer]PER[employer] HELPER IN 1-2 WEEKS Primary Care Provider Not On Staff Doctor Time spent on discharge: > 30 minutes JAMES ACOSTA Jun 29, 2018 15:33
--- NOTE | 2018-06-29 15:54 | RADRPT ---
Vent Rate: 52 bpm RR Interval: 1160 msec VA Interval: 164 msec QRS Duration: 71 msec QT Interval: 486 msec QTC Interval: 451 msec P-R-T [place]: 60 - -39 - 18 degrees Sinus rhythm...normal P axis, V-rate 50- 99 Inferior infarct, old...Q >35mS, II III aVF Anterior infarct, old...Q >40mS, abnormal ST-T, V2-V5 Lead(s) V5 were not used for morphology analysis Electronically Signed By: Angel Mckeon
[2018-07-01] MEDS ORDERED: ERGOCALCIFEROL 50,000 UNIT CAP PO SCH (09:00)
== END 2018-06-29 11:30 | disposition home or self-care (01) | DRG 247 ==
LOC: E/R 09:17 → 6WM 11:51 → OBSVTOIN 06-28 09:36 → ICU 06-28 17:40
PROVIDERS: ADMIT Internal Medicine; ATTEND Internal Medicine
PROC: B240ZZ3 Ultrasonography of Single Coronary Artery, Intravascular (ICD-10-PCS; 2018-06-28)
PROC: 027035Z Dilation of Coronary Artery, One Artery with Two Drug-eluting Intraluminal Devices, Percutaneous Approach (ICD-10-PCS; principal; 2018-06-28 14:00)
PROC: 4A023N7 Measurement of Cardiac Sampling and Pressure, Left Heart, Percutaneous Approach (ICD-10-PCS; 2018-06-28 14:00)
PROC: B211YZZ Fluoroscopy of Multiple Coronary Arteries using Other Contrast (ICD-10-PCS; 2018-06-28 14:00)
DX: T82.855A Stenosis of coronary artery stent, initial encounter (principal); I42.9 Cardiomyopathy, unspecified; I25.10 Atherosclerotic heart disease of native coronary artery without angina pectoris; I10 Essential (primary) hypertension; E78.5 Hyperlipidemia, unspecified; N40.0 Benign prostatic hyperplasia without lower urinary tract symptoms; E03.9 Hypothyroidism, unspecified; J44.9 Chronic obstructive pulmonary disease, unspecified; E66.9 Obesity, unspecified; Z95.5 Presence of coronary angioplasty implant and graft; Y83.2 Surgical operation with anastomosis, bypass or graft as the cause of abnormal reaction of the patient, or of later complication, without mention of misadventure at the time of the procedure; Z68.32 Body mass index [BMI] 32.0-32.9, adult
CPT/HCPCS: 36415; 71045; 80048; 80053; 80061; 82550; 82553; 82962; 83036; 83735; 84100; 84132; 84484; 85025; 85049; 85610; 85670; 85730; 87081; 92978; 93005; 93306; 93458; 96374; 96375; G0378; C1725; C1874; C1887; C9600; J0153; J0583; J1170; J1644; J2250; J2270; J2405; J3010; J7030; J7040; Q9967